=== PATIENT | female | born 1945 | race Caucasian/White ===

== ENCOUNTER 2017-12-11 16:04 | Inpatient (IN) | payer MEDICARE ==
[2017-12-11] VITALS (12 sets, daily range): BP systolic 131–210; BP diastolic 72–115; PULSE 78–97; RESP 18–24; TEMP 98.7–99.2; O2SAT 93–100
[~2017-12-11] VITALS: Ht 172.7 cm; Wt 70.3 kg
[~2017-12-11 16:04] MED LIST: ALPR0.5T99 PO; AMOX500T PO; ATOR10 PO; CALCTAB70 PO; CHEL50TA PO; ECOT325T PO; FLON0.053; FOSA70TA OR; FURO1TAB93 PO; GING550C PO; GLUCTAB PO; I-VITAB2 PO; LANSO15 PO; LEFL20 PO; NORT1CAP54 PO; NORV5TAB PO; PILO5TAB PO; PRED10 PO; RANI1TAB7 PO; REQU0.25 PO; SALI0.65; TYLE500T PO; VENTAER INH; VITA-13 PO; [UNRECOGNIZED DRUG - CODE] EACH EYE; [UNRECOGNIZED DRUG - CODE] EACH EYE
--- NOTE | 2017-12-11 16:38 | RADRPT ---
EXAM DATE: 12/11/2017 4:28 PM EDT AGE/SEX: 71 years / Female INDICATIONS: Chest pain, STEMI alert. CLINICAL DATA: This is the patient's initial encounter. Patient reports that signs and symptoms have been present for 1 day and indicates a pain score of Nonresponsive. MEDICAL/SURGICAL HISTORY: Non-responsive. Non-responsive. COMPARISON: No prior exams available for comparison. FINDINGS: The right hemidiaphragm is elevated. Lungs are hypoaerated but free of significant airspace disease Heart is mildly enlarged. Osseous structures appear intact. Postsurgical clips are seen in the left axilla. CONCLUSION: No evidence of acute airspace disease or significant congestion. Electronically signed by: Ford To MD 12/11/2017 4:36 PM EDT
--- NOTE | 2017-12-11 16:44 | PD ---
HPI Chief Complaint: Cardiac Complaint Time Seen by Provider: 16:13 Travel History International Travel<30 days: No Contact w/Intl Traveler<30days: No Traveled to known affect area: No History of Present Illness HPI 71-year-old female was found in by EMS after a fall. Patient states that she had a syncopal episode at home and fell. Patient states that she has a short moment of loss of consciousness. Patient complains of headache in the back of the head. Patient denies any visual change. Patient denies any neck pain. Patient denies any chest pain or shortness of breath. Patient denies abdominal pain. Patient denies any nausea vomiting diarrhea. Patient denies any fever chills. Patient denies any focal weakness or numbness of the extremity. Patient has history of diabetes type 2, hyperlipidemia. Patient has history of lung cancer breast cancer and melanoma. Patient status post right thoracotomy and lobectomy. Patient also has history of COPD, DVT, lupus, fibromyalgia, scleroderma involving esophagus, rheumatoid arthritis, thyroid nodules, GERD, peripheral neuropathy. EMS was called. EKG changes with questionable STEMI. STEMI was called by EMS on the way to the ED. PFSH Past Medical History Arthritis: Yes Asthma: No Autoimmune Disease: Yes Blood Disorders: No Cancer: Yes (RIGHT UPPER/MID LUNG, L BREAST CA, MELANOMA L LEG) Cardiovascular Problems: No COPD: Yes Diabetes: Yes (TYPE II, CONTROLLED) Patient Takes Glucophage: No Diminished Hearing: No Deep Vein Thrombosis: Yes Endocrine: Yes Gastrointestinal Disorders: Yes (HX OF GERD, SCLERODERMA OF ESOPHAGUS, ASPIRATION ISSUES) GERD: Yes Glaucoma: No Genitourinary: Yes Hepatitis: No Hiatal Hernia: No Hypertension: Yes Immune Disorder: Yes (LUPUS,FIBROMYALGIA, SCLERDERMA OF ESOPHAGUS, RHEUMATOID ARTHRITIS) Medical other: Yes (PERIPHERAL NEUROPATHY, ) Musculoskeletal: Yes (RHEUMATOID ARTHRITIS, BACK AND NECK PROBLEMS) Neurologic: Yes (RAYNAUD'S SYNDROME ZACKARY HANDS,HX OF THORACIC OUTLET SYNDROME, FIBROMYALGIA) Psychiatric: No Reproductive: No Respiratory: Yes (HX OF R LUNG CA 2006, COPD, SINUSITIS) Immunizations Current: Yes Thyroid Disease: Yes (MULTIPLE NODULES) ?: Not Menopausal: Yes Past Surgical History AICD: No Gynecologic Surgery: Yes (CERVICAL POLYPECTOMY) Joint Replacement: No Mastectomy: Yes Pacemaker: No Thoracic Surgery: Yes (THORACOTOMY WITH RIGHT UPPER AND MIDDLE LOBE REMOVED 2006) Other Surgery: Yes (MELANOMA REMOVED) Social History Alcohol Use: Yes (RARELY) Tobacco Use: No Substance Use: No Allergies-Medications (Allergen,Severity, Reaction): Coded Allergies: acetaminophen (Unverified Allergy, Severe, 02/11/17) azathioprine (Unverified Allergy, Severe, HEADACHES, FEVER, 02/11/17) cephalexin (Unverified Allergy, Severe, 02/11/17) ciprofloxacin (Unverified Allergy, Severe, DYSPNEA, 02/11/17) codeine (Unverified Allergy, Severe, 02/11/17) gabapentin (Unverified Allergy, Severe, VERTIGO, BLURRED VISION, 02/11/17) levofloxacin (Unverified Allergy, Severe, 02/11/17) oxycodone (Unverified Allergy, Severe, 02/11/17) pregabalin (Unverified Allergy, Severe, > HEPATIC ENZYMES, 02/11/17) cefazolin (Unverified Allergy, Intermediate, RASH, ITCHING, 02/11/17) duloxetine (Unverified Adverse Reaction, Unknown, NAUSEA, SEVERE HEADACHES , 02/11/17) Reported Meds & Prescriptions Reported Meds & Active Scripts Active Reported Atorvastatin (Atorvastatin Calcium) 10 Mg Tab 10 Mg PO HS Pamelor (Nortriptyline HCl) 25 Mg Cap 25 Mg PO HS Lasix (Furosemide) 40 Mg Tab 40 Mg PO BID Prednisone 10 Mg Tab 10 Mg PO DAILY Requip (Ropinirole HCl) 0.5 Mg Tab 0.5 Mg PO HS Xanax (Alprazolam) 0.5 Mg Tab 0.5 Mg PO Q4H PRN Glimepiride 1 Mg Tab 1 Mg PO DAILY Take with breakfast or first main meal Ventolin Hfa 18 GM Inh (Albuterol Sulfate) 90 Mcg/Act Aer 1 Puff INH Q4H PRN Aspirin 325 Mg Tab 325 Mg PO DAILY Review of Systems General / Constitutional: No: Fever Eyes: No: Visual changes HENT: Positive: Headaches Cardiovascular: No: Chest Pain or Discomfort Respiratory: No: Shortness of Breath Gastrointestinal: No: Abdominal Pain Genitourinary: No: Dysuria Musculoskeletal: No: Pain Skin: No Rash Neurologic: No: Weakness Psychiatric: No: Depression Endocrine: No: Polydipsia Hematologic/Lymphatic: No: Easy Bruising Physical Exam Narrative GENERAL: Well-nourished, well-developed patient. SKIN: Focused skin assessment warm/dry. HEAD: Normocephalic. Patient has 2 cm laceration on the occipital scalp area. No active bleeding. EYES: No scleral icterus. No injection or drainage. NECK: Supple, trachea midline. No JVD or lymphadenopathy. CARDIOVASCULAR: Regular rate and rhythm without murmurs, gallops, or rubs. RESPIRATORY: Breath sounds equal bilaterally. No accessory muscle use. GASTROINTESTINAL: Abdomen soft, non-tender, nondistended. MUSCULOSKELETAL: No cyanosis, or edema. BACK: Nontender without obvious deformity. No CVA tenderness. Neurologic exam: Patient is awake and alert oriented 3. Patient moves all extremity well. No obvious focal neurological deficit. Data Data Last Documented VS Vital Signs Date Time Temp Pulse Resp B/P (MAP) Pulse Ox O2 Delivery O2 Flow Rate FiO2 12/11/17 18:29 84 18 131/75 (93) 96 Nasal Cannula 2.00 12/11/17 16:24 99.1 Orders Orders Chest, Single Ap (12/11/17 16:17) Electrocardiogram (12/11/17 16:13) Complete Blood Count With Diff (12/11/17 16:13) Comprehensive Metabolic Panel (12/11/17 16:13) Creatine Kinase (Cpk) (12/11/17 16:13) Troponin I (12/11/17 16:13) Prothrombin Time / Inr (Pt) (12/11/17 16:13) Act Partial Throm Time (Ptt) (12/11/17 16:13) Ct Brain W/O Iv Contrast(Rout) (12/11/17 16:13) Iv Access Insert/Monitor (12/11/17 16:13) Ecg Monitoring (12/11/17 16:13) Oximetry (12/11/17 16:13) Ct Cerv Spine W/O Contrast (12/11/17 16:13) Nortriptyline (Pamelor) (12/11/17 16:45) Tramadol (Ultram) (12/11/17 17:15) Nicardipine Inj (Cardene Inj) (12/11/17 17:45) Ondansetron Odt (Zofran Odt) (12/11/17 18:45) Cta Brain W Iv Contrast W 3d (12/11/17 ) Cta Neck W Iv Contrast W 3d (12/11/17 ) Admit Order (Ed Use Only) (12/11/17 19:09) Labs Laboratory Tests Test 12/11/17 16:28 White Blood Count 16.7 TH/MM3 Red Blood Count 5.29 MIL/MM3 Hemoglobin 15.5 GM/DL Hematocrit 48.8 % Mean Corpuscular Volume 92.4 FL Mean Corpuscular Hemoglobin 29.4 PG Mean Corpuscular Hemoglobin Concent 31.8 % Red Cell Distribution Width 16.6 % Platelet Count 294 TH/MM3 Mean Platelet Volume 8.5 FL Neutrophils (%) (Auto) 85.3 % Lymphocytes (%) (Auto) 9.2 % Monocytes (%) (Auto) 5.1 % Eosinophils (%) (Auto) 0.0 % Basophils (%) (Auto) 0.4 % Neutrophils # (Auto) 14.2 TH/MM3 Lymphocytes # (Auto) 1.5 TH/MM3 Monocytes # (Auto) 0.9 TH/MM3 Eosinophils # (Auto) 0.0 TH/MM3 Basophils # (Auto) 0.1 TH/MM3 CBC Comment AUTO DIFF Differential Comment AUTO DIFF CONFIRMED Platelet Estimate NORMAL Platelet Morphology Comment ENLARGED Blood Urea Nitrogen 29 MG/DL Creatinine 1.33 MG/DL Random Glucose 184 MG/DL Total Protein 7.7 GM/DL Albumin 3.5 GM/DL Calcium Level 8.8 MG/DL Alkaline Phosphatase 309 U/L Aspartate Amino Transf (AST/SGOT) 41 U/L Alanine Aminotransferase (ALT/SGPT) 57 U/L Total Bilirubin 0.5 MG/DL Sodium Level 144 MEQ/L Potassium Level 3.7 MEQ/L Chloride Level 106 MEQ/L Carbon Dioxide Level 25.7 MEQ/L Anion Gap 12 MEQ/L Estimat Glomerular Filtration Rate 39 ML/MIN Total Creatine Kinase 111 U/L Troponin I 0.10 NG/ML MDM Medical Decision Making Medical Screen Exam Complete: Yes Emergency Medical Condition: Yes Interpretation(s) Last Impressions Chest X-Ray 12/11/171616 Signed Impressions: CONCLUSION: No evidence of acute airspace disease or significant congestion. Head CT 12/11/17 1613 Signed Impressions: CONCLUSION: 1. Left occipital skull fracture extending into the skull base with overlying cephalhematoma and near total opacification of the sphenoid sinus. 2. Significant subarachnoid hemorrhage in the left frontal and temporal region s 3. Very small subdural hematoma along the left frontal bone. 4. No evidence of true axial hematoma or infarct. 5. No evidence of significant mass effect or midline shift. Cervical Spine CT 12/11/17 1613 Signed Impressions: CONCLUSION: 1. Right occipital calvarial fracture. 2. Degenerative subluxations and advanced multilevel degenerative changes. Differential Diagnosis Differential diagnosis including syncope, scalp laceration, skull fracture, intracranial hemorrhage, electrolyte abnormality. Narrative Course 71-year-old female with syncope and head injury. EKG in the ED did not show any evidence of STEMI. Diagnosis Primary Impression: Subarachnoid hemorrhage Additional Impressions: Subdural hemorrhage Skull fracture Qualified Codes: S02.119B - Unspecified fracture of occiput, initial encounter for open fracture Syncope and collapse Admitting Information Admitting Physician Requests: Admit Bryan Manning MD Dec 11, 2017 16:44
[2017-12-11] MEDS ORDERED: NORTRIPTYLINE HCL 25 MG CAP PO ONE (16:45)
[2017-12-11 16:50] LABS: AUTOMATED NEUTROPHIL # 14.2 TH/MM3 (1.8-7.7); BASOPHIL # 0.1 TH/MM3 (0-0.2); BASOPHIL % 0.4 % (0.0-2.0); HEMATOCRIT 48.8 % (35.0-46.0); HEMOGLOBIN 15.5 GM/DL (11.6-15.3); LYMPH % 9.2 % (9.0-44.0); LYMPHOCYTE # 1.5 TH/MM3 (1.0-4.8); MEAN CELL VOLUME 92.4 FL (80.0-100.0); MEAN CORPUSCULAR HEMOGLOBIN 29.4 PG (27.0-34.0); MEAN CORPUSCULAR HGB CONC 31.8 % (32.0-36.0); MEAN PLATELET VOLUME 8.5 FL (7.0-11.0); MONO % 5.1 % (0.0-8.0); MONOCYTE # 0.9 TH/MM3 (0-0.9); NEUT % 85.3 % (16.0-70.0); PLATELET COUNT 294 TH/MM3 (150-450); RED BLOOD COUNT 5.29 MIL/MM3 (4.00-5.30); RED CELL DISTRIBUTION WIDTH 16.6 % (11.6-17.2); WHITE BLOOD COUNT 16.7 TH/MM3 (4.0-11.0)
[2017-12-11 17:11] LABS: ALKALINE PHOSPHATASE 309 U/L (45-117); BLOOD UREA NITROGEN 29 MG/DL (7-18); TOTAL BILIRUBIN ADULT 0.5 MG/DL (0.2-1.0); TOTAL PROTEIN 7.7 GM/DL (6.4-8.2)
[2017-12-11] MEDS ORDERED: traMADol HCL 50 MG TAB PO ONE (17:15)
[2017-12-11 17:17] LABS: ALBUMIN 3.5 GM/DL (3.4-5.0); ALT (GPT) 57 U/L (10-53); AST (GOT) 41 U/L (15-37); BICARBONATE 25.7 MEQ/L (21.0-32.0); CALCIUM 8.8 MG/DL (8.5-10.1); CHLORIDE 106 MEQ/L (98-107); CREATININE 1.33 MG/DL (0.50-1.00); GLOMERULAR FILTRATION RATE 39 ML/MIN (>89); GLUCOSE,RANDOM 184 MG/DL (74-106); SODIUM (NA) 144 MEQ/L (136-145)
--- NOTE | 2017-12-11 17:34 | RADRPT ---
EXAM DATE: 12/11/2017 5:22 PM EDT AGE/SEX: 71 years / Female INDICATIONS: Syncopal episode. Hematoma to the back of the head. CLINICAL DATA: This is the patient's initial encounter. Patient reports that signs and symptoms have been present for 1 day and indicates a pain score of 0/10. MEDICAL/SURGICAL HISTORY: Hypertension. Chronic obstructive pulmonary disease. Diabetes mellitus type II. Lung cancer. Umbilical hernia repair. RADIATION DOSE: 66.34 CTDI (mGy) COMPARISON: No prior exams available for comparison. TECHNIQUE: CT of the head without contrast. Using automated exposure control and adjustment of the mA and/or kV according to patient size, radiation dose was kept as low as reasonably achievable to ob tain optimal diagnostic quality images. FINDINGS: Subarachnoid blood is identified in the interhemispheric fissure, left sylvian fissure and along the left frontal convexity. There is no discrete parenchymal hematoma. Very small subdural hematoma is id entified along the left frontal bone. There is no more than 2 to 3 mm in thickness. There is no evidence of focal mass effect or significant hypodensity characteristic of an acute infar ct. The sphenoid sinus is almost completely opacified and contains an air-fluid level. A left occipital s kull fracture extending to the base of the skull is noted. Cephalhematoma is seen along the fracture. CONCLUSION: 1. Left occipital skull fracture extending into the skull base with overlying cephalhematoma and juliet r total opacification of the sphenoid sinus. 2. Significant subarachnoid hemorrhage in the left frontal and temporal regions 3. Very small subdural hematoma along the left frontal bone. 4. No evidence of true axial hematoma or infarct. 5. No evidence of significant mass effect or midline shift. Electronically signed by: Ford To MD 12/11/2017 5:33 PM EDT
[2017-12-11] MEDS: niCARdipine INJ 25 MG in SODIUM CHLOR 0.9% 250 ML INJ 250 ML IV PRN ×2 (17:51→23:26)
--- NOTE | 2017-12-11 18:17 | RADRPT ---
EXAM DATE: 12/11/2017 6:11 PM EDT AGE/SEX: 71 years / Female INDICATIONS: Trauma, syncopal episode. CLINICAL DATA: This is the patient's initial encounter. Patient reports that signs and symptoms have been present for 1 day and indicates a pain score of 8/10. MEDICAL/SURGICAL HISTORY: Hypertension. Chronic obstructive pulmonary disease. Diabetes. Zeina g cancer. None. RADIATION DOSE: 20.44 CTDI (mGy) COMPARISON: No prior exams available for comparison. TECHNIQUE: Contiguous axial images were obtained using helical multirow detector technique. The vol umetric data was post-processed with multiplanar reconstruction in oblique axial, sagittal, and coron al planes. Using automated exposure control and adjustment of the mA and/or kV according to patient s ize, radiation dose was kept as low as reasonably achievable to obtain optimal diagnostic quality gita ges. FINDINGS: Vertebrae: Normal vertebral body height. There is minimally displaced fracture right occipital bone. Alignment: Minimal anterolisthesis C3 on 4 and minimal retrolisthesis C5 on 6. Advanced multilevel d egenerative changes. No cervical vertebral body fractures. Sclerotic focus right aspect of T3. C2-3: The bony spinal canal is normal in size. No evidence of disc bulge or herniation. The neural foramina are bilaterally patent. C3-4: The bony spinal canal is normal in size. No evidence of disc bulge or herniation. The neural foramina are bilaterally patent. C4-5: Posterior disc osteophyte complex and bilateral neural foraminal narrowing. No canal stenosis C5-6: Posterior disc osteophyte complex and bilateral neural foraminal narrowing. No canal stenosis C6-7: Posterior disc osteophyte complex and bilateral neural foraminal narrowing. No canal stenosis C7-T1: The bony spinal canal is normal in size. No evidence of disc bulge or herniation. The neura l foramina are bilaterally patent. CONCLUSION: 1. Right occipital calvarial fracture. 2. Degenerative subluxations and advanced multilevel degenerative changes. Electronically signed by: Roberto Auguste MD 12/11/2017 6:15 PM EDT
[2017-12-11] MEDS ORDERED: ROPI.5 PO (18:40)
[2017-12-11] MEDS ORDERED: ASPI-183 PO (18:40)
[2017-12-11] MEDS ORDERED: PRED10 PO (18:40)
[2017-12-11] MEDS ORDERED: ATOR10TA15 PO (18:40)
[2017-12-11] MEDS ORDERED: VENTAER INH (18:40)
[2017-12-11] MEDS ORDERED: ALPR.5 PO (18:40)
[2017-12-11] MEDS ORDERED: PAME25CA PO (18:40)
[2017-12-11] MEDS ORDERED: FURO1TAB60 PO (18:40)
[2017-12-11] MEDS ORDERED: GLIM1TAB PO (18:40)
[2017-12-11] MEDS ORDERED: ONDANSETRON ODT 4 MG TAB PO ONE (18:45)
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
[2017-12-11] MEDS ORDERED: SENNOSIDES 8.6 MG TAB PO PRN (19:45)
[2017-12-11] MEDS ORDERED: NURSING INFORMATION XX SCH (19:45)
[2017-12-11] MEDS ORDERED: BISACODYL 10 MG SUPP RECTAL PRN (19:45)
[2017-12-11] MEDS ORDERED: LACTULOSE SYRUP 20 GM/30 ML CUP PO PRN (19:45)
[2017-12-11] MEDS ORDERED: SODIUM CHLORIDE 0.9% FLUSH 10 ML FLUSH IV FLUSH PRN (19:45)
[2017-12-11] MEDS ORDERED: ONDANSETRON ODT 4 MG TAB PO PRN (19:45)
[2017-12-11] MEDS ORDERED: CHLORHEXIDINE GLUCONATE 2 % 1 PACK (2 CLOTHS) TOP PRN (19:45)
[2017-12-11] MEDS ORDERED: MAGNESIUM HYDROXIDE SUSP 30 ML CUP PO PRN (19:45)
[2017-12-11] MEDS ORDERED: IOHEXOL 350 MG/ML 10 ML VIAL (for RAD DIAG) IVCONTRAST ONE (20:26)
--- NOTE | 2017-12-11 20:39 | RADRPT ---
EXAM DATE: 12/11/2017 8:22 PM EDT AGE/SEX: 71 years / Female INDICATIONS: Trauma, syncopal episode. CLINICAL DATA: This is the patient's initial encounter. Patient reports that signs and symptoms have been present for 1 day and indicates a pain score of 3/10. MEDICAL/SURGICAL HISTORY: Hypertension. Chronic obstructive pulmonary disease. Lupus. Lung cance r, renal disease, breast cancer, melanoma in leg. None. RADIATION DOSE: 27.53 CTDI (mGy) ; Combined studies COMPARISON: No prior exams available for comparison. TECHNIQUE: Volumetric scanning was performed using a multirow detector CT scanner during bolus infus ion of 75 ml Omnipaque 350 (iohexol) nonionic water-soluble contrast as a cumulative dose for multip le exams. The data was postprocessed with a variety of visualization algorithms including full-volu me maximum intensity projection, multiplanar sliding thin-slab reformation, curved-planar reformation , and surface-rendering techniques. Using automated exposure control and adjustment of the mA and/or kV according to patient size, radiation dose was kept as low as reasonably achievable to obtain opti mal diagnostic quality images. FINDINGS: Aortic Arch: There is a three-vessel origin of the great vessels from the aorta. No evidence of ost ial narrowing Right Carotid: The common carotid artery is intact. The mild plaque in the right carotid bulb. The internal carotid artery lumen is smooth without stenosis. The external carotid artery is intact. Left Carotid: The common carotid artery is intact. The carotid bulb has mild soft tissue and calcif ied plaque causing mild narrowing in the 30-40 % range. The internal carotid artery lumen is smooth without stenosis. The external carotid artery is intact. Vertebrals: The vertebral arteries have a symmetric diameter. No stenotic lesions are seen. Elevated flow velocities and ICA/CCA ratios have been found to correlate with increased degrees of ve ssel stenosis, calculated as percentage of diameter relative to a normal segment of distal ICA/CCA. CONCLUSION: 1. No hemodynamically significant stenosis in either carotid artery. 2. Mild narrowing in the left carotid bulb estimated to be 30-40 %. Electronically signed by: Roberto Auguste MD 12/11/2017 8:38 PM EDT
--- NOTE | 2017-12-11 20:42 | RADRPT ---
EXAM DATE: 12/11/2017 8:23 PM EDT AGE/SEX: 71 years / Female INDICATIONS: Trauma, syncopal episode. CLINICAL DATA: This is the patient's initial encounter. Patient reports that signs and symptoms have been present for 1 day and indicates a pain score of 3/10. MEDICAL/SURGICAL HISTORY: Hypertension. Lupus. Chronic obstructive pulmonary disease. Lung cance r, Renal disease, breast cancer, melanoma in leg. None. RADIATION DOSE: 27.53 CTDI (mGy) ; Combined studies COMPARISON: No prior exams available for comparison. TECHNIQUE: Volumetric scanning was performed using a multi-row detector CT scanner during bolus infu makayla of 75 ml Omnipaque 350 (iohexol) nonionic water-soluble contrast as a single exam dose. The d gracie was post processed with a variety of visualization algorithms including full volume maximum inten sity projection, multi-planar sliding thin slab reformation, curved planar reformation, and surface r endering techniques. Using automated exposure control and adjustment of the mA and/or kV according t o patient size, radiation dose was kept as low as reasonably achievable to obtain optimal diagnostic quality images. FINDINGS: There is excellent visualization of the major intracranial arteries out to the second-order branch ve ssels. There is no evidence for aneurysm, vessel truncation or stenosis, and no evidence for vascula r malformation. Dominant left vertebral artery. Distal right vertebral artery not seen. Small anterio r communicating artery. Hypoplastic posterior to indicating arteries. Basilar artery normal. Anterior , middle and posterior cerebral arteries are normal. Right occipital fracture. CONCLUSION: 1. Right occipital calvarial fracture. 2. No large vessel stenosis or aneurysm. 3. Dominant left vertebral artery. 4. Distal right vertebral artery not seen. Electronically signed by: Roberto Auguste MD 12/11/2017 8:40 PM EDT
--- NOTE | 2017-12-11 20:52 | EKG ---
Date Performed: 12/11/2017 Time Performed: 16:08:09 PTAGE: 71 years EKG: ACCELERATED JUNCTIONAL RHYTHM POSSIBLE RIGHT VENTRICULAR CONDUCTION DELAY VOLTAGE CRITERIA FOR LVH NONSPECIFIC T-WAVE ABNORMALITY POSSIBLE PROLONGED QT AND/OR TU FUSION ABNORMAL ECG PREVIOUS TRACING : 10/14/2013 10.43 Compared to previous tracing, possible accelerated junction al rhythm has replaced Sinus rhythm , T wave amplitude has increased diffusely. DOCTOR: Donavan Otto Interpretating Date/Time 12/11/2017 20:50:54
[2017-12-11] MEDS: DOCUSATE SODIUM 50 MG/SENNA 8.6 MG TAB PO SCH (21:00)
[2017-12-11] MEDS: SODIUM CHLORIDE 0.9% FLUSH 10 ML FLUSH IV FLUSH SCH (21:00)
[2017-12-11] MEDS: SODIUM CHLOR 0.9% 1000 ML INJ 1,000 ML IV SCH (21:23)
[2017-12-11] MEDS ORDERED: GLUCAGON 1 MG/ML VIAL OTHER PRN (21:30)
[2017-12-11] MEDS: FAMOTIDINE 20 MG/2 ML VIAL IV PUSH SCH (21:30)
[2017-12-11] MEDS ORDERED: DEXTROSE 50% IN WATER 50 ML VIAL(D50) IV PUSH PRN (21:30)
[2017-12-11] MEDS: ATORVASTATIN 10 MG TAB PO SCH (21:30)
[2017-12-11] MEDS: NORTRIPTYLINE HCL 25 MG CAP PO SCH (21:57)
[2017-12-11 22:51] LABS: PROTHROMBIN TIME - PATIENT 10.2 SEC (9.8-11.6)
[2017-12-11] MEDS: levETIRAcetam INJ 100 ML IV SCH (23:26)
[2017-12-11] MEDS: MORPHINE SULFATE 4 MG/ML INJ IV PUSH PRN (23:27)
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
[2017-12-12] VITALS (14 sets, daily range): BP systolic 123–167; BP diastolic 62–79; PULSE 76–84; RESP 19–38; TEMP 97.8–99; O2SAT 97–100
[2017-12-12] MEDS: niCARdipine INJ 25 MG in SODIUM CHLOR 0.9% 250 ML INJ 250 ML IV PRN ×3 (03:36→21:39)
[2017-12-12 03:44] LABS: AUTOMATED NEUTROPHIL # 19.2 TH/MM3 (1.8-7.7); BASOPHIL # 0.1 TH/MM3 (0-0.2); BASOPHIL % 0.7 % (0.0-2.0); HEMATOCRIT 43.4 % (35.0-46.0); HEMOGLOBIN 13.9 GM/DL (11.6-15.3); LYMPH % 2.9 % (9.0-44.0); LYMPHOCYTE # 0.6 TH/MM3 (1.0-4.8); MEAN CELL VOLUME 91.2 FL (80.0-100.0); MEAN CORPUSCULAR HEMOGLOBIN 29.2 PG (27.0-34.0); MEAN PLATELET VOLUME 8.4 FL (7.0-11.0); MONO % 4.8 % (0.0-8.0); NEUT % 91.6 % (16.0-70.0); PLATELET COUNT 242 TH/MM3 (150-450); RED BLOOD COUNT 4.76 MIL/MM3 (4.00-5.30); RED CELL DISTRIBUTION WIDTH 16.5 % (11.6-17.2)
[2017-12-12] MEDS: CHLORHEXIDINE GLUCONATE 2 % 1 PACK (2 CLOTHS) TOP SCH (04:00)
[2017-12-12 04:05] LABS: ALBUMIN 3.1 GM/DL (3.4-5.0); ALT (GPT) 47 U/L (10-53); AST (GOT) 29 U/L (15-37); BLOOD UREA NITROGEN 22 MG/DL (7-18); CALCIUM 8.5 MG/DL (8.5-10.1); CHLORIDE 108 MEQ/L (98-107); CREATININE 0.88 MG/DL (0.50-1.00); GLOMERULAR FILTRATION RATE 63 ML/MIN (>89); GLUCOSE,RANDOM 176 MG/DL (74-106); MAGNESIUM 2.2 MG/DL (1.5-2.5); PROTHROMBIN TIME - PATIENT 10.2 SEC (9.8-11.6); SODIUM (NA) 145 MEQ/L (136-145)
[2017-12-12 04:10] LABS: ALKALINE PHOSPHATASE 271 U/L (45-117); PHOSPHORUS 2.7 MG/DL (2.5-4.9); TOTAL BILIRUBIN ADULT 0.8 MG/DL (0.2-1.0); TOTAL PROTEIN 6.8 GM/DL (6.4-8.2); TROPONIN I 0.14 NG/ML (0.02-0.05)
--- NOTE | 2017-12-12 05:16 | RADRPT ---
EXAM DATE: 12/12/2017 4:41 AM EDT AGE/SEX: 71 years / Female INDICATIONS: Cephalgia. Follow up subarachnoid hemorrhage. CLINICAL DATA: This is the patient's subsequent encounter. Patient reports that signs and symptoms h ave been present for 2 days and indicates a pain score of 9/10. MEDICAL/SURGICAL HISTORY: Hypertension. Carcinoma, lung. Carcinoma, breast. Lupus. DVT. None. RADIATION DOSE: 66.34 CTDI (mGy) COMPARISON: [facility] [place], CT BRAIN W/O CONTRAST, 12/11/2017. . TECHNIQUE: CT of the head without contrast. Using automated exposure control and adjustment of the mA and/or kV according to patient size, radiation dose was kept as low as reasonably achievable to ob tain optimal diagnostic quality images. FINDINGS: Cerebrum: Again noted is bilateral subarachnoid hemorrhage being worse on the left. There appears to be a possible small component of a left frontal subdural hemorrhage measuring up to 3 mm. There is 3 mm of [id number] midline shift. There is intraventricular hemorrhage seen dependently in the late ral ventricles. Ventricular system is patent. The basal cisterns are open. There is low density in th e cerebral white matter likely representing areas of pre-existing demyelination. Posterior Fossa: The cerebellum and brainstem are intact. The 4th ventricle is midline. The cerebe llopontine angle is unremarkable. Extracranial: The visualized portion of the orbits is intact. There is bilateral sphenoid sinus dise ase. Skull: The calvaria is intact. No evidence of skull fracture. CONCLUSION: 1. Persistent subarachnoid hemorrhage. 2. Small amount of interventricular hemorrhage. 3. Possible minimal left frontal subdural hemorrhage measuring 3 mm. 4. Compared to the prior exam a significant change is not clearly seen. Electronically signed by: Oziel Strauss MD 12/12/2017 5:14 AM EDT
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
[2017-12-12] MEDS: SODIUM CHLORIDE 0.9% FLUSH 10 ML FLUSH IV FLUSH SCH ×2 (09:58→20:50)
[2017-12-12] MEDS: levETIRAcetam INJ 100 ML IV SCH ×2 (09:58→20:51)
[2017-12-12] MEDS: FAMOTIDINE 20 MG/2 ML VIAL IV PUSH SCH ×2 (09:58→20:50)
[2017-12-12] MEDS: GLIMEPIRIDE 1 MG TAB PO SCH (09:58)
[2017-12-12] MEDS: predniSONE 10 MG TAB PO SCH (09:58)
[2017-12-12] MEDS: DOCUSATE SODIUM 50 MG/SENNA 8.6 MG TAB PO SCH ×2 (09:58→20:50)
[2017-12-12] MEDS: SODIUM CHLOR 0.9% 1000 ML INJ 1,000 ML IV SCH ×2 (09:59→18:00)
[2017-12-12] MEDS ORDERED: LISINOPRIL 5 MG TAB PO SCH (10:30)
[2017-12-12] MEDS: ENALAPRILAT 2.5 MG/2 ML VIAL IV PUSH PRN (11:18)
--- NOTE | 2017-12-12 11:35 | HHI.NSPN ---
(Reed Macdonaldbella LAM) History Chief Complaint: Slight headache (Barry MacdonaldRidge LAM) Interval History 12/11: 71 yo fall secondary to probable syncopal episode 12/12: The patient is drowsy when seen this morning. She awakens to voice and briefly participates before drifting back off to sleep. She does have some confusion and it appears that she may have either some receptive aphasia. Sensation intact upon evaluation. Mild left upper extremity weakness due to pain secondary to rotator cuff injury, and normal to the other extremities. She went for a repeat CT brain this morning which was without change. (Reed Macdonaldbella LAM) Exam Results 12/10/17 12/10/17 12/11/17 12/11/17 12/12/17 12/12/17 06:00 18:00 06:00 18:00 06:00 18:00 Intake Total 240 ml Output Total 1400 ml Balance -1160 ml Intake Oral 240 ml Output Urine Total 1400 ml # Bowel Movements 0 Vital Signs Date Time Temp Pulse Resp B/P (MAP) Pulse Ox O2 Delivery O2 Flow Rate FiO2 12/12/17 08:33 100 Nasal Cannula 3.50 12/12/17 06:00 76 12/12/17 04:00 80 12/12/17 04:00 99.0 80 25 143/64 (90) 99 12/12/17 03:36 82 111/60 12/12/17 02:00 80 12/12/17 00:01 100 12/12/17 00:00 98.1 81 24 167/79 (108) 100 12/12/17 00:00 81 12/11/17 23:26 78 149/71 12/11/17 22:00 98 Nasal Cannula 3.00 12/11/17 21:04 81 12/11/17 21:04 12/11/17 21:00 98.7 82 24 195/85 (121) 98 12/11/17 20:10 83 20 164/87 (112) 95 Room Air 12/11/17 19:21 80 20 156/72 (100) 93 Room Air 12/11/17 18:29 84 18 131/75 (93) 96 Nasal Cannula 2.00 12/11/17 18:08 97 18 173/82 (112) 98 Room Air 12/11/17 17:51 80 18 176/89 (118) 98 Room Air 12/11/17 17:51 82 212/116 12/11/17 17:33 82 18 210/115 (146) 97 Nasal Cannula 2.00 12/11/17 16:42 80 18 179/101 (127) 96 Room Air 12/11/17 16:25 78 18 99 Nasal Cannula 2.00 12/11/17 16:24 99.1 81 18 193/114 (140) 95 Nasal Cannula 2.00 12/11/17 16:22 18 100 Nasal Cannula 2.00 12/11/17 16:12 99.2 82 18 97 Nasal Cannula 3.00 (Barry Macdonald) Physical Examination GENERAL: Drowsy and briefly awakens to voice. Affect seems normal. Interacts but does require coaxing. No apparent distress. HEENT: Normocephalic, small occipital scalp laceration. PERRLA 2 mm, EOMI intact. No otorrhea or rhinorrhea. MMM & pink, tongue midline to protrusion. MUSCULOSKELETAL: CAGLE to command w/o difficulty. No evident clubbing or deformity. TTP at the left shoulder joint due to a rotator cuff injury. NEUROLOGICAL: Drowsy, drifts back off to sleep w/o repeated stimulation. Requires coaxing to interact and follow commands. Opens eyes to voice. Oriented to name, being in a hospital in [place], and time. When asked date of and what city she was in she would repeat it was 2017. CN II through XII appear grossly intact. Sensation is intact to light touch to the extremities. Motor strength is 4 to 4+/5 to the LUE secondary to pain r/t rotator cuff injury , o/w it is 5/5 to all major flexion & extension muscle groups of the RUE & BLE. (Barry Macdonald) Lab, Micro, Other Results Recent Impressions Head CT 12/12/17 0600 Signed Impressions: CONCLUSION: 1. Persistent subarachnoid hemorrhage. 2. Small amount of interventricular hemorrhage. 3. Possible minimal left frontal subdural hemorrhage measuring 3 mm. 4. Compared to the prior exam a significant change is not clearly seen. Chest X-Ray 12/11/177 Signed Impressions: CONCLUSION: No evidence of acute airspace disease or significant congestion. Head CT 12/11/17 1613 Signed Impressions: CONCLUSION: 1. Left occipital skull fracture extending into the skull base with overlying cephalhematoma and near total opacification of the sphenoid sinus. 2. Significant subarachnoid hemorrhage in the left frontal and temporal region s 3. Very small subdural hematoma along the left frontal bone. 4. No evidence of true axial hematoma or infarct. 5. No evidence of significant mass effect or midline shift. Cervical Spine CT 12/11/171612 Signed Impressions: CONCLUSION: 1. Right occipital calvarial fracture. 2. Degenerative subluxations and advanced multilevel degenerative changes. Neck CTA 12/11/17 0000 Addendum Impressions: CONCLUSION: 1. No hemodynamically significant stenosis in either carotid artery. 2. Mild narrowing in the left carotid bulb estimated to be 30-40 %. Head CTA 12/11/17 0000 Signed Impressions: CONCLUSION: 1. Right occipital calvarial fracture. 2. No large vessel stenosis or aneurysm. 3. Dominant left vertebral artery. 4. Distal right vertebral artery not seen. Laboratory Tests Test 12/11/17 16:28 12/11/17 20:45 12/11/17 22:05 12/12/17 03:10 White Blood Count 16.7 TH/MM3 21.0 TH/MM3 Red Blood Count 5.29 MIL/MM3 4.76 MIL/MM3 Hemoglobin 15.5 GM/DL 13.9 GM/DL Hematocrit 48.8 % 43.4 % Mean Corpuscular Volume 92.4 FL 91.2 FL Mean Corpuscular Hemoglobin 29.4 PG 29.2 PG Mean Corpuscular Hemoglobin Concent 31.8 % 32.0 % Red Cell Distribution Width 16.6 % 16.5 % Platelet Count 294 TH/MM3 242 TH/MM3 Mean Platelet Volume 8.5 FL 8.4 FL Neutrophils (%) (Auto) 85.3 % 91.6 % Lymphocytes (%) (Auto) 9.2 % 2.9 % Monocytes (%) (Auto) 5.1 % 4.8 % Eosinophils (%) (Auto) 0.0 % 0.0 % Basophils (%) (Auto) 0.4 % 0.7 % Neutrophils # (Auto) 14.2 TH/MM3 19.2 TH/MM3 Lymphocytes # (Auto) 1.5 TH/MM3 0.6 TH/MM3 Monocytes # (Auto) 0.9 TH/MM3 1.0 TH/MM3 Eosinophils # (Auto) 0.0 TH/MM3 0.0 TH/MM3 Basophils # (Auto) 0.1 TH/MM3 0.1 TH/MM3 CBC Comment AUTO DIFF DIFF FINAL Differential Comment AUTO DIFF CONFIRMED Platelet Estimate NORMAL Platelet Morphology Comment ENLARGED Blood Urea Nitrogen 29 MG/DL 22 MG/DL Creatinine 1.33 MG/DL 0.88 MG/DL Random Glucose 184 MG/DL 176 MG/DL Total Protein 7.7 GM/DL 6.8 GM/DL Albumin 3.5 GM/DL 3.1 GM/DL Calcium Level 8.8 MG/DL 8.5 MG/DL Alkaline Phosphatase 309 U/L 271 U/L Aspartate Amino Transf (AST/SGOT) 41 U/L 29 U/L Alanine Aminotransferase (ALT/SGPT) 57 U/L 47 U/L Total Bilirubin 0.5 MG/DL 0.8 MG/DL Sodium Level 144 MEQ/L 145 MEQ/L Potassium Level 3.7 MEQ/L 3.7 MEQ/L Chloride Level 106 MEQ/L 108 MEQ/L Carbon Dioxide Level 25.7 MEQ/L 27.0 MEQ/L Anion Gap 12 MEQ/L 10 MEQ/L Estimat Glomerular Filtration Rate 39 ML/MIN 63 ML/MIN Total Creatine Kinase 111 U/L Troponin I 0.10 NG/ML 0.08 NG/ML 0.14 NG/ML Nasal Screen MRSA (PCR) MRSA DETECTED Prothrombin Time 10.2 SEC 10.2 SEC Prothromb Time International Ratio 1.0 RATIO 1.0 RATIO Activated Partial Thromboplast Time 22.3 SEC 23.0 SEC Phosphorus Level 2.7 MG/DL Magnesium Level 2.2 MG/DL Lactic Acid Level 3.1 mmol/L (Barry Macdonald) Medical Decision Making Impression and Plan Impression: TBI - probable fall secondary to syncopal episode Occipital skull fracture Patient is doing fairly well. Slight headache. Still with some confusion and apparent receptive aphasia. Cranial Nerves appear intact. No sensory deficits to extremities. Mild weakness to LUE secondary to pain due to rotator cuff injury, normal in other extremities. Past 24 hrs: 99.2 T max. Mostly hypertensive. Reviewed labs for today. Increase in leukocytosis. Haemoglobin WNL. INR 1.0 & aPTT 23.0. Sodium 145. Improved renal function. Transaminases now WNL & improvement in alk phos. Increase in troponin I. Elevated lactic acid. CT brain demonstrated a persistent SAH w/a small amount of IVH & a minimal left frontal SDH, no significant change. Plan: Primary & critical care management per Physical Therapist Assistant. Stat CT for any decline in neuro status. Monitor serum sodium. Maintain SBP between 120 and 150 mm Hg. Hold pharmacologic DVT prophylaxis. Mechanical DVT prophylaxis. Stress ulcer prophylaxis. (Barry Macdonald) Attending Statement The exam, history, and the medical decision-making described in the above note were completed with the assistance of the mid-level provider. I reviewed and agree with the findings presented. I attest that I had a [id number] encounter with the patient on the same day, and personally performed and documented my assessment and findings in the medical record. Patient's examination today reveals mild lethargy, opens eyes readily to voice. Follows commands No focal cranial nerve deficit Complains of left upper extremity shoulder pain with motor testing, otherwise reasonably good strength throughout the upper and lower extremities 12/12/2017 follow-up CT scan head images reviewed by the undersigned and reveal stable primarily left hemisphere subarachnoid hemorrhage. Minimal subdural fluid collection. No significant midline shift or ventriculomegaly. Continue to control blood pressure preferably within 120-160 range with monitoring of sodium to keep within normal limits. May mobilize out of bed with therapy Prefer to continue nonchemical DVT prophylaxis at this time Phillip for seizure prophylaxis (Nelson Le MD) Barry Macdonald Dec 12, 2017 11:35 Nelson Le MD Dec 12, 2017 22:29
--- NOTE | 2017-12-12 16:20 | EKG ---
Date Performed: 12/12/2017 Time Performed: 03:53:10 PTAGE: 71 years EKG: Possible ectopic atrial rhythm rSr'(V1) - probable normal variant Possible left ventricular hypertrophy Lateral T wave changes are probably due to ventricular hypertrophy, cannot rule out isch emia Abnormal ECG PREVIOUS TRACING : 12/11/2017 22.16 Compared to previous tracing, ectopic atrial rhythm has rep laced predominantly accelerated junctional rhythm. DOCTOR: Donavan Otto Interpretating Date/Time 12/12/2017 16:18:45
--- NOTE | 2017-12-12 16:23 | EKG ---
Date Performed: 12/11/2017 Time Performed: 22:16:26 PTAGE: 71 years EKG: Possible accelerated junctional rhythm with 4th through 8th beats possibly edson of johnnie ng atrial pacemaker Diffuse nonspecific T wave abnormality, cannot rule out prolonged QT interval Abn ormal ECG NO PREVIOUS TRACING DOCTOR: Donavan Otto Interpretating Date/Time 12/12/2017 16:21:02
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
[2017-12-12] MEDS: NORTRIPTYLINE HCL 25 MG CAP PO SCH (20:50)
[2017-12-12] MEDS: ATORVASTATIN 10 MG TAB PO SCH (20:50)
[2017-12-12] MEDS ORDERED: IOHEXOL 350 MG/ML 10 ML VIAL (for RAD DIAG) IVCONTRAST ONE (23:23)
--- NOTE | 2017-12-12 23:33 | RADRPT ---
EXAM DATE: 12/12/2017 11:23 PM EDT AGE/SEX: 71 years / Female INDICATIONS: Blunt pelvic trauma. CLINICAL DATA: This is the patient's initial encounter. Patient reports that signs and symptoms have been present for 1 day and indicates a pain score of 6/10. MEDICAL/SURGICAL HISTORY: Lupus. Carcinoma, lung. Hypertension. Diabetes. . ORAL CONTRAST: No oral contrast ingested. RADIATION DOSE: 10.15 CTDI (mGy) COMPARISON: No prior exams available for comparison. TECHNIQUE: Multiple contiguous axial images were obtained through the abdomen and pelvis following b olus infusion of 100 ml Omnipaque 350 (iohexol) nonionic water-soluble contrast as a single exam do se. No oral contrast ingested. Using automated exposure control and adjustment of the mA and/or kV a ccording to patient size, the radiation dose was kept as low as reasonably achievable to obtain optim al diagnostic quality images. FINDINGS: Lower Lungs: Minimal bibasilar atelectasis/scarring. Liver: The liver has a homogeneous density without space-occupying lesion. There is no dilation of th e biliary tree. Spleen: Homogeneous density without enlargement. Pancreas: Unremarkable without mass or calcification. Kidneys: Normal in size and shape. No evidence of mass or hydronephrosis. Small left renal low-densi ty. Adrenal Glands: Unremarkable. Aorta: Atherosclerotic disease of the abdominal aorta without aneurysmal dilation. Bowel/Mesentery: Scattered diverticulosis. Abdominal Wall: Intact. Retroperitoneum: No evidence of adenopathy in the retrocrural, para-aortic, or deep pelvic regions. Bladder: Contours are smooth. Bladder contains De La Cruz catheter Reproductive Organs: No abnormal masses or calcifications seen. Inguinal: The inguinal region is unremarkable without evidence of adenopathy. Bony Structures: Scattered degenerative changes including lumbosacral junction.. CONCLUSION: 1. No abdominal visceral injury. Electronically signed by: Roberto Auguste MD 12/12/2017 11:31 PM EDT
[2017-12-13] VITALS (15 sets, daily range): BP systolic 108–148; BP diastolic 56–71; PULSE 77–88; RESP 18–28; TEMP 97.6–99.8; O2SAT 94–100
[2017-12-13] MEDS: niCARdipine INJ 25 MG in SODIUM CHLOR 0.9% 250 ML INJ 250 ML IV PRN ×3 (02:01→07:00)
[2017-12-13] MEDS: CHLORHEXIDINE GLUCONATE 2 % 1 PACK (2 CLOTHS) TOP SCH (04:00)
[2017-12-13 04:06] LABS: AUTOMATED NEUTROPHIL # 15.2 TH/MM3 (1.8-7.7); BASOPHIL # 0.1 TH/MM3 (0-0.2); BASOPHIL % 0.4 % (0.0-2.0); EOSINOPHIL % 0.1 % (0.0-4.0); HEMATOCRIT 42.6 % (35.0-46.0); HEMOGLOBIN 13.6 GM/DL (11.6-15.3); LYMPHOCYTE # 0.7 TH/MM3 (1.0-4.8); MEAN CELL VOLUME 93.7 FL (80.0-100.0); MONO % 4.8 % (0.0-8.0); MONOCYTE # 0.8 TH/MM3 (0-0.9); NEUT % 90.7 % (16.0-70.0); PLATELET COUNT 211 TH/MM3 (150-450); RED BLOOD COUNT 4.54 MIL/MM3 (4.00-5.30); RED CELL DISTRIBUTION WIDTH 16.4 % (11.6-17.2); WHITE BLOOD COUNT 16.7 TH/MM3 (4.0-11.0)
[2017-12-13 04:14] LABS: ALBUMIN 2.6 GM/DL (3.4-5.0); ALT (GPT) 37 U/L (10-53); AST (GOT) 24 U/L (15-37); BICARBONATE 24.9 MEQ/L (21.0-32.0); BLOOD UREA NITROGEN 13 MG/DL (7-18); CALCIUM 8.1 MG/DL (8.5-10.1); CHLORIDE 113 MEQ/L (98-107); CREATININE 0.55 MG/DL (0.50-1.00); GLOMERULAR FILTRATION RATE 109 ML/MIN (>89); GLUCOSE,RANDOM 104 MG/DL (74-106); SODIUM (NA) 147 MEQ/L (136-145)
[2017-12-13 04:17] LABS: ALKALINE PHOSPHATASE 221 U/L (45-117); TOTAL PROTEIN 6.4 GM/DL (6.4-8.2)
[2017-12-13] MEDS: SODIUM CHLOR 0.9% 1000 ML INJ 1,000 ML IV SCH ×2 (04:56→09:06)
--- NOTE | 2017-12-13 08:48 | HHI.PR ---
Subjective Remarks more oriented this AM Objective Vitals oriented currently heart irreg lung cta abd s/nt ext no edema Vital Signs Date Time Temp Pulse Resp B/P (MAP) Pulse Ox O2 Delivery O2 Flow Rate FiO2 12/13/17 07:55 95 Nasal Cannula 2.00 12/13/17 06:08 86 147/91 12/13/17 06:00 88 12/13/17 05:38 95 Nasal Cannula 2.00 12/13/17 04:00 99.8 84 18 108/56 (73) 100 12/13/17 04:00 84 12/13/17 02:01 86 140/64 12/13/17 02:00 84 12/13/17 00:40 100 Nasal Cannula 2.00 12/13/17 00:00 85 12/13/17 00:00 99.5 85 18 140/65 (90) 100 12/12/17 22:00 84 12/12/17 21:39 83 118/59 12/12/17 20:00 100 Nasal Cannula 2.00 12/12/17 20:00 78 12/12/17 20:00 98.9 82 20 131/62 (85) 100 12/12/17 18:43 83 136/58 12/12/17 18:00 78 12/12/17 16:00 78 12/12/17 16:00 98.6 78 19 123/72 (89) 97 12/12/17 12:00 97.8 81 22 130/66 (87) 100 12/12/17 12:00 81 12/12/17 11:50 100 Nasal Cannula 2.00 12/12/17 10:00 83 Result Diagram: 12/13/17 0329 12/13/17 0329 A/P Problem List: (1) Subarachnoid hemorrhage ICD Codes: I60.9 - Nontraumatic subarachnoid hemorrhage, unspecified Status: Acute Plan: 1. syncope/collapse 2. SAH/basilar skull fx 3. junctional rhythm 4. htn 5. diabetes 6. RA continue telemetry. cardiology following titrate up po lisinipril. titrate off cardene for sbp less [address] brain stable. increase PT/oob lower ivf. increase po intake. cont sz prophylaxis with keppra. (2) Junctional cardiac arrhythmia ICD Codes: I49.8 - Other specified cardiac arrhythmias Status: Acute (3) Skull fracture ICD Codes: S02.91XA - Unspecified fracture of skull, initial encounter for closed fracture Status: Acute (4) Syncope and collapse ICD Codes: R55 - Syncope and collapse Status: Acute (5) HTN (hypertension) ICD Codes: I10 - Essential (primary) hypertension Status: Chronic (6) Rheumatoid arthritis ICD Codes: M06.9 - Rheumatoid arthritis, unspecified Status: Chronic (7) Diabetes ICD Codes: E11.9 - Type 2 diabetes mellitus without complications Status: Chronic Problem Qualifiers (1) Skull fracture: Qualified Codes: S02.119B - Unspecified fracture of occiput, initial encounter for open fracture Yong Lackey MD Dec 13, 2017 08:48
[2017-12-13] MEDS: LISINOPRIL 10 MG TAB PO SCH ×2 (09:05→21:39)
[2017-12-13] MEDS: GLIMEPIRIDE 1 MG TAB PO SCH (09:05)
[2017-12-13] MEDS: DOCUSATE SODIUM 50 MG/SENNA 8.6 MG TAB PO SCH ×2 (09:05→21:39)
[2017-12-13] MEDS: predniSONE 10 MG TAB PO SCH (09:05)
[2017-12-13] MEDS: FAMOTIDINE 20 MG/2 ML VIAL IV PUSH SCH ×2 (09:06→21:40)
[2017-12-13] MEDS: SODIUM CHLORIDE 0.9% FLUSH 10 ML FLUSH IV FLUSH SCH ×2 (09:06→21:40)
[2017-12-13] MEDS: levETIRAcetam INJ 100 ML IV SCH ×2 (09:06→21:39)
--- NOTE | 2017-12-13 09:54 | PD.CARD.PN ---
Subjective Subjective Remarks no overnight events. Tele with PVC, PACs, some atrial runs, NSR with intermittent accelerated junctional rhythm. No pauses or ventricular arrhythmias. Objective Medications Current Medications Medications (Trade) Dose Ordered Sig/Lizeth Route Start Time Stop Time Status Last Admin Nicardipine HCl 25 mg/Sodium Chloride 260 ml @ 52 mls/hr TITRATE PRN IV 12/11/17 17:45 12/13/17 06:08 (Xanax) 0.5 mg Q4H PRN PO 12/11/17 19:45 (Lipitor) 10 mg HS PO 12/11/17 21:00 12/12/17 20:50 (Amaryl) 1 mg DAILY PO 12/12/17 09:00 12/13/17 09:05 (Pamelor) 25 mg HS PO 12/11/17 21:00 12/12/17 20:50 (Deltasone) 10 mg DAILY PO 12/12/17 09:00 12/13/17 09:05 (Requip) 0.5 mg HS PO 12/11/17 21:00 12/12/17 20:50 (NS Flush) 2 ml UNSCH PRN IV FLUSH 12/11/17 19:45 (NS Flush) 2 ml BID IV FLUSH 12/11/17 21:00 12/13/17 09:06 (Tylenol) 650 mg Q6H PRN PO 12/11/17 19:45 (Morphine Inj) 2 mg Q2H PRN IV PUSH 12/11/17 19:45 12/11/17 23:27 (Pepcid Inj) 20 mg Q12HR IV PUSH 12/11/17 21:00 12/13/17 09:06 (Zofran Odt) 4 mg Q6H PRN PO 12/11/17 19:45 12/11/17 21:50 (Restoril) 15 mg HS PRN PO 12/11/17 21:00 (Duoneb Neb) 1 ampule Q2HR NEB PRN INH 12/11/17 19:45 ([facility] [place] Nursing Information) 1 Q361D XX 12/11/17 19:45 12/11/17 19:45 (Chlorhexidine 2% Cloth) 3 pack Taper DAILY@04 TOP 12/12/17 04:00 12/08/18 03:59 12/13/17 04:00 (Chlorhexidine 2% Cloth) 3 pack UNSCH PRN TOP 12/11/17 19:45 (Monique-Colace) 1 tab BID PO 12/11/17 21:00 12/13/17 09:05 (Milk Of Magnesia Liq) 30 ml Q12H PRN PO 12/11/17 19:45 (Senokot) 17.2 mg Q12H PRN PO 12/11/17 19:45 (Dulcolax Supp) 10 mg DAILY PRN RECTAL 12/11/17 19:45 (Lactulose Liq) 30 ml DAILY PRN PO 12/11/17 19:45 Levetriacetam 100 ml @ 400 mls/hr Q12HR IV 12/11/17 22:00 12/13/17 09:06 (D50w (Vial) Inj) 50 ml UNSCH PRN IV PUSH 12/11/17 21:30 (Glucagon Inj) 1 mg UNSCH PRN OTHER 12/11/17 21:30 (Vasotec Inj) 2.5 mg Q6H PRN IV PUSH 12/12/17 10:15 12/12/17 11:18 Sodium Chloride 1,000 ml @ 50 mls/hr Q20H IV 12/13/17 08:45 12/13/17 09:06 (Prinivil) 10 mg Q12HR PO 12/13/17 09:00 12/13/17 09:05 Vital Signs / I&O Vital Signs Date Time Temp Pulse Resp B/P (MAP) Pulse Ox O2 Delivery O2 Flow Rate FiO2 12/13/17 07:55 95 Nasal Cannula 2.00 12/13/17 06:08 86 147/91 12/13/17 06:00 88 12/13/17 05:38 95 Nasal Cannula 2.00 12/13/17 04:00 99.8 84 18 108/56 (73) 100 12/13/17 04:00 84 12/13/17 02:01 86 140/64 12/13/17 02:00 84 12/13/17 00:40 100 Nasal Cannula 2.00 12/13/17 00:00 85 12/13/17 00:00 99.5 85 18 140/65 (90) 100 12/12/17 22:00 84 12/12/17 21:39 83 118/59 12/12/17 20:00 100 Nasal Cannula 2.00 12/12/17 20:00 78 12/12/17 20:00 98.9 82 20 131/62 (85) 100 12/12/17 18:43 83 136/58 12/12/17 18:00 78 12/12/17 16:00 78 12/12/17 16:00 98.6 78 19 123/72 (89) 97 12/12/17 12:00 97.8 81 22 130/66 (87) 100 12/12/17 12:00 81 12/12/17 11:50 100 Nasal Cannula 2.00 12/12/17 10:00 83 I/O 12/12/17 12/12/17 12/12/17 12/13/17 12/13/17 12/13/17 07:00 15:00 23:00 07:00 15:00 23:00 Intake Total 240 ml 1340 ml 1940 ml Output Total 1400 ml 1000 ml 750 ml Balance -1160 ml 340 ml 1190 ml Intake Oral 240 ml 240 ml 240 ml IV Total 1100 ml 1700 ml Output Urine Total 1400 ml 1000 ml 750 ml # Bowel Movements 0 0 Physical Exam GENERAL: Well-developed well-nourished. In no acute distress. NECK: No carotid bruits. No JVD. CARDIOVASCULAR: Regular rate. Irregular rhythm. 2/6 systolic murmur appreciated. RESPIRATORY: No accessory muscle use. Clear to auscultation. Breath sounds equal bilaterally. MUSCULOSKELETAL: No clubbing or cyanosis. No edema. NEUROLOGICAL: Sleepy, but awakens easily and answers questions appropriately. Laboratory Laboratory Tests Test 12/13/17 03:29 White Blood Count 16.7 TH/MM3 Red Blood Count 4.54 MIL/MM3 Hemoglobin 13.6 GM/DL Hematocrit 42.6 % Mean Corpuscular Volume 93.7 FL Mean Corpuscular Hemoglobin 30.0 PG Mean Corpuscular Hemoglobin Concent 32.0 % Red Cell Distribution Width 16.4 % Platelet Count 211 TH/MM3 Mean Platelet Volume 8.0 FL Neutrophils (%) (Auto) 90.7 % Lymphocytes (%) (Auto) 4.0 % Monocytes (%) (Auto) 4.8 % Eosinophils (%) (Auto) 0.1 % Basophils (%) (Auto) 0.4 % Neutrophils # (Auto) 15.2 TH/MM3 Lymphocytes # (Auto) 0.7 TH/MM3 Monocytes # (Auto) 0.8 TH/MM3 Eosinophils # (Auto) 0.0 TH/MM3 Basophils # (Auto) 0.1 TH/MM3 CBC Comment DIFF FINAL Differential Comment Blood Urea Nitrogen 13 MG/DL Creatinine 0.55 MG/DL Random Glucose 104 MG/DL Total Protein 6.4 GM/DL Albumin 2.6 GM/DL Calcium Level 8.1 MG/DL Alkaline Phosphatase 221 U/L Aspartate Amino Transf (AST/SGOT) 24 U/L Alanine Aminotransferase (ALT/SGPT) 37 U/L Total Bilirubin 1.0 MG/DL Sodium Level 147 MEQ/L Potassium Level 3.9 MEQ/L Chloride Level 113 MEQ/L Carbon Dioxide Level 24.9 MEQ/L Anion Gap 9 MEQ/L Estimat Glomerular Filtration Rate 109 ML/MIN Imaging Last Impressions Head CT 12/12/17 0600 Signed Impressions: CONCLUSION: 1. Persistent subarachnoid hemorrhage. 2. Small amount of interventricular hemorrhage. 3. Possible minimal left frontal subdural hemorrhage measuring 3 mm. 4. Compared to the prior exam a significant change is not clearly seen. Abdomen/Pelvis CT 12/12/17 0000 Signed Impressions: CONCLUSION: 1. No abdominal visceral injury. Chest X-Ray 12/11/17 1617 Signed Impressions: CONCLUSION: No evidence of acute airspace disease or significant congestion. Cervical Spine CT 12/11/17 1613 Signed Impressions: CONCLUSION: 1. Right occipital calvarial fracture. 2. Degenerative subluxations and advanced multilevel degenerative changes. Neck CTA 12/11/17 0000 Addendum Impressions: CONCLUSION: 1. No hemodynamically significant stenosis in either carotid artery. 2. Mild narrowing in the left carotid bulb estimated to be 30-40 %. Head CTA 12/11/17 0000 Signed Impressions: CONCLUSION: 1. Right occipital calvarial fracture. 2. No large vessel stenosis or aneurysm. 3. Dominant left vertebral artery. 4. Distal right vertebral artery not seen. Assessment and Plan Assessment and Plan Syncope, possibly due to orthostatic hypotension vs rhythm disturbance with noted accelerated junctional rhythm ? if she had a prolonged pause. Intermittent narrow complex accelerated junctional rhythm on ECG/telemetry, may be intrinsic vs vagally induced s/p ICH. The junctional rhythm would alone would be unlikely to cause her syncope unless she had prolonged pause. Due to the narrow QRS complex and junctional rate, she may benefit from an EP study to determine if permanent pacemaker is required. Continue to monitor on telemetry for any prolonged pauses and if noted, will proceed with pacemaker placement. Will hold off on all studies for now until she is better compensated. 2/6 ANDRESSA on exam, Will follow up on echo ordered but not yet completed. Notify us prior to d/c planning to schedule EPS vs PPM or if she develops any prolonged pauses> 3sec. Martin Blanton DO Dec 13, 2017 09:54
[2017-12-13] MEDS: ACETAMINOPHEN 325 MG TAB PO PRN (11:17)
--- NOTE | 2017-12-13 12:58 | HHI.NSPN ---
History Chief Complaint: Slight headache Interval History Or new problems reported. No complaint of headache today. Out of bed in chair earlier this morning without difficulty Poor oral intake. No nausea or emesis Exam Results Vital Signs Date Time Temp Pulse Resp B/P (MAP) Pulse Ox O2 Delivery O2 Flow Rate FiO2 12/13/17 10:00 85 12/13/17 08:00 98.0 19 131/65 (87) 99 12/13/17 07:55 Nasal Cannula 2.00 Intake and Output 12/13/17 12/13/17 12/14/17 08:00 16:00 00:00 Intake Total 3040 ml 100 ml Output Total 750 ml Balance 2290 ml 100 ml Physical Examination GENERAL: Drowsy and briefly awakens to voice. Affect seems normal. Interacts but does require coaxing. No apparent distress. HEENT: Normocephalic, small occipital scalp laceration. MUSCULOSKELETAL: CAGLE to command w/o difficulty. No evident clubbing or deformity. TTP at the left shoulder joint due to a rotator cuff injury. NEUROLOGICAL: Drowsy, drifts back off to sleep w/o repeated stimulation. Requires coaxing to interact and follow commands. Opens eyes to voice. Pupils 3 mm minimally reactive. Conjugate extraocular movements Oriented to name, being in a hospital. She does not recall the names of friends who are visiting her. CN II through XII tested and intact Reports intact sensation light touch all extremities Motor strength is mostly 4/5 throughout the upper and lower extremities, somewhat difficult to accurately assess due to decreased mental status. Worrell's response bilateral No ankle clonus Plantar responses are neutral Lab, Micro, Other Results Laboratory Tests Test 12/13/17 03:29 White Blood Count 16.7 TH/MM3 Red Blood Count 4.54 MIL/MM3 Hemoglobin 13.6 GM/DL Hematocrit 42.6 % Mean Corpuscular Volume 93.7 FL Mean Corpuscular Hemoglobin 30.0 PG Mean Corpuscular Hemoglobin Concent 32.0 % Red Cell Distribution Width 16.4 % Platelet Count 211 TH/MM3 Mean Platelet Volume 8.0 FL Neutrophils (%) (Auto) 90.7 % Lymphocytes (%) (Auto) 4.0 % Monocytes (%) (Auto) 4.8 % Eosinophils (%) (Auto) 0.1 % Basophils (%) (Auto) 0.4 % Neutrophils # (Auto) 15.2 TH/MM3 Lymphocytes # (Auto) 0.7 TH/MM3 Monocytes # (Auto) 0.8 TH/MM3 Eosinophils # (Auto) 0.0 TH/MM3 Basophils # (Auto) 0.1 TH/MM3 CBC Comment DIFF FINAL Differential Comment Blood Urea Nitrogen 13 MG/DL Creatinine 0.55 MG/DL Random Glucose 104 MG/DL Total Protein 6.4 GM/DL Albumin 2.6 GM/DL Calcium Level 8.1 MG/DL Alkaline Phosphatase 221 U/L Aspartate Amino Transf (AST/SGOT) 24 U/L Alanine Aminotransferase (ALT/SGPT) 37 U/L Total Bilirubin 1.0 MG/DL Sodium Level 147 MEQ/L Potassium Level 3.9 MEQ/L Chloride Level 113 MEQ/L Carbon Dioxide Level 24.9 MEQ/L Anion Gap 9 MEQ/L Estimat Glomerular Filtration Rate 109 ML/MIN Medical Decision Making Impression and Plan Impression: 1. 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 Nondisplaced left occipital skull fracture. Small left frontal subdural hematoma. Primarily left hemisphere subarachnoid hemorrhage and contusion. Stable on most recent CT scan. Neurologic exam stable. Plan: Discussed with the patient in the room. Continue close neurologic checks, supportive care. Seizure prophylaxis Nonchemical DVT prophylaxis Plan follow-up CT scan head 12/15/2017 if otherwise remains neurologically stable. Discussed with nursing staff Nelson Le MD Dec 13, 2017 12:58
[2017-12-13] MEDS: ENALAPRILAT 2.5 MG/2 ML VIAL IV PUSH PRN ×2 (17:29→23:25)
--- NOTE | 2017-12-13 17:39 | ECHRPT ---
Indication: cva/tia CONCLUSIONS The left ventricular systolic function is normal with an estimated ejection fraction in the range of 60-65%. Mild concentric left ventricular hypertrophy. Normal left ventricular size. Normal wall motion. Mild to moderate mitral annular calcification is present. Bpfyr-ev-yylv mitral valve regurgitation. BP: / HR: Rhythm: MEASUREMENTS (Male / Female) Normal Values Technical Quality:Technically difficult study 2D ECHO LV Diastolic Diameter PLAX 4.3 cm 4.2 - 5.9 / 3.9 - 5.3 cm LV Systolic Diameter PLAX 2.9 cm IVS Diastolic Thickness 1.2 cm 0.6 - 1.0 / 0.6 - 0.9 cm LVPW Diastolic Thickness 0.9 cm 0.6 - 1.0 / 0.6 - 0.9 cm LV Relative Wall Thickness 0.5 RV Internal Dim ED PLAX 1.9 cm LVOT Diameter 1.9 cm LA Systolic Diameter LX 3.0 cm 3.0 - 4.0 / 2.7 - 3.8 cm M-MODE Aortic Root Diameter MM 2.4 cm LA Systolic Diameter MM 2.9 cm LA Ao Ratio MM 1.2 AV Cusp Separation MM 1.5 cm DOPPLER AV Peak Velocity 210.5 cm/s AV Peak Gradient 17.7 mmHg AV Mean Gradient 11.0 mmHg AV Velocity Time Integral 37.1 cm LVOT Peak Velocity 166.5 cm/s LVOT Peak Gradient 11.1 mmHg LVOT Velocity Time Integral 37.1 cm AV Area Cont Eq vti 2.8 cm AV Area Cont Eq pk 2.2 cm MV Area PHT 2.2 cm Mitral E Point Velocity 109.0 cm/s Mitral A Point Velocity 127.0 cm/s Mitral E to A Ratio 0.9 LV E' Lateral Velocity 6.3 cm/s Mitral E to LV E' Lateral Ratio 17.2 LV E' Septal Velocity 4.6 cm/s Mitral E to LV E' Septal Ratio 23.8 FINDINGS LEFT VENTRICLE The left ventricular systolic function is normal with an estimated ejection fraction in the range of 60-65%. Mild concentric left ventricular hypertrophy. Normal left ventricular size. Normal wall motion. RIGHT VENTRICLE Normal right ventricular size and systolic function. LEFT ATRIUM The left atrial size is normal. RIGHT ATRIUM The right atrial size is normal. ATRIAL SEPTUM Normal atrial septal thickness without atrial level shunting by limited color doppler interrogation. AORTA The aortic root and proximal ascending aorta are normal in size on limited imaging. MITRAL VALVE Mild to moderate mitral annular calcification is present. Sfyou-di-pyxw mitral valve regurgitation. AORTIC VALVE Trileaflet aortic valve. No aortic valve stenosis or regurgitation. TRICUSPID VALVE Structurally normal tricuspid valve. No tricuspid valve stenosis or regurgitation. PULMONARY VALVE The pulmonary valve is not well visualized. VESSELS The inferior vena cava is normal in size. PERICARDIUM A prominent epicardial fat pad is present. Donavan Otto MD (Electronically Signed) Final Date:13 December 2017 17:38
--- NOTE | 2017-12-13 18:44 | RADRPT ---
EXAM DATE: 12/13/2017 6:19 PM EDT AGE/SEX: 71 years / Female INDICATIONS: Follow up bleed. CLINICAL DATA: This is the patient's subsequent encounter. Patient reports that signs and symptoms h ave been present for 3 days and indicates a pain score of Nonresponsive. MEDICAL/SURGICAL HISTORY: Deep venous thrombosis. Carcinoma, breast. Diabetes. GERD, Lupus, Lung cancer, Left kidney mass, hypertension. Mastectomy, bilateral. RADIATION DOSE: 44.98 CTDI (mGy) [place] [facility] [place]12/2017. . TECHNIQUE: CT of the head without contrast. Using automated exposure control and adjustment of the mA and/or kV according to patient size, radiation dose was kept as low as reasonably achievable to ob tain optimal diagnostic quality images. FINDINGS: Comparison is December 12. Previous bilateral subarachnoid hemorrhage is resolving. There is developing e ncephalomalacia in the left frontal lobe with localized mass effect from edema. Midline shift at the septum pellucidum is stable to slightly decreased. Trace intraventricular hemorrhage still noted. No new intracranial hemorrhage. No acute findings in the posterior fossa. Stable right occipital skull f racture. CONCLUSION: 1. Resolving bilateral subarachnoid hemorrhage. Developing encephalomalacia in the left frontal lobe with mild localized mass effect. No significant change in midline shift of the septum pellucidum. No new hemorrhage. Stable calvarial fracture in the right occipital bone. Electronically signed by: Chuck Flowers MD 12/13/2017 6:42 PM EDT
[2017-12-13] MEDS: ATORVASTATIN 10 MG TAB PO SCH (21:39)
[2017-12-13] MEDS: TEMAZEPAM 15 MG CAP PO PRN (21:40)
[2017-12-13] MEDS: NORTRIPTYLINE HCL 25 MG CAP PO SCH (21:40)
[2017-12-14] VITALS (14 sets, daily range): BP systolic 139–153; BP diastolic 73–90; PULSE 71–121; RESP 16–33; TEMP 97.5–98.6; O2SAT 97–100
[2017-12-14] MEDS: ALPRAZolam 0.5 MG TAB PO PRN (00:38)
[2017-12-14] MEDS: niCARdipine INJ 25 MG in SODIUM CHLOR 0.9% 250 ML INJ 250 ML IV PRN ×2 (01:20→06:47)
[2017-12-14] MEDS: CHLORHEXIDINE GLUCONATE 2 % 1 PACK (2 CLOTHS) TOP SCH (03:48)
[2017-12-14] MEDS: SODIUM CHLOR 0.9% 1000 ML INJ 1,000 ML IV SCH (04:45)
[2017-12-14 05:36] LABS: BICARBONATE 28.1 MEQ/L (21.0-32.0); CALCIUM 9.4 MG/DL (8.5-10.1); CREATININE 0.54 MG/DL (0.50-1.00)
--- NOTE | 2017-12-14 08:39 | PD.CARD.PN ---
Subjective Subjective Remarks patient somnolent. RN reports patient has periods of lucidity throughout yesterday; anxious overnight, given xanax dose, now resting comfortably. SBP and HR elevated 110-120bpm overnight. (Adriana Lou) Objective Medications Current Medications Medications (Trade) Dose Ordered Sig/Lizeth Route Start Time Stop Time Status Last Admin Nicardipine HCl 25 mg/Sodium Chloride 260 ml @ 52 mls/hr TITRATE PRN IV 12/11/17 17:45 12/14/17 06:47 (Xanax) 0.5 mg Q4H PRN PO 12/11/17 19:45 12/14/17 00:38 (Lipitor) 10 mg HS PO 12/11/17 21:00 12/13/17 21:39 (Amaryl) 1 mg DAILY PO 12/12/17 09:00 12/13/17 09:05 (Pamelor) 25 mg HS PO 12/11/17 21:00 12/13/17 21:40 (Deltasone) 10 mg DAILY PO 12/12/17 09:00 12/13/17 09:05 (Requip) 0.5 mg HS PO 12/11/17 21:00 12/13/17 21:40 (NS Flush) 2 ml UNSCH PRN IV FLUSH 12/11/17 19:45 (NS Flush) 2 ml BID IV FLUSH 12/11/17 21:00 12/13/17 21:40 (Tylenol) 650 mg Q6H PRN PO 12/11/17 19:45 12/13/17 11:17 (Morphine Inj) 2 mg Q2H PRN IV PUSH 12/11/17 19:45 12/11/17 23:27 (Pepcid Inj) 20 mg Q12HR IV PUSH 12/11/17 21:00 12/13/17 21:40 (Zofran Odt) 4 mg Q6H PRN PO 12/11/17 19:45 12/11/17 21:50 (Restoril) 15 mg HS PRN PO 12/11/17 21:00 12/13/17 21:40 (Duoneb Neb) 1 ampule Q2HR NEB PRN INH 12/11/17 19:45 ([facility] [place] Nursing Information) 1 Q361D XX 6/14/18 19:45 12/11/17 19:45 (Chlorhexidine 2% Cloth) 3 pack Taper DAILY@04 TOP 12/12/17 04:00 12/08/18 03:59 12/14/17 03:48 (Chlorhexidine 2% Cloth) 3 pack UNSCH PRN TOP 12/11/17 19:45 (Monique-Colace) 1 tab BID PO 12/11/17 21:00 12/13/17 21:39 (Milk Of Magnesia Liq) 30 ml Q12H PRN PO 12/11/17 19:45 (Senokot) 17.2 mg Q12H PRN PO 12/11/17 19:45 (Dulcolax Supp) 10 mg DAILY PRN RECTAL 12/11/17 19:45 (Lactulose Liq) 30 ml DAILY PRN PO 12/11/17 19:45 Levetriacetam 100 ml @ 400 mls/hr Q12HR IV 12/11/17 22:00 12/13/17 21:39 (D50w (Vial) Inj) 50 ml UNSCH PRN IV PUSH 12/11/17 21:30 (Glucagon Inj) 1 mg UNSCH PRN OTHER 12/11/17 21:30 (Vasotec Inj) 2.5 mg Q6H PRN IV PUSH 12/12/17 10:15 12/13/17 23:25 Sodium Chloride 1,000 ml @ 50 mls/hr Q20H IV 12/13/17 08:45 12/13/17 09:06 (Prinivil) 10 mg Q12HR PO 12/13/17 09:00 12/13/17 21:39 Vital Signs / I&O Vital Signs Date Time Temp Pulse Resp B/P (MAP) Pulse Ox O2 Delivery O2 Flow Rate FiO2 12/14/17 08:13 97 Nasal Cannula 2.00 12/14/17 06:47 122 146/69 12/14/17 06:00 111 12/14/17 04:00 97.5 77 20 149/83 (105) 99 12/14/17 01:20 82 191/83 12/14/17 00:00 98.6 78 22 146/90 (108) 97 12/13/17 20:00 98.6 77 21 146/70 (95) 97 12/13/17 19:35 Nasal Cannula 2.00 12/13/17 18:00 85 12/13/17 17:28 97.6 82 28 148/71 (96) 96 12/13/17 16:00 83 12/13/17 14:00 83 12/13/17 12:00 78 12/13/17 12:00 98.0 78 19 142/62 (88) 94 12/13/17 10:00 85 I/O 12/13/17 12/13/17 12/13/17 12/14/17 12/14/17 12/14/17 07:00 15:00 23:00 07:00 15:00 23:00 Intake Total 1940 ml 1200 ml 380 ml 400 ml Output Total 750 ml 1650 ml 1500 ml Balance 1190 ml 1200 ml -1270 ml -1100 ml Intake Oral 240 ml 280 ml 400 ml IV Total 1700 ml 1200 ml 100 ml Output Urine Total 750 ml 1650 ml 1500 ml # Bowel Movements 0 0 0 Physical Exam GENERAL: somnolent SKIN: Warm and dry. HEAD: Atraumatic. Normocephalic. ENT: No nasal bleeding or discharge. NECK: Trachea midline. No JVD. CARDIOVASCULAR: tachycardic, regular rhythm, no murmur RESPIRATORY: No accessory muscle use. Clear to auscultation. Breath sounds equal bilaterally. GASTROINTESTINAL: Abdomen soft, non-tender, nondistended. MUSCULOSKELETAL: Extremities without clubbing, cyanosis, or edema. No obvious deformities. NEUROLOGICAL: Awake and alert. No obvious cranial nerve deficits. Normal speech. PSYCHIATRIC: Appropriate mood and affect; insight and judgment normal. Laboratory Laboratory Tests Test 12/14/17 04:42 Blood Urea Nitrogen 14 MG/DL Creatinine 0.54 MG/DL Random Glucose 99 MG/DL Calcium Level 9.4 MG/DL Sodium Level 146 MEQ/L Potassium Level 3.7 MEQ/L Chloride Level 109 MEQ/L Carbon Dioxide Level 28.1 MEQ/L Anion Gap 9 MEQ/L Estimat Glomerular Filtration Rate 111 ML/MIN Imaging Last [address] 12/13/17 0000 Signed Impressions: CONCLUSION: 1. Resolving bilateral subarachnoid hemorrhage. Developing encephalomalacia in the left frontal lobe with mild localized mass effect. No significant change i n midline shift of the septum pellucidum. No new hemorrhage. Stable calvarial f racture in the right occipital bone. (Adriana Lou) Assessment and Plan Problem List: (1) Subarachnoid hemorrhage ICD Codes: I60.9 - Nontraumatic subarachnoid hemorrhage, unspecified Status: Acute (2) Syncope and collapse ICD Codes: R55 - Syncope and collapse Status: Acute (3) Junctional cardiac arrhythmia ICD Codes: I49.8 - Other specified cardiac arrhythmias Status: Acute (4) HTN (hypertension) ICD Codes: I10 - Essential (primary) hypertension Status: Chronic Assessment and Plan Syncope, possibly due to orthostatic hypotension vs rhythm disturbance with noted accelerated junctional rhythm ? if she had a prolonged pause. Intermittent narrow complex accelerated junctional rhythm on ECG/telemetry, may be intrinsic vs vagally induced s/p ICH. The junctional rhythm would alone would be unlikely to cause her syncope unless she had prolonged pause. Due to the narrow QRS complex and junctional rate, she may benefit from an EP study to determine if permanent pacemaker is required. Continue to monitor on telemetry for any prolonged pauses and if noted, will proceed with pacemaker placement. Will hold off on all studies for now until she is better compensated. telemetry overnight did not show prolonged pauses. elevated HR 100-120bpm, accelerated junctional rhythm with frequent atrial ectopy and PVCs possible reflex tachycardia from cardipene gtt consider r/o P.E. with CT angiogram as d-dimer likely positive with skull fracture and ICH. Notify us prior to d/c planning to schedule EPS vs PPM or if she develops any prolonged pauses> 3sec. (Adriana Lou) Assessment and Plan Tele with Sinus tachycardia with restating of Cardene gtt. ? if needed. Discussed case with Dr Lackey and recommended possible CTA PE protocol to further evaluate possible cause of syncope. Likely will need EPS, will consult Dr Jones. (Martin Blanton DO) Adriana Lou Dec 14, 2017 08:39 Martin Blanton DO Dec 14, 2017 09:29
[2017-12-14] MEDS: predniSONE 10 MG TAB PO SCH (09:00)
[2017-12-14] MEDS: DOCUSATE SODIUM 50 MG/SENNA 8.6 MG TAB PO SCH ×2 (09:00→20:04)
[2017-12-14] MEDS: levETIRAcetam 500 MG TAB PO SCH ×2 (09:00→20:05)
[2017-12-14] MEDS: GLIMEPIRIDE 1 MG TAB PO SCH (09:00)
[2017-12-14] MEDS: LISINOPRIL 10 MG TAB PO SCH ×2 (09:00→20:04)
[2017-12-14] MEDS: SODIUM CHLORIDE 0.9% FLUSH 10 ML FLUSH IV FLUSH SCH ×2 (09:00→20:05)
[2017-12-14] MEDS: FAMOTIDINE 20 MG/2 ML VIAL IV PUSH SCH ×2 (09:00→20:05)
--- NOTE | 2017-12-14 09:01 | HHI.PR ---
Subjective Remarks more lethargic. minimal verbal responses but followed commands. restless overnight and bp spiked requiring cardene. Objective Vitals lethargic follows basic commands heart irreg lung cta abds /nt ext no edema Vital Signs Date Time Temp Pulse Resp B/P (MAP) Pulse Ox O2 Delivery O2 Flow Rate FiO2 12/14/17 08:13 97 Nasal Cannula 2.00 12/14/17 06:47 122 146/69 12/14/17 06:00 111 12/14/17 04:00 97.5 77 20 149/83 (105) 99 12/14/17 01:20 82 191/83 12/14/17 00:00 98.6 78 22 146/90 (108) 97 12/13/17 20:00 98.6 77 21 146/70 (95) 97 12/13/17 19:35 Nasal Cannula 2.00 12/13/17 18:00 85 12/13/17 17:28 97.6 82 28 148/71 (96) 96 12/13/17 16:00 83 12/13/17 14:00 83 12/13/17 12:00 78 12/13/17 12:00 98.0 78 19 142/62 (88) 94 12/13/17 10:00 85 Result Diagram: 12/13/17 0329 12/14/17 0442 A/P Problem List: (1) Subarachnoid hemorrhage ICD Codes: I60.9 - Nontraumatic subarachnoid hemorrhage, unspecified Status: Acute Plan: 1. syncope/collapse 2. SAH/basilar skull fx 3. junctional rhythm 4. htn 5. diabetes 6. RA/chronic steroids continue telemetry. cardiology following. planned EPS or possible PM titrate up po lisinipril. titrate off cardene for sbp less 140. prn clonidine/ vasotec nsg following. repeat ct brain noted for small shift. increase PT/oob gentle ivf and stop if taking adequate po intake. cont sz prophylaxis with keppra. follow bg and use prn ssi. (2) Junctional cardiac arrhythmia ICD Codes: I49.8 - Other specified cardiac arrhythmias Status: Acute (3) Skull fracture ICD Codes: S02.91XA - Unspecified fracture of skull, initial encounter for closed fracture Status: Acute (4) Syncope and collapse ICD Codes: R55 - Syncope and collapse Status: Acute (5) HTN (hypertension) ICD Codes: I10 - Essential (primary) hypertension Status: Chronic (6) Rheumatoid arthritis ICD Codes: M06.9 - Rheumatoid arthritis, unspecified Status: Chronic (7) Diabetes ICD Codes: E11.9 - Type 2 diabetes mellitus without complications Status: Chronic Problem Qualifiers (1) Skull fracture: Qualified Codes: S02.119B - Unspecified fracture of occiput, initial encounter for open fracture Yong Lackey MD Dec 14, 2017 09:01
[2017-12-14 10:40] LABS: BACTERIA, URINE MANY /hpf; BILIRUBIN, URINE NEG (NEG); BLOOD, URINE NEG (NEG); GLUCOSE,URINE NEG (NEG); KETONE, URINE NEG (NEG); MUCUS URINE FEW /lpf (OCC); NITRITE,URINE POS (NEG); URINE COLOR YELLOW (YELLW/STRAW); URINE LEUKOCYTE ESTERASE NEG (NEG)
--- NOTE | 2017-12-14 11:41 | HHI.NSPN ---
(Roberto Laguna) History Chief Complaint: Slight headache (Roberto Laguna) Interval History 12/11: 71 yo fall secondary to probable syncopal episode 12/12: The patient is drowsy when seen this morning. She awakens to voice and briefly participates before drifting back off to sleep. She does have some confusion and it appears that she may have either some receptive aphasia. Sensation intact upon evaluation. Mild left upper extremity weakness due to pain secondary to rotator cuff injury, and normal to the other extremities. She went for a repeat CT brain this morning which was without change. 12/14: Pt awakens but is lethargic. Pupils 3mm bilaterally. She is on Cardene drip. She follows commands. Moves all 4 extremities. NC 2L. (Roberto Laguna) System Review Comments Unable to obtain given clinical condition. (Roberto Laguna) Exam Results Vital Signs Date Time Temp Pulse Resp B/P (MAP) Pulse Ox O2 Delivery O2 Flow Rate FiO2 12/14/17 10:00 121 12/14/17 08:13 97 Nasal Cannula 2.00 12/14/17 08:00 97.9 33 139/75 (96) Intake and Output 12/14/17 12/14/17 12/15/17 08:00 16:00 00:00 Intake Total 400 ml Output Total 1500 ml Balance -1100 ml (Roberto Laguna) Physical Examination GENERAL: Drowsy and briefly awakens to voice. Interacts but does require coaxing. No apparent distress. EYES: Pupils equal. Sclera anicteric. RESP: CTA bilaterally. 2L O2 via NC HEART: Sinus tachycardia. no murmurs. She is on Cardene drip. ABD: Soft positive bs. SKIN: No cyanosis or erythema. MUSCULOSKELETAL: CAGLE to command w/o difficulty. No evident clubbing or deformity. TTP at the left shoulder joint due to a rotator cuff injury. NEUROLOGICAL: Drowsy, drifts back off to sleep w/o repeated stimulation. Requires coaxing to interact and follow commands. Opens eyes to voice. Pupils 3 mm minimally reactive. Not verbalizing much when stimulated, states no to one of my questions but not to person or place. (Roberto Laguna) Lab, Micro, Other Results Last Impressions Head CT 12/13/17 0000 Signed Impressions: CONCLUSION: 1. Resolving bilateral subarachnoid hemorrhage. Developing encephalomalacia in the left frontal lobe with mild localized mass effect. No significant change i n midline shift of the septum pellucidum. No new hemorrhage. Stable calvarial f racture in the right occipital bone. Abdomen/Pelvis CT 12/12/17 0000 Signed Impressions: CONCLUSION: 1. No abdominal visceral injury. Chest X-Ray 12/11/17 161 Signed Impressions: CONCLUSION: No evidence of acute airspace disease or significant congestion. Cervical Spine CT 12/11/17 1613 Signed Impressions: CONCLUSION: 1. Right occipital calvarial fracture. 2. Degenerative subluxations and advanced multilevel degenerative changes. Neck CTA 12/11/17 0000 Addendum Impressions: CONCLUSION: 1. No hemodynamically significant stenosis in either carotid artery. 2. Mild narrowing in the left carotid bulb estimated to be 30-40 %. Head CTA 12/11/17 0000 Signed Impressions: CONCLUSION: 1. Right occipital calvarial fracture. 2. No large vessel stenosis or aneurysm. 3. Dominant left vertebral artery. 4. Distal right vertebral artery not seen. Laboratory Tests Test 12/14/17 04:42 12/14/17 09:30 Blood Urea Nitrogen 14 MG/DL Creatinine 0.54 MG/DL Random Glucose 99 MG/DL Calcium Level 9.4 MG/DL Sodium Level 146 MEQ/L Potassium Level 3.7 MEQ/L Chloride Level 109 MEQ/L Carbon Dioxide Level 28.1 MEQ/L Anion Gap 9 MEQ/L Estimat Glomerular Filtration Rate 111 ML/MIN Urine Color YELLOW Urine Turbidity CLEAR Urine pH 7.0 Urine Specific [place] 1.009 Urine Protein NEG mg/dL Urine Glucose (UA) NEG mg/dL Urine Ketones NEG mg/dL Urine Occult Blood NEG Urine Nitrite POS Urine Bilirubin NEG Urine Urobilinogen 2.0 mg/dL Urine Leukocyte Esterase NEG Urine WBC LESS THAN 1 /hpf Urine Bacteria MANY /hpf Urine Mucus FEW /lpf Microscopic Urinalysis Comment CATH-CULTURE IND (Roberto Laguna) Medical Decision Making Impression and Plan Impression: 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 Plan: Continue to monitor neuro exam Continue with medical care. Urine culture being done by Medicine. Maintain SBP between 120 and 150 mm Hg. Hold pharmacologic DVT prophylaxis. Mechanical DVT prophylaxis. Stress ulcer prophylaxis. (Roberto Laguna) Attending Statement The exam, history, and the medical decision-making described in the above note were completed with the assistance of the mid-level provider. I reviewed and agree with the findings presented. I attest that I had a [id number] encounter with the patient on the same day, and personally performed and documented my assessment and findings in the medical record. (Sagar Cuevas MD) Roberto Laguna Dec 14, 2017 11:41 Sagar Cuevas MD Dec 14, 2017 11:58
[2017-12-14] MEDS: ENALAPRILAT 2.5 MG/2 ML VIAL IV PUSH PRN ×2 (11:42→18:00)
[2017-12-14] MEDS: INSULIN ASPART SUPPLEMENTAL SCALE SQ SCH ×3 (12:00→20:59)
[2017-12-14] MEDS: cloNIDine HCL 0.1 MG TAB PO PRN ×2 (14:59→23:06)
[2017-12-14] MEDS: ATORVASTATIN 10 MG TAB PO SCH (20:05)
[2017-12-14] MEDS: NORTRIPTYLINE HCL 25 MG CAP PO SCH (20:05)
[2017-12-15] VITALS (12 sets, daily range): BP systolic 136–164; BP diastolic 69–88; PULSE 66–121; RESP 17–26; TEMP 97.7–98.7; O2SAT 99–100
[2017-12-15] MEDS: ENALAPRILAT 2.5 MG/2 ML VIAL IV PUSH PRN ×2 (00:39→05:13)
[2017-12-15] MEDS: SODIUM CHLOR 0.9% 1000 ML INJ 1,000 ML IV SCH ×2 (00:45→08:26)
[2017-12-15] MEDS: cloNIDine HCL 0.1 MG TAB PO PRN ×3 (03:07→14:12)
[2017-12-15] MEDS: CHLORHEXIDINE GLUCONATE 2 % 1 PACK (2 CLOTHS) TOP SCH (03:07)
[2017-12-15 07:25] LABS: AUTOMATED NEUTROPHIL # 9.9 TH/MM3 (1.8-7.7); BASOPHIL % 0.2 % (0.0-2.0); EOSINOPHIL % 0.4 % (0.0-4.0); HEMATOCRIT 37.8 % (35.0-46.0); LYMPH % 8.6 % (9.0-44.0); MEAN CELL VOLUME 92.8 FL (80.0-100.0); MEAN CORPUSCULAR HEMOGLOBIN 29.5 PG (27.0-34.0); MEAN CORPUSCULAR HGB CONC 31.7 % (32.0-36.0); MEAN PLATELET VOLUME 8.5 FL (7.0-11.0); MONO % 6.6 % (0.0-8.0); MONOCYTE # 0.8 TH/MM3 (0-0.9); NEUT % 84.2 % (16.0-70.0); PLATELET COUNT 200 TH/MM3 (150-450); RED BLOOD COUNT 4.07 MIL/MM3 (4.00-5.30); RED CELL DISTRIBUTION WIDTH 15.8 % (11.6-17.2); WHITE BLOOD COUNT 11.8 TH/MM3 (4.0-11.0)
[2017-12-15] MEDS: INSULIN ASPART SUPPLEMENTAL SCALE SQ SCH ×4 (08:00→21:00)
--- NOTE | 2017-12-15 08:05 | PD.CARD.PN ---
Subjective Subjective Remarks patient awake and alert and oriented x 3. denies chest pain or sob. HR controlled overnight (Adriana Lou) Objective Medications Current Medications Medications (Trade) Dose Ordered Sig/Lizeth Route Start Time Stop Time Status Last Admin Nicardipine HCl 25 mg/Sodium Chloride 260 ml @ 52 mls/hr TITRATE PRN IV 12/11/17 17:45 12/14/17 06:47 (Xanax) 0.5 mg Q4H PRN PO 12/11/17 19:45 12/14/17 00:38 (Lipitor) 10 mg HS PO 12/11/17 21:00 12/14/17 20:05 (Amaryl) 1 mg DAILY PO 12/12/17 09:00 12/14/17 09:00 (Pamelor) 25 mg HS PO 12/11/17 21:00 12/14/17 20:05 (Deltasone) 10 mg DAILY PO 12/12/17 09:00 12/14/17 09:00 (Requip) 0.5 mg HS PO 12/11/17 21:00 12/14/17 20:05 (NS Flush) 2 ml UNSCH PRN IV FLUSH 12/11/17 19:45 (NS Flush) 2 ml BID IV FLUSH 12/11/17 21:00 12/14/17 20:05 (Tylenol) 650 mg Q6H PRN PO 12/11/17 19:45 12/13/17 11:17 (Morphine Inj) 2 mg Q2H PRN IV PUSH 12/11/17 19:45 12/11/17 23:27 (Pepcid Inj) 20 mg Q12HR IV PUSH 12/11/17 21:00 12/14/17 20:05 (Zofran Odt) 4 mg Q6H PRN PO 12/11/17 19:45 12/11/17 21:50 (Restoril) 15 mg HS PRN PO 12/11/17 21:00 12/13/17 21:40 (Duoneb Neb) 1 ampule Q2HR NEB PRN INH 12/11/17 19:45 ([facility] Information) 1 Q361D XX 12/11/17 19:45 12/11/17 19:45 (Chlorhexidine 2% Cloth) 3 pack Taper DAILY@04 TOP 12/12/17 04:00 12/08/18 03:59 12/15/17 03:07 (Chlorhexidine 2% Cloth) 3 pack UNSCH PRN TOP 12/11/17 19:45 (Monique-Colace) 1 tab BID PO 12/11/17 21:00 12/14/17 20:04 (Milk Of Magnesia Liq) 30 ml Q12H PRN PO 12/11/17 19:45 (Senokot) 17.2 mg Q12H PRN PO 12/11/17 19:45 (Dulcolax Supp) 10 mg DAILY PRN RECTAL 12/11/17 19:45 (Lactulose Liq) 30 ml DAILY PRN PO 12/11/17 19:45 (D50w (Vial) Inj) 50 ml UNSCH PRN IV PUSH 12/11/17 21:30 (Glucagon Inj) 1 mg UNSCH PRN OTHER 12/11/17 21:30 (Vasotec Inj) 2.5 mg Q6H PRN IV PUSH 12/12/17 10:15 12/15/17 05:13 Sodium Chloride 1,000 ml @ 50 mls/hr Q20H IV 12/13/17 08:45 12/15/17 00:45 (Prinivil) 10 mg Q12HR PO 12/13/17 09:00 12/14/17 20:04 (Catapres) 0.1 mg Q4H PRN PO 12/14/17 09:00 12/15/17 03:07 (Keppra) 500 mg Q12HR PO 12/14/17 09:00 12/14/17 20:05 (NovoLOG SUPPLEMENTAL SCALE) 1 ACHS SLIDING SCALE SQ 12/14/17 12:00 12/14/17 20:59 Vital Signs / I&O Vital Signs Date Time Temp Pulse Resp B/P (MAP) Pulse Ox O2 Delivery O2 Flow Rate FiO2 12/15/17 04:00 98.6 76 20 162/76 (104) 100 12/15/17 00:00 98.0 76 19 164/88 (113) 100 12/14/17 20:00 98.4 73 17 153/77 (102) 100 12/14/17 19:12 Nasal Cannula 2.00 12/14/17 19:10 100 Nasal Cannula 2.00 12/14/17 18:01 86 6/17/18 16:20 97.9 93 19 148/78 (101) 100 12/14/17 16:00 75 12/14/17 14:00 71 12/14/17 12:08 97.7 75 16 145/73 (97) 97 12/14/17 12:00 75 12/14/17 10:00 121 12/14/17 08:13 97 Nasal Cannula 2.00 I/O 12/14/17 12/14/17 12/14/17 12/15/17 12/15/17 12/15/17 07:00 15:00 23:00 07:00 15:00 23:00 Intake Total 400 ml 360 ml 1000 ml Output Total 1500 ml 1300 ml 1000 ml Balance -1100 ml -940 ml 0 ml Intake Oral 400 ml 360 ml IV Total 1000 ml Output Urine Total 1500 ml 1300 ml 1000 ml # Bowel Movements 0 0 0 Physical Exam GENERAL: somnolent SKIN: Warm and dry. HEAD: Atraumatic. Normocephalic. ENT: No nasal bleeding or discharge. NECK: Trachea midline. No JVD. CARDIOVASCULAR: regular rate and rhythm, frequent atopic beats, no murmur RESPIRATORY: No accessory muscle use. Clear to auscultation. Breath sounds equal bilaterally. GASTROINTESTINAL: Abdomen soft, non-tender, nondistended. MUSCULOSKELETAL: Extremities without clubbing, cyanosis, or edema. No obvious deformities. NEUROLOGICAL: Awake and alert. No obvious cranial nerve deficits. Normal speech. PSYCHIATRIC: Appropriate mood and affect; insight and judgment normal. Laboratory Laboratory Tests Test 12/14/17 09:30 12/15/17 05:35 Urine Color YELLOW Urine Turbidity CLEAR Urine pH 7.0 Urine Specific [place] 1.009 Urine Protein NEG mg/dL Urine Glucose (UA) NEG mg/dL Urine Ketones NEG mg/dL Urine Occult Blood NEG Urine Nitrite POS Urine Bilirubin NEG Urine Urobilinogen 2.0 mg/dL Urine Leukocyte Esterase NEG Urine WBC LESS THAN 1 /hpf Urine Bacteria MANY /hpf Urine Mucus FEW /lpf Microscopic Urinalysis Comment CATH-CULTURE IND White Blood Count 11.8 TH/MM3 Red Blood Count 4.07 MIL/MM3 Hemoglobin 12.0 GM/DL Hematocrit 37.8 % Mean Corpuscular Volume 92.8 FL Mean Corpuscular Hemoglobin 29.5 PG Mean Corpuscular Hemoglobin Concent 31.7 % Red Cell Distribution Width 15.8 % Platelet Count 200 TH/MM3 Mean Platelet Volume 8.5 FL Neutrophils (%) (Auto) 84.2 % Lymphocytes (%) (Auto) 8.6 % Monocytes (%) (Auto) 6.6 % Eosinophils (%) (Auto) 0.4 % Basophils (%) (Auto) 0.2 % Neutrophils # (Auto) 9.9 TH/MM3 Lymphocytes # (Auto) 1.0 TH/MM3 Monocytes # (Auto) 0.8 TH/MM3 Eosinophils # (Auto) 0.0 TH/MM3 Basophils # (Auto) 0.0 TH/MM3 CBC Comment DIFF FINAL Differential Comment (Adriana Lou) Assessment and Plan Problem List: (1) Subarachnoid hemorrhage ICD Codes: I60.9 - Nontraumatic subarachnoid hemorrhage, unspecified Status: Acute (2) Syncope and collapse ICD Codes: R55 - Syncope and collapse Status: Acute (3) Junctional cardiac arrhythmia ICD Codes: I49.8 - Other specified cardiac arrhythmias Status: Acute (4) HTN (hypertension) ICD Codes: I10 - Essential (primary) hypertension Status: Chronic Assessment and Plan Syncope, possibly due to orthostatic hypotension vs rhythm disturbance with noted accelerated junctional rhythm ? if she had a prolonged pause. Intermittent narrow complex accelerated junctional rhythm on ECG/telemetry, may be intrinsic vs vagally induced s/p ICH. The junctional rhythm would alone would be unlikely to cause her syncope unless she had prolonged pause. Due to the narrow QRS complex and junctional rate, she may benefit from an EP study to determine if permanent pacemaker is indicated. Will hold off on all studies for now until she is better compensated. consider r/o P.E. with CT angiogram as d-dimer likely positive with skull fracture and ICH. HR stable overnight. RN reports BP is managed when utilizing all lisinopril and all PRNs (vasotec, clonidine, cardipene) telemetry shows bigeminy overnight; no prolonged pauses. refer to EP, Dr. Jones for consideration of EPS vs. PPM. (Adriana Lou) Assessment and Plan Patient seen and examined. Agree with above. HTN uncontrolled. Start lisinopril 20mg daily. Continue amlodipine and prns Dr Jones to see for evaluation of EPS vs PPM. (Martin Blanton DO) Adriana Lou Dec 15, 2017 08:05 Martin Blanton DO Dec 16, 2017 08:30
[2017-12-15] MEDS: SODIUM CHLORIDE 0.9% FLUSH 10 ML FLUSH IV FLUSH SCH ×2 (08:24→21:00)
[2017-12-15] MEDS: DOCUSATE SODIUM 50 MG/SENNA 8.6 MG TAB PO SCH ×2 (08:25→22:03)
[2017-12-15] MEDS: predniSONE 10 MG TAB PO SCH (08:25)
[2017-12-15] MEDS: FAMOTIDINE 20 MG/2 ML VIAL IV PUSH SCH (08:25)
[2017-12-15] MEDS: levETIRAcetam 500 MG TAB PO SCH ×2 (08:25→22:04)
[2017-12-15] MEDS: LISINOPRIL 10 MG TAB PO SCH ×2 (08:25→22:04)
[2017-12-15] MEDS: GLIMEPIRIDE 1 MG TAB PO SCH (09:00)
--- NOTE | 2017-12-15 10:16 | HHI.NSPN ---
(Barry Macdonald) History Chief Complaint: Headache and dizziness when she got up earlier. (Barry Macdonald) Interval History 12/11: 71 yo fall secondary to probable syncopal episode 12/12: The patient is drowsy when seen this morning. She awakens to voice and briefly participates before drifting back off to sleep. She does have some confusion and it appears that she may have either some receptive aphasia. Sensation intact upon evaluation. Mild left upper extremity weakness due to pain secondary to rotator cuff injury, and normal to the other extremities. She went for a repeat CT brain this morning which was without change. 12/13: Or new problems reported. No complaint of headache today. Out of bed in chair earlier this morning without difficulty Poor oral intake. No nausea or emesis 12/14: Pt awakens but is lethargic. Pupils 3mm bilaterally. She is on Cardene drip. She follows commands. Moves all 4 extremities. NC 2L. 12/15: The patient is awake and visiting with her family when seen. She reports that she developed a headache and dizziness when she got up earlier. Nursing reports that the patient is weak. She denied any pain, numbness or tingling to the extremities. Her confusion is improved upon evaluation. She continues to have weakness to the left upper extremity due to her rotator cuff injury. She also is weaker to both quadriceps upon testing. She is not on the nicardipine drip when seen although her systolic blood pressure was elevated. Also her heart rate was elevated. Nursing does report that Cardiology plans to do further testing mid week. (Barry Macdonald) Exam Results 12/13/17 12/13/17 12/14/17 12/14/17 12/15/17 12/15/17 06:00 18:00 06:00 18:00 06:00 18:00 Intake Total 240 ml 3180 ml 500 ml 1360 ml Output Total 750 ml 1650 ml 1500 ml 2300 ml Balance -510 ml 1530 ml -1000 ml -940 ml Intake Oral 240 ml 280 ml 400 ml 360 ml IV Total 2900 ml 100 ml 1000 ml Output Urine Total 750 ml 1650 ml 1500 ml 2300 ml # Bowel Movements 0 0 0 0 Vital Signs Date Time Temp Pulse Resp B/P (MAP) Pulse Ox O2 Delivery O2 Flow Rate FiO2 12/15/17 07:00 99 Nasal Cannula 2.00 12/15/17 04:00 98.6 76 20 162/76 (104) 100 12/15/17 00:00 98.0 76 19 164/88 (113) 100 12/14/17 20:00 98.4 73 17 153/77 (102) 100 12/14/17 19:12 Nasal Cannula 2.00 12/14/17 19:10 100 Nasal Cannula 2.00 12/14/17 18:01 86 12/14/17 16:20 97.9 93 19 148/78 (101) 100 12/14/17 16:00 75 12/14/17 14:00 71 12/14/17 12:08 97.7 75 16 145/73 (97) 97 12/14/17 12:00 75 12/14/17 10:00 121 12/14/17 08:13 97 Nasal Cannula 2.00 12/14/17 08:00 97.9 121 33 139/75 (96) 97 12/14/17 08:00 121 12/14/17 07:00 100 Nasal Cannula 2.00 12/14/17 06:47 122 146/69 12/14/17 06:00 111 12/14/17 04:00 97.5 77 20 149/83 (105) 99 12/14/17 01:20 82 191/83 12/14/17 00:00 98.6 78 22 146/90 (108) 97 12/13/17 20:00 98.6 77 21 146/70 (95) 97 12/13/17 19:35 Nasal Cannula 2.00 12/13/17 18:00 85 12/13/17 17:28 97.6 82 28 148/71 (96) 96 12/13/17 16:00 83 12/13/17 14:00 83 12/13/17 12:00 78 12/13/17 12:00 98.0 78 19 142/62 (88) 94 12/13/17 10:00 85 12/13/17 08:00 98.0 85 19 131/65 (87) 99 12/13/17 08:00 85 12/13/17 07:55 95 Nasal Cannula 2.00 12/13/17 07:00 100 Nasal Cannula 2.00 12/13/17 07:00 85 133/80 12/13/17 06:08 86 147/91 12/13/17 06:00 88 12/13/17 05:38 95 Nasal Cannula 2.00 12/13/17 04:00 99.8 84 18 108/56 (73) 100 12/13/17 04:00 84 12/13/17 02:01 86 140/64 12/13/17 02:00 84 12/13/17 00:40 100 Nasal Cannula 2.00 12/13/17 00:00 85 12/13/17 00:00 99.5 85 18 140/65 (90) 100 12/12/17 22:00 84 12/12/17 21:39 83 118/59 12/12/17 20:00 100 Nasal Cannula 2.00 12/12/17 20:00 78 12/12/17 20:00 98.9 82 20 131/62 (85) 100 12/12/17 18:43 83 136/58 12/12/17 18:00 78 12/12/17 16:00 78 12/12/17 16:00 98.6 78 19 123/72 (89) 97 12/12/17 12:00 97.8 81 22 130/66 (87) 100 12/12/17 12:00 81 12/12/17 11:50 100 Nasal Cannula 2.00 (Barry Macdonald) Physical Examination GENERAL: Awake & alert in bed visiting w/her family. Affect normal & readily interacts. No apparent distress. SBP & HR elevated. HEENT: Normocephalic, atraumatic. PERRLA 2 mm, EOMI. MMM & pink, tongue midline to protrusion. MUSCULOSKELETAL: CAGLE to command w/o difficulty. No evident clubbing or deformity. TTP at the left shoulder joint due to a rotator cuff injury. NEUROLOGICAL: AAOx3. Speech clear & appropriate. Follows simple commands w/o difficulty. CN II through XII appear grossly intact. Sensation intact to light touch. Motor strength: LUE is 4+ to 5/5 to biceps & triceps, 4/5 to hand grasp, and deltoid not tested due to rotator cuff injury. RUE is 5/5 to all major flexion & extension muscle groups. LLE is 4/5 to quadriceps otherwise it is 5/5 to all major flexion & extension muscle groups. RLE is 4/5 to quadriceps otherwise it is 5/5 to all major flexion & extension muscle groups. (Barry Macdonald) Lab, Micro, Other Results Recent Impressions Head CT 12/13/17 0000 Signed Impressions: CONCLUSION: 1. Resolving bilateral subarachnoid hemorrhage. Developing encephalomalacia in the left frontal lobe with mild localized mass effect. No significant change i n midline shift of the septum pellucidum. No new hemorrhage. Stable calvarial f racture in the right occipital bone. Laboratory Tests Test 12/13/17 03:29 12/14/17 04:42 12/14/17 09:30 12/15/17 05:35 White Blood Count 16.7 TH/MM3 11.8 TH/MM3 Red Blood Count 4.54 MIL/MM3 4.07 MIL/MM3 Hemoglobin 13.6 GM/DL 12.0 GM/DL Hematocrit 42.6 % 37.8 % Mean Corpuscular Volume 93.7 FL 92.8 FL Mean Corpuscular Hemoglobin 30.0 PG 29.5 PG Mean Corpuscular Hemoglobin Concent 32.0 % 31.7 % Red Cell Distribution Width 16.4 % 15.8 % Platelet Count 211 TH/MM3 200 TH/MM3 Mean Platelet Volume 8.0 FL 8.5 FL Neutrophils (%) (Auto) 90.7 % 84.2 % Lymphocytes (%) (Auto) 4.0 % 8.6 % Monocytes (%) (Auto) 4.8 % 6.6 % Eosinophils (%) (Auto) 0.1 % 0.4 % Basophils (%) (Auto) 0.4 % 0.2 % Neutrophils # (Auto) 15.2 TH/MM3 9.9 TH/MM3 Lymphocytes # (Auto) 0.7 TH/MM3 1.0 TH/MM3 Monocytes # (Auto) 0.8 TH/MM3 0.8 TH/MM3 Eosinophils # (Auto) 0.0 TH/MM3 0.0 TH/MM3 Basophils # (Auto) 0.1 TH/MM3 0.0 TH/MM3 CBC Comment DIFF FINAL DIFF FINAL Differential Comment Blood Urea Nitrogen 13 MG/DL 14 MG/DL Creatinine 0.55 MG/DL 0.54 MG/DL Random Glucose 104 MG/DL 99 MG/DL Total Protein 6.4 GM/DL Albumin 2.6 GM/DL Calcium Level 8.1 MG/DL 9.4 MG/DL Alkaline Phosphatase 221 U/L Aspartate Amino Transf (AST/SGOT) 24 U/L Alanine Aminotransferase (ALT/SGPT) 37 U/L Total Bilirubin 1.0 MG/DL Sodium Level 147 MEQ/L 146 MEQ/L Potassium Level 3.9 MEQ/L 3.7 MEQ/L Chloride Level 113 MEQ/L 109 MEQ/L Carbon Dioxide Level 24.9 MEQ/L 28.1 MEQ/L Anion Gap 9 MEQ/L 9 MEQ/L Estimat Glomerular Filtration Rate 109 ML/MIN 111 ML/MIN Urine Color YELLOW Urine Turbidity CLEAR Urine pH 7.0 Urine Specific [place] 1.009 Urine Protein NEG mg/dL Urine Glucose (UA) NEG mg/dL Urine Ketones NEG mg/dL Urine Occult Blood NEG Urine Nitrite POS Urine Bilirubin NEG Urine Urobilinogen 2.0 mg/dL Urine Leukocyte Esterase NEG Urine WBC LESS THAN 1 /hpf Urine Bacteria MANY /hpf Urine Mucus FEW /lpf Microscopic Urinalysis Comment CATH-CULTURE IND (Barry Macdonald) Medical Decision Making Impression and Plan Impression: TBI - probable fall secondary to syncopal episode Occipital skull fracture Patient is doing well. Headache & dizziness when she gets up. Oriented to person , place & time. Cranial Nerves appear intact. No sensory deficits to extremities. Mild weakness to LUE secondary to pain due to rotator cuff injury, also w/bilateral quadricep weakness. Elevated HR & SBP when seen. Past 24 hrs: Afebrile. Tachycardia yesterday morning. SBP intermittently above desired range. Reviewed labs for today. Improvement in leukocytosis. CT brain demonstrated resolving bilateral SAH w/developing encephalomalacia to the left frontal lobe w/mild mass effect; there is no significant change in the septum pellucidum midline shift; no new haemorrhage; stable calvarial fracture to the right occipital bone. Plan: Primary & critical care management per [employer] [place] [employer]. Stat CT for any decline in neuro status. Seizure prophylaxis. Monitor serum sodium. Maintain SBP between 120 and 150 mm Hg. Hold pharmacologic DVT prophylaxis. Mechanical DVT prophylaxis. Stress ulcer prophylaxis. (Barry Macdonald) Attending Statement The exam, history, and the medical decision-making described in the above note were completed with the assistance of the mid-level provider. I reviewed and agree with the findings presented. I attest that I had a [id number] encounter with the patient on the same day, and personally performed and documented my assessment and findings in the medical record. On exam 12/15/2017, patient is moderately lethargic, arouses readily to voice. Episodes of increased lethargy reported. No seizure activity reported. Discussed with family Check follow-up CT scan head (Nelson Le MD) Barry Macdonald Dec 15, 2017 10:16 Nelson Le MD Dec 17, 2017 21:09
--- NOTE | 2017-12-15 18:03 | HHI.PR ---
Subjective Remarks No new complaints. Objective Vitals Vital Signs Date Time Temp Pulse Resp B/P (MAP) Pulse Ox O2 Delivery O2 Flow Rate FiO2 12/15/17 14:00 71 12/15/17 12:00 68 12/15/17 12:00 98.1 68 17 151/82 (105) 100 12/15/17 10:00 117 12/15/17 08:00 121 12/15/17 08:00 97.7 121 25 150/82 (104) 100 12/15/17 07:00 99 Nasal Cannula 2.00 12/15/17 04:00 98.6 76 20 162/76 (104) 100 12/15/17 00:00 98.0 76 19 164/88 (113) 100 12/14/17 20:00 98.4 73 17 153/77 (102) 100 12/14/17 19:12 Nasal Cannula 2.00 12/14/17 19:10 100 Nasal Cannula 2.00 Result Diagram: 12/15/17 0535 12/14/17 0442 Objective Remarks GENERAL: This is a well-nourished, well-developed patient, in no apparent distress. CARDIOVASCULAR: Regular rate and rhythm without murmurs, gallops, or rubs. RESPIRATORY: Clear to auscultation. Breath sounds equal bilaterally. No wheezes , rales, or rhonchi. GASTROINTESTINAL: Abdomen soft, non-tender, nondistended. Normal active bowel sounds MUSCULOSKELETAL: Extremities without clubbing, cyanosis, or edema. NEURO: Alert & Oriented x4 to person, place, time, situation. Moves all ext x4 A/P Problem List: (1) Subarachnoid hemorrhage ICD Codes: I60.9 - Nontraumatic subarachnoid hemorrhage, unspecified Status: Acute Plan: 1. syncope/collapse 2. SAH/basilar skull fx 3. junctional rhythm 4. htn 5. diabetes 6. RA/chronic steroids - Consult placed for Dr. Jones, possible EP study - lisinopril. Start norvasc - neurosurgery following for small shift on CT brain - PT - keppra - SSI (2) Junctional cardiac arrhythmia ICD Codes: I49.8 - Other specified cardiac arrhythmias Status: Acute (3) Skull fracture ICD Codes: S02.91XA - Unspecified fracture of skull, initial encounter for closed fracture Status: Acute (4) Syncope and collapse ICD Codes: R55 - Syncope and collapse Status: Acute (5) HTN (hypertension) ICD Codes: I10 - Essential (primary) hypertension Status: Chronic (6) Rheumatoid arthritis ICD Codes: M06.9 - Rheumatoid arthritis, unspecified Status: Chronic (7) Diabetes ICD Codes: E11.9 - Type 2 diabetes mellitus without complications Status: Chronic Problem Qualifiers (1) Skull fracture: Qualified Codes: S02.119B - Unspecified fracture of occiput, initial encounter for open fracture Dany Licea DO Dec 15, 2017 18:03
[2017-12-15] MEDS: amLODIPine BESYLATE 5 MG TAB PO SCH (20:47)
[2017-12-15] MEDS: ATORVASTATIN 10 MG TAB PO SCH (22:03)
[2017-12-15] MEDS: FAMOTIDINE 20 MG TAB PO SCH (22:04)
[2017-12-15] MEDS: ALPRAZolam 0.5 MG TAB PO PRN (22:04)
[2017-12-15] MEDS: NORTRIPTYLINE HCL 25 MG CAP PO SCH (22:12)
[2017-12-16] VITALS (14 sets, daily range): BP systolic 171–198; BP diastolic 83–100; PULSE 68–114; RESP 16–23; TEMP 97.8–98.9; O2SAT 94–100
[2017-12-16] MEDS: cloNIDine HCL 0.1 MG TAB PO PRN ×2 (00:19→20:13)
[2017-12-16] MEDS: TEMAZEPAM 15 MG CAP PO PRN (00:19)
[2017-12-16] MEDS: ENALAPRILAT 2.5 MG/2 ML VIAL IV PUSH PRN ×2 (04:17→20:13)
[2017-12-16] MEDS: CHLORHEXIDINE GLUCONATE 2 % 1 PACK (2 CLOTHS) TOP SCH (04:21)
[2017-12-16] MEDS: INSULIN ASPART SUPPLEMENTAL SCALE SQ SCH ×4 (08:00→20:48)
[2017-12-16] MEDS: FAMOTIDINE 20 MG TAB PO SCH ×2 (08:11→20:13)
[2017-12-16] MEDS: levETIRAcetam 500 MG TAB PO SCH ×2 (08:11→20:12)
[2017-12-16] MEDS: GLIMEPIRIDE 1 MG TAB PO SCH (08:11)
[2017-12-16] MEDS: predniSONE 10 MG TAB PO SCH (08:11)
[2017-12-16] MEDS: LISINOPRIL 10 MG TAB PO SCH ×2 (08:11→20:13)
[2017-12-16] MEDS: amLODIPine BESYLATE 5 MG TAB PO SCH (08:11)
--- NOTE | 2017-12-16 08:22 | PD.CARD.PN ---
Subjective Subjective Remarks patient somnolent, SBP elevated overnight, telemetry shows occasional bigeminy and NSVT (Adriana Lou) Objective Medications Current Medications Medications (Trade) Dose Ordered Sig/Lizeth Route Start Time Stop Time Status Last Admin Nicardipine HCl 25 mg/Sodium Chloride 260 ml @ 52 mls/hr TITRATE PRN IV 12/11/17 17:45 12/14/17 06:47 (Xanax) 0.5 mg Q4H PRN PO 12/11/17 19:45 12/15/17 22:04 (Lipitor) 10 mg HS PO 12/11/17 21:00 12/15/17 22:03 (Amaryl) 1 mg DAILY PO 12/12/17 09:00 12/16/17 08:11 (Pamelor) 25 mg HS PO 12/11/17 21:00 12/15/17 22:12 (Deltasone) 10 mg DAILY PO 12/12/17 09:00 12/16/17 08:11 (Requip) 0.5 mg HS PO 12/11/17 21:00 12/15/17 22:12 (NS Flush) 2 ml UNSCH PRN IV FLUSH 12/11/17 19:45 (NS Flush) 2 ml BID IV FLUSH 12/11/17 21:00 12/15/17 21:00 (Tylenol) 650 mg Q6H PRN PO 12/11/17 19:45 12/13/17 11:17 (Morphine Inj) 2 mg Q2H PRN IV PUSH 12/11/17 19:45 12/11/17 23:27 (Zofran Odt) 4 mg Q6H PRN PO 12/11/17 19:45 12/11/17 21:50 (Restoril) 15 mg HS PRN PO 12/11/17 21:00 12/16/17 00:19 (Duoneb Neb) 1 ampule Q2HR NEB PRN INH 12/11/17 19:45 ([facility] [place] [facility] Information) 1 Q361D XX 12/11/17 19:45 12/11/17 19:45 (Chlorhexidine 2% Cloth) 3 pack Taper DAILY@04 TOP 12/12/17 04:00 12/08/18 03:59 12/16/17 04:21 (Chlorhexidine 2% Cloth) 3 pack UNSCH PRN TOP 12/11/17 19:45 (Monique-Colace) 1 tab BID PO 12/11/17 21:00 12/15/17 22:03 (Milk Of Magnesia Liq) 30 ml Q12H PRN PO 12/11/17 19:45 (Senokot) 17.2 mg Q12H PRN PO 12/11/17 19:45 (Dulcolax Supp) 10 mg DAILY PRN RECTAL 12/11/17 19:45 (Lactulose Liq) 30 ml DAILY PRN PO 12/11/17 19:45 (D50w (Vial) Inj) 50 ml UNSCH PRN IV PUSH 12/11/17 21:30 (Glucagon Inj) 1 mg UNSCH PRN OTHER 12/11/17 21:30 (Vasotec Inj) 2.5 mg Q6H PRN IV PUSH 12/12/17 10:15 12/16/17 04:17 Sodium Chloride 1,000 ml @ 50 mls/hr Q20H IV 12/13/17 08:45 12/15/17 08:26 (Prinivil) 10 mg Q12HR PO 12/13/17 09:00 12/16/17 08:11 (Catapres) 0.1 mg Q4H PRN PO 12/14/17 09:00 12/16/17 00:19 (Keppra) 500 mg Q12HR PO 12/14/17 09:00 12/16/17 08:11 (NovoLOG SUPPLEMENTAL SCALE) 1 ACHS SLIDING SCALE SQ 12/14/17 12:00 12/14/17 20:59 (Pepcid) 20 mg BID PO 12/15/17 21:00 12/16/17 08:11 (Norvasc) 5 mg DAILY PO 12/15/17 19:00 12/16/17 08:11 Vital Signs / I&O Vital Signs Date Time Temp Pulse Resp B/P (MAP) Pulse Ox O2 Delivery O2 Flow Rate FiO2 12/16/17 08:16 97 21 12/16/17 06:00 73 12/16/17 04:02 98 Nasal Cannula 2.00 12/16/17 04:00 72 12/16/17 04:00 98.7 72 20 174/83 (113) 94 12/16/17 02:00 70 12/16/17 00:00 98.9 73 23 172/87 (115) 100 12/16/17 00:00 73 12/15/17 23:05 99 Nasal Cannula 2.00 12/15/17 22:00 73 12/15/17 20:00 98.7 72 26 153/73 (99) 100 12/15/17 20:00 68 12/15/17 18:00 68 12/15/17 16:00 66 12/15/17 16:00 98.1 66 18 136/69 (91) 100 12/15/17 14:00 71 12/15/17 12:00 68 12/15/17 12:00 98.1 68 17 151/82 (105) 100 12/15/17 10:00 117 I/O 12/15/17 12/15/17 12/15/17 12/16/17 12/16/17 12/16/17 07:00 15:00 23:00 07:00 15:00 23:00 Intake Total 1000 ml 720 ml 600 ml Output Total 1000 ml 1000 ml 650 ml Balance 0 ml -280 ml -50 ml Intake Oral 720 ml IV Total 1000 ml 600 ml Output Urine Total 1000 ml 1000 ml 650 ml # Bowel Movements 0 0 Physical Exam GENERAL: somnolent SKIN: Warm and dry. HEAD: Atraumatic. Normocephalic. ENT: No nasal bleeding or discharge. NECK: Trachea midline. No JVD. CARDIOVASCULAR: regular rate and rhythm, frequent atopic beats, no murmur RESPIRATORY: No accessory muscle use. Clear to auscultation. Breath sounds equal bilaterally. GASTROINTESTINAL: Abdomen soft, non-tender, nondistended. MUSCULOSKELETAL: Extremities without clubbing, cyanosis, or edema. No obvious deformities. NEUROLOGICAL: somnolent No obvious cranial nerve deficits. Normal speech. PSYCHIATRIC: Appropriate mood and affect; insight and judgment normal. (Adriana Lou) Assessment and Plan Problem List: (1) Subarachnoid hemorrhage ICD Codes: I60.9 - Nontraumatic subarachnoid hemorrhage, unspecified Status: Acute (2) Syncope and collapse ICD Codes: R55 - Syncope and collapse Status: Acute (3) Junctional cardiac arrhythmia ICD Codes: I49.8 - Other specified cardiac arrhythmias Status: Acute (4) HTN (hypertension) ICD Codes: I10 - Essential (primary) hypertension Status: Chronic Assessment and Plan Syncope, possibly due to orthostatic hypotension vs rhythm disturbance with noted accelerated junctional rhythm ? if she had a prolonged pause. Intermittent narrow complex accelerated junctional rhythm on ECG/telemetry, may be intrinsic vs vagally induced s/p ICH. The junctional rhythm would alone would be unlikely to cause her syncope unless she had prolonged pause. Due to the narrow QRS complex and junctional rate, she may benefit from an EP study to determine if permanent pacemaker is indicated. Will hold off on all studies for now until she is better compensated. consider r/o P.E. with CT angiogram as d-dimer likely positive with skull fracture and ICH. HR stable overnight. amlodipine 5mg added for elevated SBP; one dose given so far. telemetry shows bigeminy and occ PVC refer to EP, Dr. Jones for consideration of EPS vs. PPM. (Adriana Lou) Assessment and Plan Clarification: telemetry did not show NSVT, it showed nonsustained atrial tachycardia. BP support with lisinopril and amlodipine and prns Dr Jones to see for possible EPS to evaluate for need for PPM. (Martin Blanton DO) Adriana Lou Dec 16, 2017 08:22 Martin Blanton DO Dec 16, 2017 12:14
[2017-12-16] MEDS: DOCUSATE SODIUM 50 MG/SENNA 8.6 MG TAB PO SCH ×2 (08:25→20:13)
--- NOTE | 2017-12-16 08:31 | MB ---
cc: Romana Jones MD DATE: 12/15/2017 REASON FOR CONSULTATION: Episode of tachybrady syndrome, complete AV dissociation and junctional rhythm. HISTORY OF PRESENT ILLNESS: Mrs. John is a 71-year-old female with history of high blood pressure, hyperlipidemia, lung and breast cancer, diabetes mellitus, lupus, rheumatoid arthritis, admitted to the emergency room due to fall. The patient had fall. She does not remember what happened. She was brought to the emergency room lethargic. During hospitalization, CT scan was performed that indicated left occipital skull fracture and subarachnoid hemorrhage in the left frontal and temporal regions. A very small subdural hematoma. The patient's condition since then significantly improved, alert and fully oriented. She also developed an episode of AV dissociation and junctional rhythm. I was consulted for evaluation and management. The chart was reviewed. The patient was evaluated. Patient previously seen by Dr. Woo, Cardiology. ALLERGIES: ZITHROMAX, CEPHALEXIN, CIPRO, CODEINE, DULOXETINE, , LEVAQUIN, OXYCODONE, PREGABALIN. SOCIAL HISTORY: Negative for smoking and drinking. FAMILY HISTORY: Noncontributory to her current medical condition. MEDICATIONS: Currently, she is on IV, she is on Tylenol, she is on DuoNeb's , Xanax, Norvasc 5 mg p.o. was reinitiated, she is on Lipitor 10 mg p.o., she is on clonidine p.r.n. she is on Pepcid, Amaryl 1 mg a day, lisinopril 10 mg twice a day, Pamelor, Requip, prednisone 10 mg a day, Restoril p.r.n. REVIEW OF SYSTEMS: She refers feeling better today. No chest pain, no headache, no chest discomfort. No fever. PHYSICAL EXAMINATION: GENERAL: Alert, fully oriented, pleasant. VITAL SIGNS: Blood pressure 151/82, pulse 68, respiratory rate 18. LUNGS: Good air entry bilaterally. CARDIOVASCULAR: S1, S2. No gallop. No murmur. ABDOMEN: Soft. No mass. Obese. No bruit. EXTREMITIES: No edema. ELECTROCARDIOGRAM: Indicates sinus rhythm. Also, there is episode of ectopic low atrial rhythm. Poor R-wave progression, diffuse ST changes. LABORATORY DATA: Hemoglobin is 12, white blood cell 11.8. Potassium 2.7, creatinine 0.54. INR 1.0. ASSESSMENT AND RECOMMENDATIONS: Ms. John currently is stable. She is in sinus rhythm. Heart rate controlled. There was an episode of junctional rhythm. No clear P wave seen. There is a suspicion of syncopal episode that led to the head fracture. There was no previous history of syncope. At this point, my recommendation is to resume her home medications. Resume the Norvasc to 10 mg a day. There is an episode of tachyarrhythmia, beta rico can be used, but first, she will need electrophysiology study. If there is no conduction disease found, a loop recorder should be inserted. If there is any conduction disease, then pacing support will be considered. Case extensively discussed with her. Before initiating a negative chronotropic medication, we have to wait for the EP study. At this point, she just began to regain consciousness progressively. She is doing well. I will observe her tomorrow. If stable, then electrophysiology study will be considered for Friday. MD BETSY Jiménez/OBEY , 07:01 PM , 10:08 PM
[2017-12-16] MEDS ORDERED: LISINOPRIL 20 MG TAB PO SCH (09:00)
--- NOTE | 2017-12-16 09:48 | HHI.NSPN ---
([facility]) History Chief Complaint: Headache and dizziness. (Barry Macdonald) Interval History 12/11: 71 yo fall secondary to probable syncopal episode 12/12: The patient is drowsy when seen this morning. She awakens to voice and briefly participates before drifting back off to sleep. She does have some confusion and it appears that she may have either some receptive aphasia. Sensation intact upon evaluation. Mild left upper extremity weakness due to pain secondary to rotator cuff injury, and normal to the other extremities. She went for a repeat CT brain this morning which was without change. 12/13: Or new problems reported. No complaint of headache today. Out of bed in chair earlier this morning without difficulty Poor oral intake. No nausea or emesis 12/14: Pt awakens but is lethargic. Pupils 3mm bilaterally. She is on Cardene drip. She follows commands. Moves all 4 extremities. NC 2L. 12/15: The patient is awake and visiting with her family when seen. She reports that she developed a headache and dizziness when she got up earlier. Nursing reports that the patient is weak. She denied any pain, numbness or tingling to the extremities. Her confusion is improved upon evaluation. She continues to have weakness to the left upper extremity due to her rotator cuff injury. She also is weaker to both quadriceps upon testing. She is not on the nicardipine drip when seen although her systolic blood pressure was elevated. Also her heart rate was elevated. Nursing does report that Cardiology plans to do further testing mid week. 12/16: This morning the patient is drowsy laying in bed. She has family at the bedside. She awakens to voice and her affect is flat this morning. She does say she has a slight headache at present and has had dizziness when she gets up. She endorsed numbness to the lower extremities today. When asked again about the numbness to the lower extremities she states that it comes from the base of the skull up to the top of the head and disappears. Also it isn't there all the time. She states that this started after she came into the hospital. She is oriented to person, place and time upon evaluation. Her upper extremity exam is without change from yesterday. She has decreased sensation and weakness to the lower extremities. She is not able to hold the lower legs straight upon testing. (Barry Macdonald) Exam Results 12/14/17 12/14/17 12/15/17 12/15/17 12/16/17 12/16/17 06:00 18:00 06:00 18:00 06:00 18:00 Intake Total 500 ml 1360 ml 720 ml 600 ml Output Total 1500 ml 2300 ml 1000 ml 650 ml Balance -1000 ml -940 ml -280 ml -50 ml Intake Oral 400 ml 360 ml 720 ml IV Total 100 ml 1000 ml 600 ml Output Urine Total 1500 ml 2300 ml 1000 ml 650 ml # Bowel Movements 0 0 0 Vital Signs Date Time Temp Pulse Resp B/P (MAP) Pulse Ox O2 Delivery O2 Flow Rate FiO2 12/16/17 08:16 97 21 12/16/17 08:00 109 12/16/17 08:00 98.0 114 16 172/91 (118) 94 12/16/17 07:00 94 Room Air 12/16/17 06:00 73 12/16/17 04:02 98 Nasal Cannula 2.00 12/16/17 04:00 72 12/16/17 04:00 98.7 72 20 174/83 (113) 94 12/16/17 02:00 70 12/16/17 00:00 98.9 73 23 172/87 (115) 100 12/16/17 00:00 73 12/15/17 23:05 99 Nasal Cannula 2.00 12/15/17 23:05 99 Nasal Cannula 2.00 12/15/17 22:00 73 12/15/17 20:00 98.7 72 26 153/73 (99) 100 12/15/17 20:00 68 12/15/17 18:00 68 12/15/17 16:00 66 12/15/17 16:00 98.1 66 18 136/69 (91) 100 12/15/17 14:00 71 12/15/17 12:00 68 12/15/17 12:00 98.1 68 17 151/82 (105) 100 12/15/17 10:00 117 12/15/17 08:00 121 12/15/17 08:00 97.7 121 25 150/82 (104) 100 12/15/17 07:00 99 Nasal Cannula 2.00 12/15/17 07:00 99 Nasal Cannula 2.00 12/15/17 04:00 98.6 76 20 162/76 (104) 100 12/15/17 00:00 98.0 76 19 164/88 (113) 100 12/14/17 20:00 98.4 73 17 153/77 (102) 100 12/14/17 19:12 Nasal Cannula 2.00 12/14/17 19:10 100 Nasal Cannula 2.00 12/14/17 18:01 86 12/14/17 16:20 97.9 93 19 148/78 (101) 100 12/14/17 16:00 75 12/14/17 14:00 71 12/14/17 12:08 97.7 75 16 145/73 (97) 97 12/14/17 12:00 75 12/14/17 10:00 121 12/14/17 08:13 97 Nasal Cannula 2.00 12/14/17 08:00 97.9 121 33 139/75 (96) 97 12/14/17 08:00 121 12/14/17 07:00 100 Nasal Cannula 2.00 12/14/17 06:47 122 146/69 12/14/17 06:00 111 12/14/17 04:00 97.5 77 20 149/83 (105) 99 12/14/17 01:20 82 191/83 12/14/17 00:00 98.6 78 22 146/90 (108) 97 12/13/17 20:00 98.6 77 21 146/70 (95) 97 12/13/17 19:35 Nasal Cannula 2.00 12/13/17 18:00 85 12/13/17 17:28 97.6 82 28 148/71 (96) 96 12/13/17 16:00 83 12/13/17 14:00 83 12/13/17 12:00 78 12/13/17 12:00 98.0 78 19 142/62 (88) 94 12/13/17 10:00 85 (Barry Macdonald) Physical Examination GENERAL: Drowsy in bed w/family visiting her. Awakens to voice. Affect flat & interacts. No apparent distress. SBP & HR elevated. HEENT: Normocephalic, atraumatic. PERRLA 2 mm, EOMI. MMM & pink, tongue midline to protrusion. MUSCULOSKELETAL: CAGLE to command w/o difficulty. No evident clubbing or deformity. TTP at the left shoulder joint due to a rotator cuff injury. NEUROLOGICAL: Drowsy but awakens to voice. Speech clear & appropriate. Follows simple commands w/o difficulty. CN II through XII appear grossly intact. Sensation decreased to BLE but intact to light touch BUE. Motor strength: LUE is 4+ to 5/5 to biceps & triceps, 4/5 to hand grasp, deltoid not tested due to rotator cuff injury. RUE is 5/5 to all major flexion & extension muscle groups. LLE is 4+/5 iliopsoas, 1+ to 2/5 quadriceps, 4 to 4+/5 hamstring, 5/5 tibialis anterior, 5/5 gastrocnemius and 5/5 extensor hallucis longus. RLE is 4+/5 iliopsoas, 1+ to 2/5 quadriceps, 4+/5 hamstring, 5/5 tibialis anterior, 5/5 gastrocnemius and 5/5 extensor hallucis longus. (Barry Macdonald) Lab, Micro, Other Results Laboratory Tests Test 12/14/17 04:42 12/14/17 09:30 12/15/17 05:35 Blood Urea Nitrogen 14 MG/DL Creatinine 0.54 MG/DL Random Glucose 99 MG/DL Calcium Level 9.4 MG/DL Sodium Level 146 MEQ/L Potassium Level 3.7 MEQ/L Chloride Level 109 MEQ/L Carbon Dioxide Level 28.1 MEQ/L Anion Gap 9 MEQ/L Estimat Glomerular Filtration Rate 111 ML/MIN Urine Color YELLOW Urine Turbidity CLEAR Urine pH 7.0 Urine Specific [place] 1.009 Urine Protein NEG mg/dL Urine Glucose (UA) NEG mg/dL Urine Ketones NEG mg/dL Urine Occult Blood NEG Urine Nitrite POS Urine Bilirubin NEG Urine Urobilinogen 2.0 mg/dL Urine Leukocyte Esterase NEG Urine WBC LESS THAN 1 /hpf Urine Bacteria MANY /hpf Urine Mucus FEW /lpf Microscopic Urinalysis Comment CATH-CULTURE IND White Blood Count 11.8 TH/MM3 Red Blood Count 4.07 MIL/MM3 Hemoglobin 12.0 GM/DL Hematocrit 37.8 % Mean Corpuscular Volume 92.8 FL Mean Corpuscular Hemoglobin 29.5 PG Mean Corpuscular Hemoglobin Concent 31.7 % Red Cell Distribution Width 15.8 % Platelet Count 200 TH/MM3 Mean Platelet Volume 8.5 FL Neutrophils (%) (Auto) 84.2 % Lymphocytes (%) (Auto) 8.6 % Monocytes (%) (Auto) 6.6 % Eosinophils (%) (Auto) 0.4 % Basophils (%) (Auto) 0.2 % Neutrophils # (Auto) 9.9 TH/MM3 Lymphocytes # (Auto) 1.0 TH/MM3 Monocytes # (Auto) 0.8 TH/MM3 Eosinophils # (Auto) 0.0 TH/MM3 Basophils # (Auto) 0.0 TH/MM3 CBC Comment DIFF FINAL Differential Comment (Barry Macdonald) Medical Decision Making Impression and Plan Impression: 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 She does have a headache when seen & dizziness when she gets up. Oriented to person, place & time. Cranial Nerves appear intact. Now w/ decreased sensation to LEs. Mild weakness to LUE secondary to pain due to rotator cuff injury. Now w/increased weakness to BLE. Tachycardiac. Past 24 hrs: Afebrile. Tachycardia yesterday morning. SBP intermittently above desired range. No labs for today. CT brain demonstrated resolving bilateral SAH w/developing encephalomalacia to the left frontal lobe w/mild mass effect; there is no significant change in the septum pellucidum midline shift; no new haemorrhage; stable calvarial fracture to the right occipital bone. Plan: Primary & critical care management per [facility]. Stat CT for any decline in neuro status. Seizure prophylaxis. Monitor serum sodium. Maintain SBP between 120 and 150 mm Hg. Hold pharmacologic DVT prophylaxis. Mechanical DVT prophylaxis. Stress ulcer prophylaxis. CT brain w/o contrast now. (Barry Macdonald) Attending Statement The exam, history, and the medical decision-making described in the above note were completed with the assistance of the mid-level provider. I reviewed and agree with the findings presented. I attest that I had a [id number] encounter with the patient on the same day, and personally performed and documented my assessment and findings in the medical record. On exam 12/16/2017, patient remains with somewhat fluctuating neurologic status. 12/16/2017 CT scan head images reveal evolution of bilateral subarachnoid hemorrhage with possible mild increase edema primarily frontoparietal regions. There is now approximately 3 mm left to right midline shift. No hydrocephalus. Discussed with family Continue close observation and neurologic checks. Monitor sodium Continue therapy (Nelson Le MD) Barry Macdonald Dec 16, 2017 09:48 Nelson Le MD Dec 17, 2017 21:10
--- NOTE | 2017-12-16 18:15 | HHI.PR ---
Subjective Remarks No new complaints. Objective Vitals Vital Signs Date Time Temp Pulse Resp B/P (MAP) Pulse Ox O2 Delivery O2 Flow Rate FiO2 12/16/17 16:00 98.0 68 18 186/98 (127) 99 12/16/17 16:00 68 12/16/17 14:00 75 12/16/17 12:00 98.6 79 23 171/90 (117) 94 12/16/17 12:00 80 12/16/17 10:00 83 12/16/17 08:16 97 21 12/16/17 08:00 109 12/16/17 08:00 98.0 114 16 172/91 (118) 94 12/16/17 07:00 94 Room Air 12/16/17 06:00 73 12/16/17 04:02 98 Nasal Cannula 2.00 12/16/17 04:00 72 12/16/17 04:00 98.7 72 20 174/83 (113) 94 12/16/17 02:00 70 12/16/17 00:00 98.9 73 23 172/87 (115) 100 12/16/17 00:00 73 12/15/17 23:05 99 Nasal Cannula 2.00 12/15/17 23:05 99 Nasal Cannula 2.00 12/15/17 22:00 73 12/15/17 20:00 98.7 72 26 153/73 (99) 100 12/15/17 20:00 68 Result Diagram: 12/15/17 0535 12/14/17 0442 Imaging Last Impressions Head CT 12/13/17 0000 Signed Impressions: CONCLUSION: 1. Resolving bilateral subarachnoid hemorrhage. Developing encephalomalacia in the left frontal lobe with mild localized mass effect. No significant change i n midline shift of the septum pellucidum. No new hemorrhage. Stable calvarial f racture in the right occipital bone. Abdomen/Pelvis CT 12/12/17 0000 Signed Impressions: CONCLUSION: 1. No abdominal visceral injury. Chest X-Ray 12/11/17 1617 Signed Impressions: CONCLUSION: No evidence of acute airspace disease or significant congestion. Cervical Spine CT 12/11/17 1613 Signed Impressions: CONCLUSION: 1. Right occipital calvarial fracture. 2. Degenerative subluxations and advanced multilevel degenerative changes. Neck CTA 12/11/17 0000 Addendum Impressions: CONCLUSION: 1. No hemodynamically significant stenosis in either carotid artery. 2. Mild narrowing in the left carotid bulb estimated to be 30-40 %. Head CTA 12/11/17 0000 Signed Impressions: CONCLUSION: 1. Right occipital calvarial fracture. 2. No large vessel stenosis or aneurysm. 3. Dominant left vertebral artery. 4. Distal right vertebral artery not seen. Objective Remarks GENERAL: This is a well-nourished, well-developed patient, in no apparent distress. CARDIOVASCULAR: Regular rate and rhythm without murmurs, gallops, or rubs. RESPIRATORY: Clear to auscultation. Breath sounds equal bilaterally. No wheezes , rales, or rhonchi. GASTROINTESTINAL: Abdomen soft, non-tender, nondistended. Normal active bowel sounds MUSCULOSKELETAL: Extremities without clubbing, cyanosis, or edema. NEURO: Alert & Oriented x4 to person, place, time, situation. Moves all ext x4 A/P Problem List: (1) Subarachnoid hemorrhage ICD Codes: I60.9 - Nontraumatic subarachnoid hemorrhage, unspecified Status: Acute Plan: 1. syncope/collapse 2. SAH/basilar skull fx 3. junctional rhythm 4. htn 5. diabetes 6. RA/chronic steroids - continue telemetry. - Dr. Jones to consult. Possible EP study - lisinopril - change norvasc to procardia XL 30mg BID - Repeat CT brain per NSX - PT - keppra - SSI (2) Junctional cardiac arrhythmia ICD Codes: I49.8 - Other specified cardiac arrhythmias Status: Acute (3) Skull fracture ICD Codes: S02.91XA - Unspecified fracture of skull, initial encounter for closed fracture Status: Acute (4) Syncope and collapse ICD Codes: R55 - Syncope and collapse Status: Acute (5) HTN (hypertension) ICD Codes: I10 - Essential (primary) hypertension Status: Chronic (6) Rheumatoid arthritis ICD Codes: M06.9 - Rheumatoid arthritis, unspecified Status: Chronic (7) Diabetes ICD Codes: E11.9 - Type 2 diabetes mellitus without complications Status: Chronic Problem Qualifiers (1) Skull fracture: Qualified Codes: S02.119B - Unspecified fracture of occiput, initial encounter for open fracture Dany Licea DO Dec 16, 2017 18:15
[2017-12-16] MEDS ORDERED: ACETAMINOPHEN/HYDROcodone 325 MG/5 MG TAB PO PRN (19:00)
[2017-12-16] MEDS ORDERED: NIFEdipine 30 MG SUSTAINED RELEASE TAB PO ONE (19:00)
[2017-12-16] MEDS ORDERED: NIFEdipine 30 MG SUSTAINED RELEASE TAB PO SCH ×2 (19:00→21:00)
--- NOTE | 2017-12-16 19:03 | RADRPT ---
EXAM DATE: 12/16/2017 6:51 PM EDT AGE/SEX: 71 years / Female INDICATIONS: Cephalgia. CLINICAL DATA: This is the patient's subsequent encounter. Patient reports that signs and symptoms h ave been present for 3 days and indicates a pain score of 6/10. MEDICAL/SURGICAL HISTORY: Deep venous thrombosis. Carcinoma, lung. Carcinoma, breast. None. RADIATION DOSE: 45.62 CTDI (mGy) COMPARISON: [facility] [place], CT BRAIN W/O CONTRAST, 12/13/2017. . TECHNIQUE: CT of the head without contrast. Using automated exposure control and adjustment of the mA and/or kV according to patient size, radiation dose was kept as low as reasonably achievable to ob tain optimal diagnostic quality images. DICOM format image data is available electronically for revi ew and comparison. FINDINGS: Continued evolution of bilateral subarachnoid hemorrhage, most prominently in the left frontal lobe c onvexities. There is also evolving intraventricular hemorrhage. Progressive cerebral edema involving the left frontal mid to lower convexities with loss of vargas-white matter differentiation. Increasing mass effect on the frontal horn of the left lateral ventricle. Slight increased left to right subfalc ine shift measuring up to 3 mm. Ventricles are stable in size. Basilar cisterns are maintained. No in tercurrent hemorrhage. Cerebellum is intact. Brainstem is intact. Stable right occipital skull fractu re. CONCLUSION: 1. Evolving bilateral subarachnoid hemorrhage with progressive encephalomalacia and edema in the lef t frontal mid to lower convexities. There is slight increased associated mass effect with increased l [id number] subfalcine shift measuring up to 3 mm. 2. Evolving trace intraventricular hemorrhage. 3. No new intercurrent hemorrhage. Electronically signed by: Henry Chapman MD 12/16/2017 7:02 PM EDT
[2017-12-16] MEDS ORDERED: PILL SPLITTER OTHER PRN (19:30)
[2017-12-16] MEDS ORDERED: HYDROmorphone HCL 2 MG TAB PO PRN (19:30)
[2017-12-16] MEDS: ATORVASTATIN 10 MG TAB PO SCH (20:12)
[2017-12-16] MEDS: SODIUM CHLORIDE 0.9% FLUSH 10 ML FLUSH IV FLUSH SCH ×2 (20:12→20:48)
[2017-12-16] MEDS: NORTRIPTYLINE HCL 25 MG CAP PO SCH (20:13)
[2017-12-16] MEDS: niCARdipine INJ 25 MG in SODIUM CHLOR 0.9% 250 ML INJ 250 ML IV PRN (20:23)
[2017-12-17] VITALS (14 sets, daily range): BP systolic 117–147; BP diastolic 58–84; PULSE 72–98; RESP 20–41; TEMP 97.9–100.5; O2SAT 91–98
[2017-12-17] MEDS: niCARdipine INJ 25 MG in SODIUM CHLOR 0.9% 250 ML INJ 250 ML IV PRN ×2 (01:49→06:39)
[2017-12-17] MEDS: CHLORHEXIDINE GLUCONATE 2 % 1 PACK (2 CLOTHS) TOP SCH (04:00)
[2017-12-17] MEDS: MORPHINE SULFATE 4 MG/ML INJ IV PUSH PRN (06:39)
[2017-12-17 06:47] LABS: AUTOMATED NEUTROPHIL # 16.1 TH/MM3 (1.8-7.7); BASOPHIL % 0.2 % (0.0-2.0); EOSINOPHIL % 0.2 % (0.0-4.0); HEMATOCRIT 41.8 % (35.0-46.0); HEMOGLOBIN 13.3 GM/DL (11.6-15.3); LYMPH % 5.7 % (9.0-44.0); MEAN CELL VOLUME 91.3 FL (80.0-100.0); MEAN CORPUSCULAR HEMOGLOBIN 29.1 PG (27.0-34.0); MEAN CORPUSCULAR HGB CONC 31.9 % (32.0-36.0); MEAN PLATELET VOLUME 7.6 FL (7.0-11.0); MONO % 5.7 % (0.0-8.0); NEUT % 88.2 % (16.0-70.0); PLATELET COUNT 245 TH/MM3 (150-450); RED BLOOD COUNT 4.58 MIL/MM3 (4.00-5.30); RED CELL DISTRIBUTION WIDTH 15.7 % (11.6-17.2); WHITE BLOOD COUNT 18.2 TH/MM3 (4.0-11.0)
[2017-12-17 06:57] LABS: BICARBONATE 25.1 MEQ/L (21.0-32.0); CALCIUM 8.6 MG/DL (8.5-10.1); CREATININE 0.5 MG/DL (0.50-1.00); MAGNESIUM 1.9 MG/DL (1.5-2.5)
[2017-12-17] MEDS: INSULIN ASPART SUPPLEMENTAL SCALE SQ SCH ×4 (08:00→21:00)
[2017-12-17] MEDS: GLIMEPIRIDE 1 MG TAB PO SCH (08:26)
[2017-12-17] MEDS: levETIRAcetam 500 MG TAB PO SCH ×2 (08:26→22:02)
[2017-12-17] MEDS: DOCUSATE SODIUM 50 MG/SENNA 8.6 MG TAB PO SCH ×2 (08:26→22:01)
[2017-12-17] MEDS: predniSONE 10 MG TAB PO SCH (08:26)
[2017-12-17] MEDS: SODIUM CHLORIDE 0.9% FLUSH 10 ML FLUSH IV FLUSH SCH ×2 (08:27→21:00)
[2017-12-17] MEDS: FAMOTIDINE 20 MG TAB PO SCH ×2 (08:27→22:02)
[2017-12-17] MEDS: NIFEdipine 30 MG SUSTAINED RELEASE TAB PO SCH ×2 (08:27→22:02)
[2017-12-17] MEDS: SODIUM CHLOR 0.9% 1000 ML INJ 1,000 ML IV SCH ×2 (08:27→13:55)
--- NOTE | 2017-12-17 08:30 | HHI.PR ---
Subjective Remarks Doing ok Objective Vital Signs Date Time Temp Pulse Resp B/P (MAP) Pulse Ox O2 Delivery O2 Flow Rate FiO2 12/17/17 06:39 80 110/56 12/17/17 06:00 85 12/17/17 04:00 83 12/17/17 04:00 98.7 86 20 132/65 (87) 97 12/17/17 02:00 89 12/17/17 01:49 81 135/64 12/17/17 00:00 97.9 78 21 140/84 (102) 98 12/17/17 00:00 98 Nasal Cannula 2.00 12/17/17 00:00 98 12/16/17 22:00 98 12/16/17 20:23 89 198/100 12/16/17 20:00 97.8 90 18 198/100 (132) 12/16/17 20:00 98 12/16/17 20:00 92 Room Air 12/16/17 18:00 75 12/16/17 16:00 98.0 68 18 186/98 (127) 99 12/16/17 16:00 68 12/16/17 14:00 75 12/16/17 12:00 98.6 79 23 171/90 (117) 94 12/16/17 12:00 80 12/16/17 10:00 83 I/O 12/16/17 12/16/17 12/16/17 12/17/17 12/17/17 12/17/17 07:00 15:00 23:00 07:00 15:00 23:00 Intake Total 600 ml 300 ml 426 ml Output Total 650 ml 2400 ml 2200 ml Balance -50 ml -2100 ml -1774 ml Intake Oral 300 ml IV Total 600 ml 426 ml Output Urine Total 650 ml 2400 ml 2200 ml Result Diagram: 12/17/17 0612 12/17/17 0612 Imaging Alert, fully oriented, in bed lungs: ventilated Heart: S1, S2 regular, no gallop Abdomen: obese, no mass Ext: no edema Last Impressions Head CT 12/16/17 1020 Signed Impressions: CONCLUSION: 1. Evolving bilateral subarachnoid hemorrhage with progressive encephalomalaci a and edema in the left frontal mid to lower convexities. There is slight incre ased associated mass effect with increased [id number] subfalcine shift measu ring up to 3 mm. 2. Evolving trace intraventricular hemorrhage. 3. No new intercurrent hemorrhage. Abdomen/Pelvis CT 12/12/17 0000 Signed Impressions: CONCLUSION: 1. No abdominal visceral injury. Chest X-Ray 12/11/17 1617 Signed Impressions: CONCLUSION: No evidence of acute airspace disease or significant congestion. Cervical Spine CT 12/11/17 1613 Signed Impressions: CONCLUSION: 1. Right occipital calvarial fracture. 2. Degenerative subluxations and advanced multilevel degenerative changes. Neck CTA 12/11/17 0000 Addendum Impressions: CONCLUSION: 1. No hemodynamically significant stenosis in either carotid artery. 2. Mild narrowing in the left carotid bulb estimated to be 30-40 %. Head CTA 12/11/17 0000 Signed Impressions: CONCLUSION: 1. Right occipital calvarial fracture. 2. No large vessel stenosis or aneurysm. 3. Dominant left vertebral artery. 4. Distal right vertebral artery not seen. Current Medications Medications (Trade) Dose Ordered Sig/Lizeth Route Start Time Stop Time Status Last Admin Nicardipine HCl 25 mg/Sodium Chloride 260 ml @ 52 mls/hr TITRATE PRN IV 12/11/17 17:45 12/17/17 06:39 (Xanax) 0.5 mg Q4H PRN PO 12/11/17 19:45 12/15/17 22:04 (Lipitor) 10 mg HS PO 12/11/17 21:00 12/16/17 20:12 (Amaryl) 1 mg DAILY PO 12/12/17 09:00 12/16/17 08:11 (Pamelor) 25 mg HS PO 12/11/17 21:00 12/16/17 20:13 (Deltasone) 10 mg DAILY PO 12/12/17 09:00 12/16/17 08:11 (Requip) 0.5 mg HS PO 12/11/17 21:00 12/16/17 20:13 (NS Flush) 2 ml UNSCH PRN IV FLUSH 12/11/17 19:45 (NS Flush) 2 ml BID IV FLUSH 12/11/17 21:00 12/16/17 20:48 (Tylenol) 650 mg Q6H PRN PO 12/11/17 19:45 12/13/17 11:17 (Morphine Inj) 2 mg Q2H PRN IV PUSH 12/11/17 19:45 12/17/17 06:39 (Zofran Odt) 4 mg Q6H PRN PO 12/11/17 19:45 12/11/17 21:50 (Restoril) 15 mg HS PRN PO 12/11/17 21:00 12/16/17 00:19 (Duoneb Neb) 1 ampule Q2HR NEB PRN INH 12/11/17 19:45 ([facility] [place] [facility] Information) 1 Q361D XX 12/11/17 19:45 12/11/17 19:45 (Chlorhexidine 2% Cloth) Taper DAILY@04 TOP 12/12/17 04:00 12/08/18 03:59 12/17/17 04:00 (Chlorhexidine 2% Cloth) 3 pack UNSCH PRN TOP 12/11/17 19:45 (Monique-Colace) 1 tab BID PO 12/11/17 21:00 12/16/17 20:13 (Milk Of Magnesia Liq) 30 ml Q12H PRN PO 12/11/17 19:45 (Senokot) 17.2 mg Q12H PRN PO 12/11/17 19:45 (Dulcolax Supp) 10 mg DAILY PRN RECTAL 12/11/17 19:45 (Lactulose Liq) 30 ml DAILY PRN PO 12/11/17 19:45 (D50w (Vial) Inj) 50 ml UNSCH PRN IV PUSH 12/11/17 21:30 (Glucagon Inj) 1 mg UNSCH PRN OTHER 12/11/17 21:30 (Vasotec Inj) 2.5 mg Q6H PRN IV PUSH 12/12/17 10:15 12/16/17 20:13 Sodium Chloride 1,000 ml @ 50 mls/hr Q20H IV 12/13/17 08:45 12/15/17 08:26 (Prinivil) 10 mg Q12HR PO 12/13/17 09:00 12/16/17 20:13 (Catapres) 0.1 mg Q4H PRN PO 12/14/17 09:00 12/16/17 20:13 (Keppra) 500 mg Q12HR PO 12/14/17 09:00 12/16/17 20:12 (NovoLOG SUPPLEMENTAL SCALE) 1 ACHS SLIDING SCALE SQ 12/14/17 12:00 12/14/17 20:59 (Pepcid) 20 mg BID PO 12/15/17 21:00 12/16/17 20:13 (Procardia Xl) 30 mg BID PO 12/17/17 09:00 (Dilaudid) 0.5 mg Q6H PRN PO 12/16/17 19:30 (Pill Splitter) 1 ea UNSCH PRN OTHER 12/16/17 19:30 Assessment and Plan Problem List: (1) Junctional cardiac arrhythmia ICD Codes: I49.8 - Other specified cardiac arrhythmias Status: Acute Plan: In sinus rhythm Doing better apparently significant other just went to [facility] Nurse told me palliative care will be consulted If this is the case, there is no need fopr further investigation of the cause of syncope and AV block I will see the patient on a PRN basis (2) Syncope and collapse ICD Codes: R55 - Syncope and collapse Status: Acute Plan: No new episode since hospitalization Physician Attestation Note is for December 16. Could not access the documentation part of the system yesterday Romana Jones MD Dec 17, 2017 08:30
[2017-12-17] MEDS: LISINOPRIL 10 MG TAB PO SCH ×2 (09:00→22:01)
[2017-12-17] MEDS: ACETAMINOPHEN 325 MG TAB PO PRN (09:11)
--- NOTE | 2017-12-17 11:08 | HHI.NSPN ---
([facility]) History Chief Complaint: Headache and dizziness. (Barry Macdonald) Interval History 12/11: 71 yo fall secondary to probable syncopal episode 12/12: The patient is drowsy when seen this morning. She awakens to voice and briefly participates before drifting back off to sleep. She does have some confusion and it appears that she may have either some receptive aphasia. Sensation intact upon evaluation. Mild left upper extremity weakness due to pain secondary to rotator cuff injury, and normal to the other extremities. She went for a repeat CT brain this morning which was without change. 12/13: Or new problems reported. No complaint of headache today. Out of bed in chair earlier this morning without difficulty Poor oral intake. No nausea or emesis 12/14: Pt awakens but is lethargic. Pupils 3mm bilaterally. She is on Cardene drip. She follows commands. Moves all 4 extremities. NC 2L. 12/15: The patient is awake and visiting with her family when seen. She reports that she developed a headache and dizziness when she got up earlier. Nursing reports that the patient is weak. She denied any pain, numbness or tingling to the extremities. Her confusion is improved upon evaluation. She continues to have weakness to the left upper extremity due to her rotator cuff injury. She also is weaker to both quadriceps upon testing. She is not on the nicardipine drip when seen although her systolic blood pressure was elevated. Also her heart rate was elevated. Nursing does report that Cardiology plans to do further testing mid week. 12/16: This morning the patient is drowsy laying in bed. She has family at the bedside. She awakens to voice and her affect is flat this morning. She does say she has a slight headache at present and has had dizziness when she gets up. She endorsed numbness to the lower extremities today. When asked again about the numbness to the lower extremities she states that it comes from the base of the skull up to the top of the head and disappears. Also it isn't there all the time. She states that this started after she came into the hospital. She is oriented to person, place and time upon evaluation. Her upper extremity exam is without change from yesterday. She has decreased sensation and weakness to the lower extremities. She is not able to hold the lower legs straight upon testing. 12/17: When seen this morning the patient is asleep but awakens to voice. She does interact but does requires coaxing at times. She drifts back off to sleep quickly. She denied any headache or dizziness. She continues to have pain to the left shoulder joint and now to the right elbow. She follows some commands. She participates to a limited degree in motor testing. Palliative Care is at the bedside to evaluate the patient. She went for a CT brain yesterday which demonstrated evolving SAH bilaterally and progressing encephalomalacia and edema. Also with slight increase in mass effect and subfalcine shift. Evolving intraventricular haemorrhage. No new haemorrhage noted. (Barry Macdonald) Exam Results 12/15/17 12/15/17 12/16/17 12/16/17 12/17/17 12/17/17 06: 18:00 06:00 18:00 06:00 18:00 Intake Total 1360 ml 720 ml 900 ml 426 ml Output Total 2300 ml 1000 ml 3050 ml 2200 ml Balance -940 ml -280 ml -2150 ml -1774 ml Intake Oral 360 ml 720 ml 300 ml IV Total 1000 ml 600 ml 426 ml Output Urine Total 2300 ml 1000 ml 3050 ml 2200 ml # Bowel Movements 0 0 Vital Signs Date Time Temp Pulse Resp B/P (MAP) Pulse Ox O2 Delivery O2 Flow Rate FiO2 12/17/17 09:37 96 Nasal Cannula 2.00 12/17/17 06:39 80 110/56 12/17/17 06:00 85 12/17/17 04:00 83 12/17/17 04:00 98.7 86 20 132/65 (87) 97 12/17/17 02:00 89 12/17/17 01:49 81 135/64 12/17/17 00:00 97.9 78 21 140/84 (102) 98 12/17/17 00:00 98 Nasal Cannula 2.00 12/17/17 00:00 98 12/16/17 22:00 98 12/16/17 20:23 89 198/100 12/16/17 20:00 97.8 90 18 198/100 (132) 12/16/17 20:00 98 12/16/17 20:00 92 Room Air 12/16/17 18:00 75 12/16/17 16:00 98.0 68 18 186/98 (127) 99 12/16/17 16:00 68 12/16/17 14:00 75 12/16/17 12:00 98.6 79 23 171/90 (117) 94 12/16/17 12:00 80 12/16/17 10:00 83 12/16/17 08:16 97 21 12/16/17 08:00 109 12/16/17 08:00 98.0 114 16 172/91 (118) 94 12/16/17 07:00 94 Room Air 12/16/17 06:00 73 12/16/17 04:02 98 Nasal Cannula 2.00 12/16/17 04:00 72 12/16/17 04:00 98.7 72 20 174/83 (113) 94 12/16/17 02:00 70 12/16/17 00:00 98.9 73 23 172/87 (115) 100 12/16/17 00:00 73 12/15/17 23:05 99 Nasal Cannula 2.00 12/15/17 23:05 99 Nasal Cannula 2.00 12/15/17 22:00 73 12/15/17 20:00 98.7 72 26 153/73 (99) 100 12/15/17 20:00 68 12/15/17 18:00 68 12/15/17 16:00 66 12/15/17 16:00 98.1 66 18 136/69 (91) 100 12/15/17 14:00 71 12/15/17 12:00 68 12/15/17 12:00 98.1 68 17 151/82 (105) 100 12/15/17 10:00 117 12/15/17 08:00 121 12/15/17 08:00 97.7 121 25 150/82 (104) 100 12/15/17 07:00 99 Nasal Cannula 2.00 12/15/17 07:00 99 Nasal Cannula 2.00 12/15/17 04:00 98.6 76 20 162/76 (104) 100 12/15/17 00:00 98.0 76 19 164/88 (113) 100 12/14/17 20:00 98.4 73 17 153/77 (102) 100 12/14/17 19:12 Nasal Cannula 2.00 12/14/17 19:10 100 Nasal Cannula 2.00 12/14/17 18:01 86 12/14/17 16:20 97.9 93 19 148/78 (101) 100 12/14/17 16:00 75 12/14/17 14:00 71 12/14/17 12:08 97.7 75 16 145/73 (97) 97 12/14/17 12:00 75 (Barry Macdonald) Physical Examination GENERAL: Asleep in bed but awakens to voice. Drifts back off to sleep & requires coaxing to interact. Affect flat. No apparent distress. HEENT: Normocephalic, atraumatic. PERRLA 2 mm, EOMI. MMM & pink, tongue midline to protrusion. MUSCULOSKELETAL: CAGLE to command. No evident clubbing or deformity. TTP at the left shoulder joint due to a rotator cuff injury. TTP to right elbow. NEUROLOGICAL: Asleep but awakens to voice. Drifts back off to sleep quickly. Oriented to person & place. Speech clear. Follows some simple commands. CN II through XII appear grossly intact. Sensation intact to light touch to all extremities. Motor strength: LUE is 4+ to 5/5 to biceps & triceps, 4+/5 to hand grasp, deltoid not tested due to rotator cuff injury. RUE is 4+ to 5/5 to deltoid, biceps & triceps, 4+/5 hand grasp. LLE is 3/5 quadriceps, patient didn't participate for any further testing. RLE is 4/5 iliopsoas, 1+/5 quadriceps, 4/5 tibialis anterior, patient didn't participate for any further testing. (Barry Macdonald) Lab, Micro, Other Results Recent Impressions Head CT 12/16/17 1020 Signed Impressions: CONCLUSION: 1. Evolving bilateral subarachnoid hemorrhage with progressive encephalomalaci a and edema in the left frontal mid to lower convexities. There is slight incre ased associated mass effect with increased [id number] subfalcine shift measu ring up to 3 mm. 2. Evolving trace intraventricular hemorrhage. 3. No new intercurrent hemorrhage. Laboratory Tests Test 12/15/17 05:35 12/17/17 06:12 White Blood Count 11.8 TH/MM3 18.2 TH/MM3 Red Blood Count 4.07 MIL/MM3 4.58 MIL/MM3 Hemoglobin 12.0 GM/DL 13.3 GM/DL Hematocrit 37.8 % 41.8 % Mean Corpuscular Volume 92.8 FL 91.3 FL Mean Corpuscular Hemoglobin 29.5 PG 29.1 PG Mean Corpuscular Hemoglobin Concent 31.7 % 31.9 % Red Cell Distribution Width 15.8 % 15.7 % Platelet Count 200 TH/MM3 245 TH/MM3 Mean Platelet Volume 8.5 FL 7.6 FL Neutrophils (%) (Auto) 84.2 % 88.2 % Lymphocytes (%) (Auto) 8.6 % 5.7 % Monocytes (%) (Auto) 6.6 % 5.7 % Eosinophils (%) (Auto) 0.4 % 0.2 % Basophils (%) (Auto) 0.2 % 0.2 % Neutrophils # (Auto) 9.9 TH/MM3 16.1 TH/MM3 Lymphocytes # (Auto) 1.0 TH/MM3 1.0 TH/MM3 Monocytes # (Auto) 0.8 TH/MM3 1.0 TH/MM3 Eosinophils # (Auto) 0.0 TH/MM3 0.0 TH/MM3 Basophils # (Auto) 0.0 TH/MM3 0.0 TH/MM3 CBC Comment DIFF FINAL DIFF FINAL Differential Comment Blood Urea Nitrogen 11 MG/DL Creatinine 0.50 MG/DL Random Glucose 107 MG/DL Calcium Level 8.6 MG/DL Magnesium Level 1.9 MG/DL Sodium Level 137 MEQ/L Potassium Level 3.8 MEQ/L Chloride Level 103 MEQ/L Carbon Dioxide Level 25.1 MEQ/L Anion Gap 9 MEQ/L Estimat Glomerular Filtration Rate 122 ML/MIN (Barry Macdonald) Medical Decision Making Impression and Plan Impression: 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 She had no headache. Oriented to person & place. Cranial Nerves appear intact. No sensory deficits. BUE strength essentially normal although deltoid not tested due to injury. Limited participation w/ evaluation of BLE. Past 24 hrs: Afebrile. Tachycardia yesterday morning. SBP elevated until yesterday evening. Reviewed labs for today. Increase in leukocytosis from . Sodium 137. CT brain demonstrated evolving bilateral SAH w/progressing encephalomalacia & edema to left frontal lobe, slight increase in mass effect w/ 3 mm [id number] subfalcine shift; evolving trace IVH; no new haemorrhage noted. Plan: Primary & critical care management per [employer]. Stat CT for any decline in neuro status. Seizure prophylaxis. Monitor serum sodium. Maintain SBP between 120 and 150 mm Hg. Hold pharmacologic DVT prophylaxis. Mechanical DVT prophylaxis. Stress ulcer prophylaxis. CT brain w/o contrast now. (Barry Madconald) Attending Statement The exam, history, and the medical decision-making described in the above note were completed with the assistance of the mid-level provider. I reviewed and agree with the findings presented. I attest that I had a [id number] encounter with the patient on the same day, and personally performed and documented my assessment and findings in the medical record. On examination 12/17/2017, patient seems a little more alert today. Speech improved a little. Answers most questions with simple but appropriate responses. Moving all extremities with moderate strength. White count elevated Sodium 137 Monitor sodium Discussed with medicine service. Appears stable for transfer to regular floor Continue Keppra seizure prophylaxis 7 days. (Nelson Le MD) Barry Macdonald Dec 17, 2017 11:08 Nelson Le MD Dec 17, 2017 21:11
--- NOTE | 2017-12-17 11:09 | PD.CONS ---
Consult Service Palliative Care Consult Requested By CASSI Hill . Primary Care Physician Omari Sawyer Jr, MD Reason for Consultation a. To assist with evaluation and management of symptoms including: Encephalopathy, pain b. To assist medical decision maker(s) with: better understanding of current medical conditions; weighing benefits/burdens of medical treatment options; making medical treatment decisions. HPI History of Present Illness This is a 71-year-old female with a history of diabetes, lupus, fibromyalgia, COPD, DVT, PE, RA, breast cancer, lung cancer and melanoma who was found in her yard 12/11/17 after a syncopal episode and subsequent fall to have sustained a subarachnoid hemorrhage. Patient states she was driving the car and suddenly could not control her right foot when trying to step on the brake. She managed to pullboat engineer and stop the car and when she got out of the car she fainted and had a brief loss of consciousness, which she did not remember. She was traveling with her friend, Kathi, for whom she had been caregiver for some years and Kathi confirmed the loss of consciousness. It should be noted that Kathi has dementia and is not a reliable source. On presentation her neurologic exam showed that she was awake, alert and oriented 3, moving all extremities well with no obvious focal neurologic deficit. CT of the cervical spine showed a right occipital calvarial fracture and degenerative subluxations with advanced multilevel degenerative changes. Head CT showed a left occipital skull fracture extending into the skull base with overlying cephalohematoma and near total opacification of the sphenoid sinus. She had a significant subarachnoid hemorrhage in the left frontal and temporal regions with a very small subdural hematoma along the left frontal bone. No true evidence of axial hematoma or infarct and no evidence of significant mass-effect or midline shift. Chest x-ray showed no evidence of acute airspace disease or significant congestion. Follow-up head CTA showed right occipital calvarial fracture with no large vessel stenosis or aneurysm. Dominant left vertebral artery with nonvisualized distal right vertebral artery. Her presenting labs showed WBC 16.7, hemoglobin 15.5, hematocrit 48.8, platelets 294, sodium 144, potassium 3.7, BUN 29, creatinine 1.33, glucose 184, AST 41, ALT 57, alkaline phosphatase 309, total creatinine kinase 111, total protein 7.7, albumin 3.5. Neurosurgery was consulted and noted no definite headache, nausea, vomiting or seizure activity. There physical exam at that time noted moderate lethargy with orientation [address], slow, clear speech able to follow simple commands with mild difficulty, diminished judgment and insight, repaired recent and remote memory. Serial CT of the head have been performed and as of 2017, CT showed evolving bilateral subarachnoid hemorrhage with progressive encephalomalacia and edema in the left frontal mid to lower convexities. Slight increase associated mass-effect with increased left to right subfalcine shift measuring up to 3 mm. Evolving trace intraventricular hemorrhage, no new intercurrent hemorrhage. She was evaluated by cardiology due to the syncopal episode and abnormal electrocardiogram. Troponins were noted to be minimally elevated at 0.10, 0.08 and 0.14. As her creatinine was elevated at 1.33, the minimal increase in troponin was felt to be secondary to renal insufficiency rather than cardiac origin. Resenting electrocardiogram showed accelerated junctional rhythm with possible right ventricular conduction delay with voltage criteria for LVH and nonspecific T-wave abnormalities. Follow-up electrocardiogram showed accelerated junctional rhythm with possible salvos of wandering atrial pacemaker. 2D echocardiogram was completed showing an ejection fraction in the range of 60-65%, mild concentric left ventricular hypertrophy, normal left ventricular size, mild to moderate mitral annular calcification with trace to mild mitral valve regurgitation. During hospitalization she developed an episode of AV disassociation with junctional rhythm and electrophysiology was consulted for evaluation. Their recommendations were to resume home medications for hypertension management and once patient stabilized to evaluate for an electrophysiology study to determine conduction time through the nodes to rule out rupal disease as a cause of syncope. 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 She had been independent in ADLs, driving, acting as a caregiver for her longtime friend with progressive dementia, Kathi Gamez. She suffered an acute onset of dysfunction in the right foot, finding herself unable to control her foot to step on the brake and then subsequently had a syncopal episode. There had been no prior episode of syncope or neurologic dysfunction. . Review of Systems ROS Limitations: Altered Mental Status Constitutional: COMPLAINS OF: Generalized weakness, DENIES: Diaphoretic episodes, Fatigue, Fever, Weight gain, Weight loss, Chills, Dizziness, Change in appetite, Night Sweats, Pain, Sleep problems Endocrine: DENIES: Abnorml menstrual pattern, Heat/cold intolerance, Polydipsia , Polyuria, Polyphagia Eyes: DENIES: Blurred vision, Diplopia, Eye inflammation, Eye pain, Vision loss , Photosensitivity, Double Vision, Blind spots Ears, nose, mouth, throat: DENIES: Tinnitus, Hearing loss, Vertigo, Nasal discharge, Oral lesions, Throat pain, Hoarseness, Ear Pain, Running Nose, Epistaxis, Sinus Pain, Toothache, Odynophagia Respiratory: DENIES: Apneas, Cough, Snoring, Wheezing, Hemoptysis, Sputum production, Shortness of breath Cardiovascular: COMPLAINS OF: Lower Extremity Edema, DENIES: Chest pain, Palpitations, Syncope, Dyspnea on Exertion, PND, Orthopnea, Claudication Gastrointestinal: DENIES: Abdominal pain, Black stools, Bloody stools, Constipation, Diarrhea, Nausea, Vomiting, Difficulty Swallowing, Anorexia, Dyspepsia or heartburn, Excessive gas, Bloating, Vomiting blood Genitourinary: DENIES: Abnormal vaginal bleeding, Dysmenorrhea, Dyspareunia, Sexual dysfunction, Urinary frequency, Urinary incontinence, Urgency, Hematuria , Dysuria, Nocturia, Vaginal discharge, Hesitancy, Dribbling, Decreased stream Musculoskeletal: COMPLAINS OF: Joint pain (Left arm, right elbow), Decreased range of motion (Left arm) Integumentary: DENIES: Abnormal pigmentation, Pruritus, Rash, Nail changes, Breast masses, Breast skin changes, Nipple discharge, Nodules, Tumors, Excessive dryness, Non-healing sores Hematologic/Lymphatics: DENIES: Bruising, Lymphadenopathy, Prolonged bleed w/ proced, History of transfusions Immunologic/Allergic: DENIES: Eczema, Urticaria Neurologic: COMPLAINS OF: Localized weakness (Bilateral lower extremities right greater than left), Poor Balance Psychiatric: COMPLAINS OF: Confusion, DENIES: Anxiety, Mood changes, Depression , Hallucinations, Agitation, Suicidal Ideation, Homicidal Ideation, Delusions, Anhedonia Past Family Social History Coded Allergies: azathioprine (Unverified Allergy, Severe, HEADACHES, FEVER, 02/11/17) cephalexin (Unverified Allergy, Severe, 02/11/17) ciprofloxacin (Unverified Allergy, Severe, DYSPNEA, 02/11/17) codeine (Unverified Allergy, Severe, 02/11/17) gabapentin (Unverified Allergy, Severe, VERTIGO, BLURRED VISION, 02/11/17) levofloxacin (Unverified Allergy, Severe, 02/11/17) oxycodone (Unverified Allergy, Severe, 02/11/17) pregabalin (Unverified Allergy, Severe, > HEPATIC ENZYMES, 02/11/17) cefazolin (Unverified Allergy, Intermediate, RASH, ITCHING, 02/11/17) duloxetine (Unverified Adverse Reaction, Unknown, NAUSEA, SEVERE HEADACHES , 02/11/17) Past Medical History Rheumatoid Arthritis GERD Scleroderma of the esophagus History of aspiration Bronchioloalveolar lung carcinoma status post resection Breast cancer status post bilateral mastectomy 1993 Thoracic outlet syndrome resection Melanoma left knee, 1970 with prophylactic lymph node dissection Basal cell carcinoma Hypertension Dyslipidemia Thyroid nodules Ray nods syndrome Lupus Left lower extremity lymphedema Benign cervical polyps Pulmonary embolus Deep vein thrombosis . Past Surgical History Left shoulder arthroscopy Bilateral mastectomy Bronchoscopy Wedge resection of right upper and right middle lobe, right upper lobectomy, right middle lobectomy, mediastinal lymph node dissection Cardiac catheterization 2003 Tonsillectomy Cervical polyp resection 1997 Right carotid endarterectomy with bovine pericardial patch angioplasty 2013 Left rotator cuff repair 2009 Lumbar epidural steroid injections Reported Medications Reported Meds & Active Scripts Active Reported Atorvastatin (Atorvastatin Calcium) 10 Mg Tab 10 Mg PO HS Pamelor (Nortriptyline HCl) 25 Mg Cap 25 Mg PO HS Lasix (Furosemide) 40 Mg Tab 40 Mg PO BID Prednisone 10 Mg Tab 10 Mg PO DAILY Requip (Ropinirole HCl) 0.5 Mg Tab 0.5 Mg PO HS Xanax (Alprazolam) 0.5 Mg Tab 0.5 Mg PO Q4H PRN Glimepiride 1 Mg Tab 1 Mg PO DAILY Take with breakfast or first main meal Ventolin Hfa 18 GM Inh (Albuterol Sulfate) 90 Mcg/Act Aer 1 Puff INH Q4H PRN Aspirin 325 Mg Tab 325 Mg PO DAILY . Current Medications Medications (Trade) Dose Ordered Sig/Lizeth Route Start Time Stop Time Status Last Admin Nicardipine HCl 25 mg/Sodium Chloride 260 ml @ 52 mls/hr TITRATE PRN IV 12/11/17 17:45 12/17/17 06:39 (Xanax) 0.5 mg Q4H PRN PO 12/11/17 19:45 12/15/17 22:04 (Lipitor) 10 mg HS PO 12/11/17 21:00 12/16/17 20:12 (Amaryl) 1 mg DAILY PO 12/12/17 09:00 12/16/17 08:11 (Pamelor) 25 mg HS PO 12/11/17 21:00 12/16/17 20:13 (Deltasone) 10 mg DAILY PO 12/12/17 09:00 12/17/17 08:26 (Requip) 0.5 mg HS PO 12/11/17 21:00 12/16/17 20:13 (NS Flush) 2 ml UNSCH PRN IV FLUSH 12/11/17 19:45 (NS Flush) 2 ml BID IV FLUSH 12/11/17 21:00 12/17/17 08:27 (Tylenol) 650 mg Q6H PRN PO 12/11/17 19:45 12/17/17 09:11 (Morphine Inj) 2 mg Q2H PRN IV PUSH 12/11/17 19:45 12/17/17 06:39 (Zofran Odt) 4 mg Q6H PRN PO 12/11/17 19:45 12/11/17 21:50 (Restoril) 15 mg HS PRN PO 12/11/17 21:00 12/16/17 00:19 (Duoneb Neb) 1 ampule Q2HR NEB PRN INH 12/11/17 19:45 ([facility] Nursing Information) 1 Q361D XX 12/11/17 19:45 12/11/17 19:45 (Chlorhexidine 2% Cloth) Taper DAILY@04 TOP 12/12/17 04:00 12/08/18 03:59 12/17/17 04:00 (Chlorhexidine 2% Cloth) 3 pack UNSCH PRN TOP 12/11/17 19:45 (Monique-Colace) 1 tab BID PO 12/11/17 21:00 12/17/17 08:26 (Milk Of Magnesia Liq) 30 ml Q12H PRN PO 12/11/17 19:45 (Senokot) 17.2 mg Q12H PRN PO 12/11/17 19:45 (Dulcolax Supp) 10 mg DAILY PRN RECTAL 12/11/17 19:45 (Lactulose Liq) 30 ml DAILY PRN PO 12/11/17 19:45 12/17/17 09:13 (D50w (Vial) Inj) 50 ml UNSCH PRN IV PUSH 12/11/17 21:30 (Glucagon Inj) 1 mg UNSCH PRN OTHER 12/11/17 21:30 (Vasotec Inj) 2.5 mg Q6H PRN IV PUSH 12/12/17 10:15 12/16/17 20:13 Sodium Chloride 1,000 ml @ 50 mls/hr Q20H IV 12/13/17 08:45 12/17/17 08:27 (Prinivil) 10 mg Q12HR PO 12/13/17 09:00 12/16/17 20:13 (Catapres) 0.1 mg Q4H PRN PO 12/14/17 09:00 12/16/17 20:13 (Keppra) 500 mg Q12HR PO 12/14/17 09:00 12/17/17 08:26 (NovoLOG SUPPLEMENTAL SCALE) 1 ACHS SLIDING SCALE SQ 12/14/17 12:00 12/14/17 20:59 (Pepcid) 20 mg BID PO 12/15/17 21:00 12/17/17 08:27 (Procardia Xl) 30 mg BID PO 12/17/17 09:00 12/17/17 08:27 (Dilaudid) 0.5 mg Q6H PRN PO 12/16/17 19:30 (Pill Splitter) 1 ea UNSCH PRN OTHER 12/16/17 19:30 Family History Father of an intracerebral bleed at age 66 with a history of hypertension, mother and youngest sister idiopathic hypertrophic subaortic stenosis (IHSS) from which the mother at age 65. She has 2 healthy sisters, one sister and one brother with hypertension. . Substance Use Tobacco: 2 pack a day smoker for 18 years. Quit smoking over 30 years ago. Alcohol: No history. Prescription med abuse: No history. Illicits: No history. . Psychosocial History She was born in [place] but has lived in [place] for over 35 years. She has 2 sisters and 2 brothers with whom she is very close. 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 She was once and is now . She has no children. . Spiritual/Cultural Factors Patient identifies with the Confucianist yaa. . Living Will: Copy in medical record Health Care Surrogate: Copy in medical record Date completed: December 17, 2006 . Health Care Surrogate(s): She named her friend, Geetha Gamez as her primary healthcare surrogate and her sister, Mireille John as her alternate surrogate , . She specifies that both surrogates must agree to withhold or withdraw life support. . Documented care wishes: Living will on chart. . Today's verbally stated goals: Patient unable to state goals. . Family/friends goals: To be determined. Family meeting pending later today. . Ethical and Legal Issues None noted. . Physical Exam Vital Signs Date Time Temp Pulse Resp B/P (MAP) Pulse Ox O2 Delivery O2 Flow Rate FiO2 12/17/17 09:37 96 Nasal Cannula 2.00 12/17/17 06:39 80 110/56 12/17/17 06:00 85 12/17/17 04:00 83 12/17/17 04:00 98.7 86 20 132/65 (87) 97 12/17/17 02:00 89 12/17/17 01:49 81 135/64 12/17/17 00:00 97.9 78 21 140/84 (102) 98 12/17/17 00:00 98 Nasal Cannula 2.00 12/17/17 00:00 98 12/16/17 22:00 98 12/16/17 20:23 89 198/100 12/16/17 20:00 97.8 90 18 198/100 (132) 12/16/17 20:00 98 12/16/17 20:00 92 Room Air 12/16/17 18:00 75 12/16/17 16:00 98.0 68 18 186/98 (127) 99 12/16/17 16:00 68 12/16/17 14:00 75 12/16/17 12:00 98.6 79 23 171/90 (117) 94 12/16/17 12:00 80 Exam CONSTITUTIONAL/GENERAL: This is an adequately nourished patient, in no apparent distress. TUBES/LINES/DRAINS: PIV RFA, De La Cruz. SKIN: No jaundice, rashes, or lesions. Ecchymoses on upper extremities. Mild erythema on medial aspect of right upper arm, no wounds seen anteriorly. Skin temperature appropriate. Not diaphoretic. HEAD: Atraumatic. Normocephalic. EYES: Pupils equal and round and reactive. Extraocular motions intact. No scleral icterus. No injection or drainage. Fundi not examined. ENT: Hearing grossly normal. Nose without bleeding or purulent drainage. Throat without visible erythema, exudates, masses, or lesions. NECK: Trachea midline. Supple, nontender. No palpable thyroid enlargement or nodularity. CARDIOVASCULAR: S1, S2, irregular rhythm, controlled rate, 1/6 systolic ejection murmur, no rub no gallop. RESPIRATORY/CHEST: Symmetric, unlabored respirations. Clear to auscultation. Breath sounds equal bilaterally. No wheezes, rales, or rhonchi. GASTROINTESTINAL: Abdomen soft, non-tender, nondistended. No hepato-splenomegaly , or palpable masses. No guarding. Bowel sounds present. GENITOURINARY: Without palpable bladder distension. De La Cruz catheter in place. MUSCULOSKELETAL: Extremities without clubbing, cyanosis, or edema. Weakness in right lower extremity greater than left lower extremity. LYMPHATICS: No palpable cervical or supraclavicular adenopathy. NEUROLOGICAL: Awake and alert. Intermittently follows commands, requires cueing , intermittently oriented to place, appears oriented to self, intermittently recognizing her sisters. PSYCHIATRIC: No obvious anxiety/depression. no apparent hallucinations or other psychotic thought process. . Diagnostic Tests Laboratory Laboratory Tests Test 12/15/17 05:35 12/17/17 06:12 White Blood Count 11.8 TH/MM3 (4.0-11.0) 18.2 TH/MM3 (4.0-11.0) Red Blood Count 4.07 MIL/MM3 (4.00-5.30) 4.58 MIL/MM3 (4.00-5.30) Hemoglobin 12.0 GM/DL (11.6-15.3) 13.3 GM/DL (11.6-15.3) Hematocrit 37.8 % (35.0-46.0) 41.8 % (35.0-46.0) Mean Corpuscular Volume 92.8 FL (80.0-100.0) 91.3 FL (80.0-100.0) Mean Corpuscular Hemoglobin 29.5 PG (27.0-34.0) 29.1 PG (27.0-34.0) Mean Corpuscular Hemoglobin Concent 31.7 % (32.0-36.0) 31.9 % (32.0-36.0) Red Cell Distribution Width 15.8 % (11.6-17.2) 15.7 % (11.6-17.2) Platelet Count 200 TH/MM3 (150-450) 245 TH/MM3 (150-450) Mean Platelet Volume 8.5 FL (7.0-11.0) 7.6 FL (7.0-11.0) Neutrophils (%) (Auto) 84.2 % (16.0-70.0) 88.2 % (16.0-70.0) Lymphocytes (%) (Auto) 8.6 % (9.0-44.0) 5.7 % (9.0-44.0) Monocytes (%) (Auto) 6.6 % (0.0-8.0) 5.7 % (0.0-8.0) Eosinophils (%) (Auto) 0.4 % (0.0-4.0) 0.2 % (0.0-4.0) Basophils (%) (Auto) 0.2 % (0.0-2.0) 0.2 % (0.0-2.0) Neutrophils # (Auto) 9.9 TH/MM3 (1.8-7.7) 16.1 TH/MM3 (1.8-7.7) Lymphocytes # (Auto) 1.0 TH/MM3 (1.0-4.8) 1.0 TH/MM3 (1.0-4.8) Monocytes # (Auto) 0.8 TH/MM3 (0-0.9) 1.0 TH/MM3 (0-0.9) Eosinophils # (Auto) 0.0 TH/MM3 (0-0.4) 0.0 TH/MM3 (0-0.4) Basophils # (Auto) 0.0 TH/MM3 (0-0.2) 0.0 TH/MM3 (0-0.2) CBC Comment DIFF FINAL DIFF FINAL Differential Comment Blood Urea Nitrogen 11 MG/DL (7-18) Creatinine 0.50 MG/DL (0.50-1.00) Random Glucose 107 MG/DL (74-106) Calcium Level 8.6 MG/DL (8.5-10.1) Magnesium Level 1.9 MG/DL (1.5-2.5) Sodium Level 137 MEQ/L (136-145) Potassium Level 3.8 MEQ/L (3.5-5.1) Chloride Level 103 MEQ/L (98-107) Carbon Dioxide Level 25.1 MEQ/L (21.0-32.0) Anion Gap 9 MEQ/L (5-15) Estimat Glomerular Filtration Rate 122 ML/MIN (>89) . Result Diagram: 12/17/1712 12/17/17 0612 Microbiology Microbiology Date/Time Source Procedure Growth Status 12/14/17 09:30 Urine Clean Catch Urine Culture - Final 50-100,000 CFU/ML MIXED CHER... Complete Imaging Last Impressions Head CT 12/16/17 1020 Signed Impressions: CONCLUSION: 1. Evolving bilateral subarachnoid hemorrhage with progressive encephalomalaci a and edema in the left frontal mid to lower convexities. There is slight incre ased associated mass effect with increased [id number] subfalcine shift measu ring up to 3 mm. 2. Evolving trace intraventricular hemorrhage. 3. No new intercurrent hemorrhage. Abdomen/Pelvis CT 12/12/17 0000 Signed Impressions: CONCLUSION: 1. No abdominal visceral injury. Chest X-Ray 12/11/17 1617 Signed Impressions: CONCLUSION: No evidence of acute airspace disease or significant congestion. Cervical Spine CT 12/11/17 1613 Signed Impressions: CONCLUSION: 1. Right occipital calvarial fracture. 2. Degenerative subluxations and advanced multilevel degenerative changes. Neck CTA 12/11/17 0000 Addendum Impressions: CONCLUSION: 1. No hemodynamically significant stenosis in either carotid artery. 2. Mild narrowing in the left carotid bulb estimated to be 30-40 %. Head CTA 12/11/17 0000 Signed Impressions: CONCLUSION: 1. Right occipital calvarial fracture. 2. No large vessel stenosis or aneurysm. 3. Dominant left vertebral artery. 4. Distal right vertebral artery not seen. Patient/Family Conference Present at Family Conference: Spoke with the family today to include the healthcare surrogate and his sister, Mireille, Sister Castillo, brother Kt and his as well as telephone conference and brothers Mark. We reviewed patient's medical course the current decline in her cognitive status. We reviewed the imaging study showing increased bleeding on the new CAT scan. We reviewed in detail the benefits and burdens of CPR and mechanical ventilation. We also reviewed the patient's prior stated wishes. After extensive discussion, it was the family consensus that at this time, due to her declining status, she would be made a DO NOT RESUSCITATE status. They did however state that should her condition reverse and she become more alert and cognizant, they would consider reversing it to full resuscitation. This information was conveyed to the nurse and the order entered for DNR. . Family Conference Location: Bedside, Telephone Issues Discussed: * Palliative care role, purpose, approach * Additional medical, psychosocial, and spiritual history * Patients general health, functional status, and cognitive changes in the months leading up to the current hospitalization * Patient/family understanding of the current medical problems * Patient/family understanding of prognosis * Patients goals of care as best understood from advance directives and/or conversations and/or values * Current medical treatment options and benefits/burdens of those options * Likely scenarios comparing ongoing aggressive care with a transition to comfort measures only * Questions answered to the best of my ability * Palliative care contact information provided Assessment and Plan Disease Oriented Problem List: (1) Subarachnoid hemorrhage (2) Skull fracture (3) Syncope and collapse (4) Rheumatoid arthritis (5) Diabetes (6) HTN (hypertension) (7) Junctional cardiac arrhythmia Symptom Scale: (1) Confusion (2) Pain, generalized Pertinent Non-Medical Issues Psychosocial:She was born in [place] but has lived in [place] for over 35 years. She has 2 sisters and 2 brothers with whom she is very close. 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 She was once and is now . She has no children. Spiritual: Identifies as an Confucianist Legal:has named her sister Mireille as her healthcare surrogate Ethical issues impacting care: None noted. . Important Contacts Sister: Mireille John , . Prognosis Her prognosis is guarded. She has a subarachnoid hemorrhage which is showing some extension on most recent CT. She remains confused and encephalopathic. She is not capacitated to make decisions on her own and it is not certain if she will regain that capacity. She has multiple comorbidities and is declining in cognitive activity and alertness instead of recovering. She is at elevated risk of continued complications and decline. . Code Status: Full Code (By default) Plan PLAN: Legal decision maker: patient is not capacitated at this time for independent decision-making. She had previously completed a healthcare surrogate naming her sister, Mireille John, as her alternate healthcare surrogate and Geetha Gamez as her primary healthcare surrogate. Geetha has dementia and is unable to serve, so healthcare surrogatcy has defaulted to patient's sister, Mireille, who is readily available, agrees to serve. Goals: To be determined. CODE STATUS: FULL CODE by default SYMPTOMS: * Confusion: This is new in onset and likely related to her traumatic brain injury and subarachnoid hemorrhage. There is no prior history of altered mental status or confusion per my discussion with her sisters, Mireille and Castillo. At this time neurosurgery is following and monitoring CT scans for progression. She is currently receiving prednisone for edema and Keppra as seizure prophylaxis. * Pain: She winces in pain with any movement of either arm. She acknowledges pain in her left shoulder and her right elbow. She is receiving acetaminophen and morphine for discomfort, but does have hydromorphone available if needed. She has received 1 dose of morphine in the last 24 hours of 2 mg IV and 1 dose of Tylenol 650 mg p.o. in the last 24 hours. She remains uncomfortable with movement. Would recommend occupational therapy evaluation and treatment once cleared by neurosurgery and critical care. SUMMARY This is a 71-year-old female who suffered a syncopal episode and inability to control her right foot, resulting in a fall with a subarachnoid hemorrhage. CT shows some extension of that today. Neurosurgery is following. Patient is not capacitated for decision-making but does have available and willing family. Her sister Mireille is her healthcare surrogate and does have baseline medical knowledge assisting her in understanding and communicating with her family. At this time the patient's prognosis is guarded and is at risk for continued complications and decline. Family meeting scheduled for later today to discuss goals of care and CODE STATUS. Palliative care will continue to follow the patient during hospital course as condition evolves, to assist patient/decision-maker with understanding of their medical conditions, weighing benefits/burdens of treatment options, for clarification of goals of treatment. Additionally will assist with any symptoms of palliative concern. . Thank you for the opportunity to participate in the care of Ms. John. Attestation To help prompt me to consider important information that might be impacting today's encounter and assessment, information from prior notes written by myself or my colleagues may have been "brought forward" into today's note. My signature on this note, however, is an attestation that I personally performed the exam, history, and/or decision-making noted today, and, unless otherwise indicated, the interactions with patient, family, and staff as well as the review of records all occurred today. I also attest that the listed assessment and stated plan reflect my best clinical judgment today based on the combination of historical information, prior notes, and today's exam/ interactions. When time spent is documented, it refers only to time spent today by the signer, or if indicated, combined time spent today by collaborating physician/nurse practitioner. . Laina Hilton Dec 17, 2017 11:09 am
--- NOTE | 2017-12-17 19:11 | HHI.PR ---
Subjective Remarks No new complaints. Objective Vitals Vital Signs Date Time Temp Pulse Resp B/P (MAP) Pulse Ox O2 Delivery O2 Flow Rate FiO2 12/17/17 18:00 88 12/17/17 16:03 72 12/17/17 16:00 98.3 79 41 135/64 (87) 93 12/17/17 14:00 78 12/17/17 12:00 74 12/17/17 12:00 98.2 74 21 117/58 (77) 92 12/17/17 10:00 81 12/17/17 09:37 96 Nasal Cannula 2.00 12/17/17 08:00 100.5 85 24 132/68 (89) 91 12/17/17 08:00 85 12/17/17 07:00 92 Nasal Cannula 2.00 12/17/17 06:39 80 110/56 12/17/17 06:00 85 12/17/17 04:00 83 12/17/17 04:00 98.7 86 20 132/65 (87) 97 12/17/17 02:00 89 12/17/17 01:49 81 135/64 12/17/17 00:00 97.9 78 21 140/84 (102) 98 12/17/17 00:00 98 Nasal Cannula 2.00 12/17/17 00:00 98 12/16/17 22:00 98 12/16/17 20:23 89 198/100 12/16/17 20:00 97.8 90 18 198/100 (132) 12/16/17 20:00 98 12/16/17 20:00 92 Room Air 12/17/17 12/17/17 12/18/17 15:00 23:00 07:00 Intake Total 120 ml Output Total 750 ml Balance -630 ml Intake Oral 120 ml Output Urine Total 750 ml # Bowel Movements 0 Result Diagram: 12/17/1712 12/17/17611 Imaging Last Impressions Head CT 12/13/17 0000 Signed Impressions: CONCLUSION: 1. Resolving bilateral subarachnoid hemorrhage. Developing encephalomalacia in the left frontal lobe with mild localized mass effect. No significant change i n midline shift of the septum pellucidum. No new hemorrhage. Stable calvarial f racture in the right occipital bone. Abdomen/Pelvis CT 12/12/17 0000 Signed Impressions: CONCLUSION: 1. No abdominal visceral injury. Chest X-Ray 12/11/17 1617 Signed Impressions: CONCLUSION: No evidence of acute airspace disease or significant congestion. Cervical Spine CT 12/11/17 1613 Signed Impressions: CONCLUSION: 1. Right occipital calvarial fracture. 2. Degenerative subluxations and advanced multilevel degenerative changes. Neck CTA 12/11/17 0000 Addendum Impressions: CONCLUSION: 1. No hemodynamically significant stenosis in either carotid artery. 2. Mild narrowing in the left carotid bulb estimated to be 30-40 %. Head CTA 12/11/17 0000 Signed Impressions: CONCLUSION: 1. Right occipital calvarial fracture. 2. No large vessel stenosis or aneurysm. 3. Dominant left vertebral artery. 4. Distal right vertebral artery not seen. Objective Remarks GENERAL: This is a well-nourished, well-developed patient, in no apparent distress. CARDIOVASCULAR: Regular rate and rhythm without murmurs, gallops, or rubs. RESPIRATORY: Clear to auscultation. Breath sounds equal bilaterally. No wheezes , rales, or rhonchi. GASTROINTESTINAL: Abdomen soft, non-tender, nondistended. Normal active bowel sounds MUSCULOSKELETAL: Extremities without clubbing, cyanosis, or edema. NEURO: Alert & Oriented x4 to person, place, time, situation. Moves all ext x4 Skin: wound at posterior scalp erythema at both forearms A/P Problem List: (1) Subarachnoid hemorrhage ICD Codes: I60.9 - Nontraumatic subarachnoid hemorrhage, unspecified Status: Acute Plan: 1. syncope/collapse 2. SAH/basilar skull fx 3. junctional rhythm 4. htn 5. diabetes 6. RA/chronic steroids - continue telemetry. - Case d/w Dr. Jones, 12/16. NO EP study at this time. Continue to observe clinical status. - Case d/w Dr. Le, 12/16. May require several week before clinical improvement. - lisinopril - change norvasc to procardia XL 30mg BID - Repeat CT brain per NSX - PT - keppra - SSI (2) Scalp wound ICD Codes: S01.00XA - Unspecified open wound of scalp, initial encounter Status: Acute Plan: - start clindamycin - obtain wound care consult (3) Cellulitis of forearm ICD Codes: L03.119 - Cellulitis of unspecified part of limb Status: Acute Plan: - start clindamycin (4) Junctional cardiac arrhythmia ICD Codes: I49.8 - Other specified cardiac arrhythmias Status: Acute (5) Skull fracture ICD Codes: S02.91XA - Unspecified fracture of skull, initial encounter for closed fracture Status: Acute (6) Syncope and collapse ICD Codes: R55 - Syncope and collapse Status: Acute (7) HTN (hypertension) ICD Codes: I10 - Essential (primary) hypertension Status: Chronic (8) Rheumatoid arthritis ICD Codes: M06.9 - Rheumatoid arthritis, unspecified Status: Chronic (9) Diabetes ICD Codes: E11.9 - Type 2 diabetes mellitus without complications Status: Chronic Problem Qualifiers (1) Scalp wound: (2) Skull fracture: Qualified Codes: S02.119B - Unspecified fracture of occiput, initial encounter for open fracture Dany Licea DO Dec 17, 2017 19:11
--- NOTE | 2017-12-17 20:18 | RADRPT ---
EXAM DATE: 12/17/2017 8:13 PM EDT AGE/SEX: 71 years / Female INDICATIONS: Elevated WBC CLINICAL DATA: This is the patient's subsequent encounter. Patient reports that signs and symptoms h ave been present for 4 - 6 days and indicates a pain score of Nonresponsive. MEDICAL/SURGICAL HISTORY: Non-responsive. Non-responsive. [place] [facility] [place]. . FINDINGS: A single AP view of the chest demonstrates the slight elevation right hemidiaphragm. Cardiomegaly. Mi nimal left basilar density. The cardiomediastinal contours are unremarkable. Osseous structures are intact. Clips in the left axilla and left chest wall, stable. CONCLUSION: Minimal left basilar density could be atelectasis or infiltrate. Electronically signed by: Roberto Auguste MD 12/17/2017 8:16 PM EDT
[2017-12-17] MEDS: CLINDAMYCIN 600 MG/NS PREMIX 50 ML IV SCH (21:00)
[2017-12-17] MEDS: ATORVASTATIN 10 MG TAB PO SCH (22:02)
[2017-12-17] MEDS: NORTRIPTYLINE HCL 25 MG CAP PO SCH (22:11)
[2017-12-18] VITALS (12 sets, daily range): BP systolic 122–157; BP diastolic 58–81; PULSE 69–89; RESP 16–22; TEMP 98.2–99.3; O2SAT 93–98
[2017-12-18] MEDS: CLINDAMYCIN 600 MG/NS PREMIX 50 ML IV SCH ×4 (03:26→21:45)
[2017-12-18] MEDS: CHLORHEXIDINE GLUCONATE 2 % 1 PACK (2 CLOTHS) TOP SCH (04:00)
[2017-12-18 04:14] LABS: AMORPHOUS SEDIMENT, URINE RARE; BACTERIA, URINE MANY /hpf; BILIRUBIN, URINE NEG (NEG); BLOOD, URINE MOD (NEG); GLUCOSE,URINE NEG (NEG); KETONE, URINE TRACE mg/dL (NEG); MUCUS URINE FEW /lpf (OCC); NITRITE,URINE NEG (NEG); URINE COLOR YELLOW (YELLW/STRAW); URINE LEUKOCYTE ESTERASE LARGE (NEG); WHITE BLOOD CELL CLUMPS MANY
[2017-12-18 06:23] LABS: AUTOMATED NEUTROPHIL # 13.6 TH/MM3 (1.8-7.7); BASOPHIL # 0.1 TH/MM3 (0-0.2); BASOPHIL % 0.4 % (0.0-2.0); EOSINOPHIL # 0.1 TH/MM3 (0-0.4); EOSINOPHIL % 0.4 % (0.0-4.0); HEMATOCRIT 41.1 % (35.0-46.0); HEMOGLOBIN 13.1 GM/DL (11.6-15.3); LYMPH % 6.5 % (9.0-44.0); MEAN CELL VOLUME 91.4 FL (80.0-100.0); MEAN CORPUSCULAR HEMOGLOBIN 29.1 PG (27.0-34.0); MEAN CORPUSCULAR HGB CONC 31.8 % (32.0-36.0); MEAN PLATELET VOLUME 8.1 FL (7.0-11.0); MONO % 5.4 % (0.0-8.0); MONOCYTE # 0.8 TH/MM3 (0-0.9); NEUT % 87.3 % (16.0-70.0); PLATELET COUNT 245 TH/MM3 (150-450); RED BLOOD COUNT 4.49 MIL/MM3 (4.00-5.30); RED CELL DISTRIBUTION WIDTH 15.9 % (11.6-17.2); WHITE BLOOD COUNT 15.6 TH/MM3 (4.0-11.0)
[2017-12-18 06:47] LABS: BICARBONATE 26.4 MEQ/L (21.0-32.0); CREATININE 0.5 MG/DL (0.50-1.00); MAGNESIUM 2.1 MG/DL (1.5-2.5)
[2017-12-18] MEDS: INSULIN ASPART SUPPLEMENTAL SCALE SQ SCH ×4 (08:00→21:45)
[2017-12-18] MEDS: GLIMEPIRIDE 1 MG TAB PO SCH (08:20)
[2017-12-18] MEDS: SODIUM CHLOR 0.9% 1000 ML INJ 1,000 ML IV SCH (08:45)
[2017-12-18] MEDS: FAMOTIDINE 20 MG TAB PO SCH (09:00)
[2017-12-18] MEDS: DOCUSATE SODIUM 50 MG/SENNA 8.6 MG TAB PO SCH (09:00)
[2017-12-18] MEDS: SODIUM CHLORIDE 0.9% FLUSH 10 ML FLUSH IV FLUSH SCH ×2 (09:00→21:30)
[2017-12-18] MEDS: levETIRAcetam 500 MG TAB PO SCH (09:00)
[2017-12-18] MEDS: LACTULOSE SYRUP 20 GM/30 ML CUP PO SCH (09:00)
[2017-12-18] MEDS: NIFEdipine 30 MG SUSTAINED RELEASE TAB PO SCH (09:00)
[2017-12-18] MEDS: LISINOPRIL 10 MG TAB PO SCH (09:00)
[2017-12-18] MEDS: predniSONE 10 MG TAB PO SCH (09:00)
--- NOTE | 2017-12-18 11:01 | HHI.NSPN ---
History Chief Complaint: None Interval History 12/11: 71 yo fall secondary to probable syncopal episode 12/12: The patient is drowsy when seen this morning. She awakens to voice and briefly participates before drifting back off to sleep. She does have some confusion and it appears that she may have either some receptive aphasia. Sensation intact upon evaluation. Mild left upper extremity weakness due to pain secondary to rotator cuff injury, and normal to the other extremities. She went for a repeat CT brain this morning which was without change. 12/13: Or new problems reported. No complaint of headache today. Out of bed in chair earlier this morning without difficulty Poor oral intake. No nausea or emesis 12/14: Pt awakens but is lethargic. Pupils 3mm bilaterally. She is on Cardene drip. She follows commands. Moves all 4 extremities. NC 2L. 12/15: The patient is awake and visiting with her family when seen. She reports that she developed a headache and dizziness when she got up earlier. Nursing reports that the patient is weak. She denied any pain, numbness or tingling to the extremities. Her confusion is improved upon evaluation. She continues to have weakness to the left upper extremity due to her rotator cuff injury. She also is weaker to both quadriceps upon testing. She is not on the nicardipine drip when seen although her systolic blood pressure was elevated. Also her heart rate was elevated. Nursing does report that Cardiology plans to do further testing mid week. 12/16: This morning the patient is drowsy laying in bed. She has family at the bedside. She awakens to voice and her affect is flat this morning. She does say she has a slight headache at present and has had dizziness when she gets up. She endorsed numbness to the lower extremities today. When asked again about the numbness to the lower extremities she states that it comes from the base of the skull up to the top of the head and disappears. Also it isn't there all the time. She states that this started after she came into the hospital. She is oriented to person, place and time upon evaluation. Her upper extremity exam is without change from yesterday. She has decreased sensation and weakness to the lower extremities. She is not able to hold the lower legs straight upon testing. 12/17: When seen this morning the patient is asleep but awakens to voice. She does interact but does requires coaxing at times. She drifts back off to sleep quickly. She denied any headache or dizziness. She continues to have pain to the left shoulder joint and now to the right elbow. She follows some commands. She participates to a limited degree in motor testing. Palliative Care is at the bedside to evaluate the patient. She went for a CT brain yesterday which demonstrated evolving SAH bilaterally and progressing encephalomalacia and edema. Also with slight increase in mass effect and subfalcine shift. Evolving intraventricular haemorrhage. No new haemorrhage noted. 12/18: The patient is asleep but awakens to voice. She had no complaints, denying headache, dizziness or any extremity pain, numbness or tingling. She participates better in her evaluation this morning but did have difficulty following some commands. She does have some confusion and thinks she is in [place] but knows she is in the intensive care unit. Exam Results 12/16/17 12/16/17 12/17/17 12/17/17 12/18/17 12/18/17 06:00 18:00 06:00 18:00 06:00 18:00 Intake Total 900 ml 546 ml 60 ml Output Total 3050 ml 2950 ml 950 ml Balance -2150 ml -2404 ml -890 ml Intake Oral 300 ml 120 ml 60 ml IV Total 600 ml 426 ml Output Urine Total 3050 ml 2950 ml 950 ml # Bowel Movements 0 0 Vital Signs Date Time Temp Pulse Resp B/P (MAP) Pulse Ox O2 Delivery O2 Flow Rate FiO2 12/18/17 10:00 89 12/18/17 08:00 96 Room Air 12/18/17 08:00 82 12/18/17 06:00 86 12/18/17 04:00 98.2 80 22 148/78 (101) 93 12/18/17 04:00 84 12/18/17 02:00 80 12/18/17 00:21 96 12/18/17 00:00 98.2 80 22 148/78 (101) 93 12/18/17 00:00 84 12/17/17 22:00 85 12/17/17 20:00 98.4 84 26 147/73 (97) 93 12/17/17 20:00 84 12/17/17 19:00 93 Room Air 12/17/17 18:00 88 12/17/17 16:03 72 12/17/17 16:00 98.3 79 41 135/64 (87) 93 12/17/17 14:00 78 12/17/17 12:00 74 12/17/17 12:00 98.2 74 21 117/58 (77) 92 12/17/17 10:00 81 12/17/17 09:37 96 Nasal Cannula 2.00 12/17/17 08:00 100.5 85 24 132/68 (89) 91 12/17/17 08:00 85 12/17/17 07:00 92 Nasal Cannula 2.00 12/17/17 06:39 80 110/56 12/17/17 06:00 85 12/17/17 04:00 83 12/17/17 04:00 98.7 86 20 132/65 (87) 97 12/17/17 02:00 89 12/17/17 01:49 81 135/64 12/17/17 00:00 97.9 78 21 140/84 (102) 98 12/17/17 00:00 98 Nasal Cannula 2.00 12/17/17 00:00 98 Nasal Cannula 2.00 12/17/17 00:00 98 12/16/17 22:00 98 12/16/17 20:23 89 198/100 12/16/17 20:00 97.8 90 18 198/100 (132) 12/16/17 20:00 98 12/16/17 20:00 92 Room Air 12/16/17 18:00 75 12/16/17 16:00 98.0 68 18 186/98 (127) 99 12/16/17 16:00 68 12/16/17 14:00 75 12/16/17 12:00 98.6 79 23 171/90 (117) 94 12/16/17 12:00 80 12/16/17 10:00 83 12/16/17 08:16 97 21 12/16/17 08:00 109 12/16/17 08:00 98.0 114 16 172/91 (118) 94 12/16/17 07:00 94 Room Air 12/16/17 06:00 73 12/16/17 04:02 98 Nasal Cannula 2.00 12/16/17 04:00 72 12/16/17 04:00 98.7 72 20 174/83 (113) 94 12/16/17 02:00 70 12/16/17 00:00 98.9 73 23 172/87 (115) 100 12/16/17 00:00 73 12/15/17 23:05 99 Nasal Cannula 2.00 12/15/17 23:05 99 Nasal Cannula 2.00 12/15/17 22:00 73 12/15/17 20:00 98.7 72 26 153/73 (99) 100 12/15/17 20:00 68 12/15/17 18:00 68 12/15/17 16:00 66 12/15/17 16:00 98.1 66 18 136/69 (91) 100 12/15/17 14:00 71 12/15/17 12:00 68 12/15/17 12:00 98.1 68 17 151/82 (105) 100 Physical Examination GENERAL: Asleep in bed but awakens to voice. Affect essentially normal. Readily interacts but requires coaxing at times. No apparent distress. HEENT: Normocephalic, atraumatic. PERRLA 2 mm, EOMI. MMM & pink, tongue midline to protrusion. MUSCULOSKELETAL: CAGLE to command. No evident clubbing or deformity. TTP at the left shoulder joint due to a rotator cuff injury. NEUROLOGICAL: Asleep but awakens to voice. Oriented to person & time, knows she is in ICU but thinks it is in [place]. Speech clear but w/some confusion. Follows some simple commands but had difficulty w/others even though demonstrated. Does require coaxing at times to participate. CN II through XII appear grossly intact. Sensation intact to light touch to all extremities. Motor strength: LUE is 4+ to 5/5 to biceps & triceps, 4+/5 to hand grasp, deltoid not tested due to rotator cuff injury. RUE is 4+ to 5/5 to deltoid, biceps & triceps, 4+/5 hand grasp. LLE is 4+/5 iliopsoas, 4+ to 5/5 quadriceps, 4 to 4+/5 hamstring, 5/5 tibialis anterior, 5/5 gastrocnemius and 5/5 extensor hallucis longus. RLE is 4+/5 iliopsoas, 4+ to 5/5 quadriceps, 4+/5 hamstring, 5/5 tibialis anterior, 5/5 gastrocnemius and 5/5 extensor hallucis longus. Lab, Micro, Other Results Recent Impressions Chest X-Ray 12/17/17 0000 Signed Impressions: CONCLUSION: Minimal left basilar density could be atelectasis or infiltrate. Head CT 12/16/17 1020 Signed Impressions: CONCLUSION: 1. Evolving bilateral subarachnoid hemorrhage with progressive encephalomalaci a and edema in the left frontal mid to lower convexities. There is slight incre ased associated mass effect with increased [id number] subfalcine shift measu ring up to 3 mm. 2. Evolving trace intraventricular hemorrhage. 3. No new intercurrent hemorrhage. Laboratory Tests Test 12/17/17 06:12 12/18/17 04:00 12/18/17 04:49 White Blood Count 18.2 TH/MM3 15.6 TH/MM3 Red Blood Count 4.58 MIL/MM3 4.49 MIL/MM3 Hemoglobin 13.3 GM/DL 13.1 GM/DL Hematocrit 41.8 % 41.1 % Mean Corpuscular Volume 91.3 FL 91.4 FL Mean Corpuscular Hemoglobin 29.1 PG 29.1 PG Mean Corpuscular Hemoglobin Concent 31.9 % 31.8 % Red Cell Distribution Width 15.7 % 15.9 % Platelet Count 245 TH/MM3 245 TH/MM3 Mean Platelet Volume 7.6 FL 8.1 FL Neutrophils (%) (Auto) 88.2 % 87.3 % Lymphocytes (%) (Auto) 5.7 % 6.5 % Monocytes (%) (Auto) 5.7 % 5.4 % Eosinophils (%) (Auto) 0.2 % 0.4 % Basophils (%) (Auto) 0.2 % 0.4 % Neutrophils # (Auto) 16.1 TH/MM3 13.6 TH/MM3 Lymphocytes # (Auto) 1.0 TH/MM3 1.0 TH/MM3 Monocytes # (Auto) 1.0 TH/MM3 0.8 TH/MM3 Eosinophils # (Auto) 0.0 TH/MM3 0.1 TH/MM3 Basophils # (Auto) 0.0 TH/MM3 0.1 TH/MM3 CBC Comment DIFF FINAL DIFF FINAL Differential Comment Blood Urea Nitrogen 11 MG/DL 9 MG/DL Creatinine 0.50 MG/DL 0.50 MG/DL Random Glucose 107 MG/DL 68 MG/DL Calcium Level 8.6 MG/DL 9.0 MG/DL Magnesium Level 1.9 MG/DL 2.1 MG/DL Sodium Level 137 MEQ/L 141 MEQ/L Potassium Level 3.8 MEQ/L 3.8 MEQ/L Chloride Level 103 MEQ/L 104 MEQ/L Carbon Dioxide Level 25.1 MEQ/L 26.4 MEQ/L Anion Gap 9 MEQ/L 11 MEQ/L Estimat Glomerular Filtration Rate 122 ML/MIN 122 ML/MIN Urine Color YELLOW Urine Turbidity TURBID Urine pH 8.0 Urine Specific Ferdinand 1.006 Urine Protein NEG mg/dL Urine Glucose (UA) NEG mg/dL Urine Ketones TRACE mg/dL Urine Occult Blood MOD Urine Nitrite NEG Urine Bilirubin NEG Urine Urobilinogen 2.0 mg/dL Urine Leukocyte Esterase LARGE Urine WBC /hpf Urine WBC Clumps MANY Urine Amorphous Sediment RARE Urine Bacteria MANY /hpf Urine Mucus FEW /lpf Microscopic Urinalysis Comment CATH-CULTURE IND Orders Procedure Category Date Status Time Physician Name Changes ADMITTING 12/15/17 Transmitted Amlodipine (Norvasc) MED 12/15/17 Complete 19:00 Lisinopril (Prinivil) MED 12/16/17 Complete 09:00 Ct Brain W/O Iv RADCT 12/16/17 Resulted Contrast(Rout) 10:20 Nifedipine Sr MED 12/16/17 Complete (Procardia Xl) 21:00 Complete Blood Count LAB 12/17/17 Complete With Diff 06:00 Basic Metabolic Panel LAB 12/17/17 Complete (Bmp) 06:00 Magnesium (Mg) LAB 12/17/17 Complete 06:00 Nifedipine Sr MED 12/16/17 Complete (Procardia Xl) 19:00 Diet Regular Basic DIET 12/16/17 Transmitted Dinner Consult Palliative CONS 12/16/17 Transmitted Care Acetamin-Hydrocod MED 12/16/17 Complete 325-5 Mg (Zwingle 5-325 19:00 Nifedipine Sr MED 12/17/17 In Process (Procardia Xl) 09:00 Nifedipine Sr MED 12/16/17 Complete (Procardia Xl) 19:00 (Hub Use Only)Inp Phy CONS 12/16/17 Transmitted Cons/Ref Hydromorphone MED 12/16/17 In Process (Dilaudid) 19:30 Pill Splitter (Pill MED 12/16/17 In Process Splitter) 19:30 Code Status CODE 12/17/17 Transmitted 16:25 Clindamycin 600 Mg/Ns MED 12/17/17 In Process Premix (Cleocin 60 21:00 Complete Blood Count LAB 12/18/17 Complete With Diff 06:00 Basic Metabolic Panel LAB 12/18/17 Complete (Bmp) 06:00 Magnesium (Mg) LAB 12/18/17 Complete 06:00 Urinalysis - C+S If LAB 12/17/17 Complete Indicated 19:09 Specimen To Be ROSA 12/17/17 In Process Collected 19:09 Chest, Single Ap RADDIAG 12/17/17 Resulted Consult Wound / CONS 12/17/17 Transmitted Ostomy Nurse Lactulose Liq MED 12/18/17 In Process (Lactulose Liq) 09:00 Urine Culture SOFYA 12/18/17 In Process 04:00 Vital Signs Date Time Temp Pulse Resp B/P (MAP) Pulse Ox O2 Delivery O2 Flow Rate FiO2 12/18/17 10:00 89 12/18/17 08:00 96 Room Air 12/18/17 08:00 82 12/18/17 06:00 86 12/18/17 04:00 98.2 80 22 148/78 (101) 93 12/18/17 04:00 84 12/18/17 02:00 80 12/18/17 00:21 96 12/18/17 00:00 98.2 80 22 148/78 (101) 93 12/18/17 00:00 84 12/17/17 22:00 85 12/17/17 20:00 98.4 84 26 147/73 (97) 93 12/17/17 20:00 84 12/17/17 19:00 93 Room Air 12/17/17 18:00 88 12/17/17 16:03 72 12/17/17 16:00 98.3 79 41 135/64 (87) 93 12/17/17 14:00 78 12/17/17 12:00 74 12/17/17 12:00 98.2 74 21 117/58 (77) 92 12/17/17 10:00 81 12/17/17 09:37 96 Nasal Cannula 2.00 12/17/17 08:00 100.5 85 24 132/68 (89) 91 12/17/17 08:00 85 12/17/17 07:00 92 Nasal Cannula 2.00 12/17/17 06:39 80 110/56 12/17/17 06:00 85 12/17/17 04:00 83 12/17/17 04:00 98.7 86 20 132/65 (87) 97 12/17/17 02:00 89 12/17/17 01:49 81 135/64 12/17/17 00:00 97.9 78 21 140/84 (102) 98 12/17/17 00:00 98 Nasal Cannula 2.00 12/17/17 00:00 98 Nasal Cannula 2.00 12/17/17 00:00 98 12/16/17 22:00 98 12/16/17 20:23 89 198/100 12/16/17 20:00 97.8 90 18 198/100 (132) 12/16/17 20:00 98 12/16/17 20:00 92 Room Air 12/16/17 18:00 75 12/16/17 16:00 98.0 68 18 186/98 (127) 99 12/16/17 16:00 68 12/16/17 14:00 75 12/16/17 12:00 98.6 79 23 171/90 (117) 94 12/16/17 12:00 80 12/16/17 10:00 83 12/16/17 08:16 97 21 12/16/17 08:00 109 12/16/17 08:00 98.0 114 16 172/91 (118) 94 12/16/17 07:00 94 Room Air 12/16/17 06:00 73 12/16/17 04:02 98 Nasal Cannula 2.00 12/16/17 04:00 72 12/16/17 04:00 98.7 72 20 174/83 (113) 94 12/16/17 02:00 70 12/16/17 00:00 98.9 73 23 172/87 (115) 100 12/16/17 00:00 73 12/15/17 23:05 99 Nasal Cannula 2.00 12/15/17 23:05 99 Nasal Cannula 2.00 12/15/17 22:00 73 12/15/17 20:00 98.7 72 26 153/73 (99) 100 12/15/17 20:00 68 12/15/17 18:00 68 12/15/17 16:00 66 12/15/17 16:00 98.1 66 18 136/69 (91) 100 12/15/17 14:00 71 12/15/17 12:00 68 12/15/17 12:00 98.1 68 17 151/82 (105) 100 Medical Decision Making Impression and Plan Impression: TBI - probable fall secondary to syncopal episode Occipital skull fracture Patient is fair this morning. She had no complaints. Improved orientation but still w/some confusion. Cranial Nerves appear intact. No sensory deficits. Motor strength essentially normal but left deltoid not tested due to injury. Past 24 hrs: 100.5 yesterday morning. SBP w/i range. Reviewed labs for today. Decrease in leukocytosis. Sodium 141. CT brain demonstrated evolving bilateral SAH w/progressing encephalomalacia & edema to left frontal lobe, slight increase in mass effect w/ 3 mm onil-gu-[id number] subfalcine shift; evolving trace IVH; no new haemorrhage noted. Plan: Primary & critical care management per Donor Specialist. Stat CT for any decline in neuro status. Seizure prophylaxis x7d. Monitor serum sodium. Maintain SBP between 110 and 150 mm Hg. Hold pharmacologic DVT prophylaxis. Mechanical DVT prophylaxis. Stress ulcer prophylaxis. Patient may be transferred to a regular med/surg floor from Neurosurgery's perspective. Barry Macdonald Dec 18, 2017 11:01
[2017-12-18] MEDS: ACETAMINOPHEN 325 MG TAB PO PRN (15:41)
[2017-12-18] MEDS ORDERED: COLLAGENASE OINT 30 GM TUBE TOPICAL SCH (16:15)
--- NOTE | 2017-12-18 16:18 | PD.WCN.NOT ---
Wound Consult Description: Received consult from Lexi Shabazz for wound management of posterior scalp Communicated with: MICHELE Argueta and Doctor Vinayak Recommendation: -CLEANSE WOUND TO POSTERIOR SCALP WITH NORMAL SALINE ONLY AND PAT DRY -APPLY SANTYL NICKLY THICKNESS TO WOUND BED ONLY WITH SALINE MOISTENED 2X2 GAUZE PAD -COVER WITH DRY 4X4 GAUZE PADS OR ABD PAD, SECURE DRESSING WITH SURGICAL CAP -CHANGE DRESSING DAILY Additional Information: Patient seen on [facility] for evaluation of wound to posterior scalp. Patient' s head was positioned with the assistance of MICHELE Argueta, patient's sister and customs entry writer off pillow to reveal wound to posterior scalp. Wound presents with ~30% yellow loosely adherent slough and ~80% pink tissue. No induration or erythema is noted to periwound. Wound drainage is minimal and serous without odor. Cleansed wound with normal saline and patted dry Applied dry gauze 4x4 gauze pad over wound and secured with surgical cap. RN to apply dressing as recommended above when supplies arrive. Bethany Mata [facility] Dec 18, 2017 16:18
--- NOTE | 2017-12-18 16:59 | HHI.PR ---
Subjective Remarks No new complaints. Objective Vitals Vital Signs Date Time Temp Pulse Resp B/P (MAP) Pulse Ox O2 Delivery O2 Flow Rate FiO2 12/18/17 16:00 77 12/18/17 16:00 98.7 77 20 139/81 (100) 96 12/18/17 14:00 69 12/18/17 12:00 98.7 72 17 122/58 (79) 96 12/18/17 12:00 72 12/18/17 10:00 89 12/18/17 08:00 96 Room Air 12/18/17 08:00 98.4 71 16 157/67 (97) 96 12/18/17 08:00 82 12/18/17 06:00 86 12/18/17 04:00 98.2 80 22 148/78 (101) 93 12/18/17 04:00 84 12/18/17 02:00 80 12/18/17 00:21 96 12/18/17 00:00 98.2 80 22 148/78 (101) 93 12/18/17 00:00 84 12/17/17 22:00 85 12/17/17 20:00 98.4 84 26 147/73 (97) 93 12/17/17 20:00 84 12/17/17 19:00 93 Room Air 12/17/17 18:00 88 Result Diagram: 12/18/17 0449 12/18/17 0449 Imaging Last Impressions Head CT 12/13/17 0000 Signed Impressions: CONCLUSION: 1. Resolving bilateral subarachnoid hemorrhage. Developing encephalomalacia in the left frontal lobe with mild localized mass effect. No significant change i n midline shift of the septum pellucidum. No new hemorrhage. Stable calvarial f racture in the right occipital bone. Abdomen/Pelvis CT 12/12/17 0000 Signed Impressions: CONCLUSION: 1. No abdominal visceral injury. Chest X-Ray 12/11/17 1617 Signed Impressions: CONCLUSION: No evidence of acute airspace disease or significant congestion. Cervical Spine CT 12/11/17 1613 Signed Impressions: CONCLUSION: 1. Right occipital calvarial fracture. 2. Degenerative subluxations and advanced multilevel degenerative changes. Neck CTA 12/11/17 0000 Addendum Impressions: CONCLUSION: 1. No hemodynamically significant stenosis in either carotid artery. 2. Mild narrowing in the left carotid bulb estimated to be 30-40 %. Head CTA 12/11/17 0000 Signed Impressions: CONCLUSION: 1. Right occipital calvarial fracture. 2. No large vessel stenosis or aneurysm. 3. Dominant left vertebral artery. 4. Distal right vertebral artery not seen. Objective Remarks GENERAL: This is a well-nourished, well-developed patient, in no apparent distress. CARDIOVASCULAR: Regular rate and rhythm without murmurs, gallops, or rubs. RESPIRATORY: Clear to auscultation. Breath sounds equal bilaterally. No wheezes , rales, or rhonchi. GASTROINTESTINAL: Abdomen soft, non-tender, nondistended. Normal active bowel sounds MUSCULOSKELETAL: Extremities without clubbing, cyanosis, or edema. NEURO: Alert & Oriented x4 to person, place, time, situation. Moves all ext x4 Skin: wound at posterior scalp erythema at both forearms A/P Problem List: (1) Subarachnoid hemorrhage ICD Codes: I60.9 - Nontraumatic subarachnoid hemorrhage, unspecified Status: Acute Plan: 1. syncope/collapse 2. SAH/basilar skull fx 3. junctional rhythm 4. htn 5. diabetes 6. RA/chronic steroids - continue telemetry. - Case d/w Dr. Jones, 12/16. NO EP study at this time. Continue to observe clinical status. - Case d/w Dr. Le, 12/16. May require several week before clinical improvement. - lisinopril - change norvasc to procardia XL 30mg BID - Repeat CT brain per NSX - PT - keppra - SSI (2) Scalp wound ICD Codes: S01.00XA - Unspecified open wound of scalp, initial encounter Status: Acute Plan: - start clindamycin - obtain wound care consult (3) Cellulitis of forearm ICD Codes: L03.119 - Cellulitis of unspecified part of limb Status: Acute Plan: - start clindamycin (4) UTI (lower urinary tract infection) ICD Codes: N39.0 - Urinary tract infection, site not specified Status: Acute Plan: - abnormal UA - await urine Culture - afebrile - leukocytosis improving, WBC 15.6 (12/18) - pt started on clindamycin (5) Junctional cardiac arrhythmia ICD Codes: I49.8 - Other specified cardiac arrhythmias Status: Acute (6) Skull fracture ICD Codes: S02.91XA - Unspecified fracture of skull, initial encounter for closed fracture Status: Acute (7) Syncope and collapse ICD Codes: R55 - Syncope and collapse Status: Acute (8) HTN (hypertension) ICD Codes: I10 - Essential (primary) hypertension Status: Chronic (9) Rheumatoid arthritis ICD Codes: M06.9 - Rheumatoid arthritis, unspecified Status: Chronic (10) Diabetes ICD Codes: E11.9 - Type 2 diabetes mellitus without complications Status: Chronic Problem Qualifiers (1) Scalp wound: (2) Skull fracture: Qualified Codes: S02.119B - Unspecified fracture of occiput, initial encounter for open fracture Dany Licea DO Dec 18, 2017 16:59
[2017-12-18] MEDS ORDERED: LORazepam 2 MG/ML VIAL IV PUSH PRN (17:15)
--- NOTE | 2017-12-18 17:16 | HHI.HCPN ---
Reason for visit a. To assist with evaluation and management of symptoms including: Encephalopathy, pain, agitation b. To assist medical decision maker(s) with: better understanding of current medical conditions; weighing benefits/burdens of medical treatment options; making medical treatment decisions. Subjective/Interval History Patient seen for follow-up on symptom management for encephalopathy, pain and agitation. Patient remains encephalopathic and confused. She is now convinced that she is home and not in a hospital. She is aware that she is in [place]. She is more alert and active in the bed. She is no longer restrained and is moving all extremities both to command, the majority of the time, and spontaneously with purpose. She remains with difficulty expressing her symptoms, stating she was not in pain while she was fidgeting and trying to reposition herself and putting her hand to her head as though she had a headache. She previously knew that she was in the intensive care unit this morning, now denying that she is in the hospital. This morning she thought she was in [place], this afternoon she says she is in [place]. She received Tylenol earlier today for back pain. In addition to immobility her risk factors for pain include rheumatoid arthritis, lupus, head injury and obesity. As she is having difficulty consistently expressing her needs and has some confusion, it is difficult to obtain an accurate assessment of her pain level and the nonverbal pain scale is being employed for this. She is exhibiting some agitation, pulling herself around in bed, taking covers off and on, saying "okay let us get out of here now". Her sister does report some combativeness earlier today. She has been refusing medications for the nurse, but would take them for her sister. She is attempting to get out of bed and may benefit from a bed alarm. Family/friend interactions Spoke with patient's sisterMireille and brother's at bedside. They report increased agitation and confusion today as well as some combativeness. Family is now engaged in considering possible discharge options, should the patient survive this hospitalization. Reviewed possible options to discuss with hospitalist and case management. Reviewed symptoms and prescribed interventions. All questions answered. Did notify the family that she has been cleared from neurosurgery standpoint for transfer to a medical floor. They expressed concern regarding possible decline from continued bleeding. I did explain that neurosurgery had left in order to reimage her for any acute neuro changes which did reassure them. . Advance Directives Living Will: Copy in medical record Health Care Surrogate: Copy in medical record Advance Directive Specifics Date completed: December 17, 2006 . Health Care Surrogate(s): She named her friend, Geetha Gamez as her primary healthcare surrogate and her sister, Mireille John as her alternate surrogate , . She specifies that both surrogates must agree to withhold or withdraw life support. . Documented care wishes: Living will on chart. . Significant change in goals: Family made patient a DO NOT RESUSCITATE status 12/17/17. . Objective Vital Signs Date Time Temp Pulse Resp B/P (MAP) Pulse Ox O2 Delivery O2 Flow Rate FiO2 12/18/17 16:00 77 12/18/17 16:00 98.7 77 20 139/81 (100) 96 12/18/17 14:00 69 12/18/17 12:00 98.7 72 17 122/58 (79) 96 12/18/17 12:00 72 12/18/17 10:00 89 12/18/17 08:00 96 Room Air 12/18/17 08:00 98.4 71 16 157/67 (97) 96 12/18/17 08:00 82 12/18/17 06:00 86 12/18/17 04:00 98.2 80 22 148/78 (101) 93 12/18/17 04:00 84 12/18/17 02:00 80 12/18/17 00:21 96 12/18/17 00:00 98.2 80 22 148/78 (101) 93 12/18/17 00:00 84 12/17/17 22:00 85 12/17/17 20:00 98.4 84 26 147/73 (97) 93 12/17/17 20:00 84 12/17/17 19:00 93 Room Air 12/17/17 18:00 88 Intake & Output 12/18/17 12/18/17 07:00 19:00 Intake Total 60 ml Output Total 950 ml Balance -890 ml Intake Oral 60 ml Output Urine Total 950 ml # Bowel Movements 0 Physical Exam CONSTITUTIONAL/GENERAL: This is an adequately nourished patient, in no apparent distress. TUBES/LINES/DRAINS: PIV RFA, De La Cruz. SKIN: No jaundice, rashes, or lesions. Ecchymoses on upper extremities. Improving erythema on medial aspect of right upper arm, no wounds seen anteriorly. Skin temperature appropriate. Not diaphoretic. HEAD: Posterior head contusion with s/s drainage. Normocephalic. EYES: Pupils equal and round and reactive. Extraocular motions intact. No scleral icterus. No injection or drainage. Fundi not examined. ENT: Hearing grossly normal. Nose without bleeding or purulent drainage. Throat without visible erythema, exudates, masses, or lesions. NECK: Trachea midline. Supple, nontender. No palpable thyroid enlargement or nodularity. CARDIOVASCULAR: S1, S2, irregular rhythm, controlled rate, 1/6 systolic ejection murmur, no rub no gallop. RESPIRATORY/CHEST: Symmetric, unlabored respirations. Clear to auscultation. Breath sounds equal bilaterally. No wheezes, rales, or rhonchi. GASTROINTESTINAL: Abdomen soft, non-tender, nondistended. No hepato-splenomegaly , or palpable masses. No guarding. Bowel sounds present. GENITOURINARY: Without palpable bladder distension. De [place] Cruz catheter in place. MUSCULOSKELETAL: Extremities without clubbing, cyanosis, or edema. Weakness in right lower extremity greater than left lower extremity. LYMPHATICS: No palpable cervical or supraclavicular adenopathy. NEUROLOGICAL: Awake and alert. Intermittently follows commands, requires cueing , oriented to self, not oriented to place time or purpose. PSYCHIATRIC: Agitated and intermittently combative this afternoon. . Diagnostic Tests Laboratory Laboratory Tests Test 12/17/17 06:12 12/18/17 04:00 12/18/17 04:49 White Blood Count 18.2 TH/MM3 (4.0-11.0) 15.6 TH/MM3 (4.0-11.0) Red Blood Count 4.58 MIL/MM3 (4.00-5.30) 4.49 MIL/MM3 (4.00-5.30) Hemoglobin 13.3 GM/DL (11.6-15.3) 13.1 GM/DL (11.6-15.3) Hematocrit 41.8 % (35.0-46.0) 41.1 % (35.0-46.0) Mean Corpuscular Volume 91.3 FL (80.0-100.0) 91.4 FL (80.0-100.0) Mean Corpuscular Hemoglobin 29.1 PG (27.0-34.0) 29.1 PG (27.0-34.0) Mean Corpuscular Hemoglobin Concent 31.9 % (32.0-36.0) 31.8 % (32.0-36.0) Red Cell Distribution Width 15.7 % (11.6-17.2) 15.9 % (11.6-17.2) Platelet Count 245 TH/MM3 (150-450) 245 TH/MM3 (150-450) Mean Platelet Volume 7.6 FL (7.0-11.0) 8.1 FL (7.0-11.0) Neutrophils (%) (Auto) 88.2 % (16.0-70.0) 87.3 % (16.0-70.0) Lymphocytes (%) (Auto) 5.7 % (9.0-44.0) 6.5 % (9.0-44.0) Monocytes (%) (Auto) 5.7 % (0.0-8.0) 5.4 % (0.0-8.0) Eosinophils (%) (Auto) 0.2 % (0.0-4.0) 0.4 % (0.0-4.0) Basophils (%) (Auto) 0.2 % (0.0-2.0) 0.4 % (0.0-2.0) Neutrophils # (Auto) 16.1 TH/MM3 (1.8-7.7) 13.6 TH/MM3 (1.8-7.7) Lymphocytes # (Auto) 1.0 TH/MM3 (1.0-4.8) 1.0 TH/MM3 (1.0-4.8) Monocytes # (Auto) 1.0 TH/MM3 (0-0.9) 0.8 TH/MM3 (0-0.9) Eosinophils # (Auto) 0.0 TH/MM3 (0-0.4) 0.1 TH/MM3 (0-0.4) Basophils # (Auto) 0.0 TH/MM3 (0-0.2) 0.1 TH/MM3 (0-0.2) CBC Comment DIFF FINAL DIFF FINAL Differential Comment Blood Urea Nitrogen 11 MG/DL (7-18) 9 MG/DL (7-18) Creatinine 0.50 MG/DL (0.50-1.00) 0.50 MG/DL (0.50-1.00) Random Glucose 107 MG/DL (74-106) 68 MG/DL (74-106) Calcium Level 8.6 MG/DL (8.5-10.1) 9.0 MG/DL (8.5-10.1) Magnesium Level 1.9 MG/DL (1.5-2.5) 2.1 MG/DL (1.5-2.5) Sodium Level 137 MEQ/L (136-145) 141 MEQ/L (136-145) Potassium Level 3.8 MEQ/L (3.5-5.1) 3.8 MEQ/L (3.5-5.1) Chloride Level 103 MEQ/L (98-107) 104 MEQ/L (98-107) Carbon Dioxide Level 25.1 MEQ/L (21.0-32.0) 26.4 MEQ/L (21.0-32.0) Anion Gap 9 MEQ/L (5-15) 11 MEQ/L (5-15) Estimat Glomerular Filtration Rate 122 ML/MIN (>89) 122 ML/MIN (>89) Urine Color YELLOW (YELLW/STRAW) Urine Turbidity TURBID (CLEAR) Urine pH 8.0 (5.0-8.5) Urine Specific Baxter 1.006 (1.002-1.035) Urine Protein NEG mg/dL (NEG-TRACE) Urine Glucose (UA) NEG mg/dL (NEG) Urine Ketones TRACE mg/dL (NEG) Urine Occult Blood MOD (NEG) Urine Nitrite NEG (NEG) Urine Bilirubin NEG (NEG) Urine Urobilinogen 2.0 mg/dL (LESS THAN 2) Urine Leukocyte Esterase LARGE (NEG) Urine WBC /hpf (0-5) Urine WBC Clumps MANY (NONE) Urine Amorphous Sediment RARE Urine Bacteria MANY /hpf (NONE) Urine Mucus FEW /lpf (OCC) Microscopic Urinalysis Comment CATH-CULTURE IND Result Diagram: 12/18/17 0449 12/18/17 0449 Microbiology Microbiology Date/Time Source Procedure Growth Status 12/18/17 04:00 Urine Catheterized Urine Urine Culture Pending Received Imaging Last Impressions Chest X-Ray 12/17/17 0000 Signed Impressions: CONCLUSION: Minimal left basilar density could be atelectasis or infiltrate. Head CT 12/16/17 1020 Signed Impressions: CONCLUSION: 1. Evolving bilateral subarachnoid hemorrhage with progressive encephalomalaci a and edema in the left frontal mid to lower convexities. There is slight incre ased associated mass effect with increased [id number] subfalcine shift measu ring up to 3 mm. 2. Evolving trace intraventricular hemorrhage. 3. No new intercurrent hemorrhage. Abdomen/Pelvis CT 12/12/17 0000 Signed Impressions: CONCLUSION: 1. No abdominal visceral injury. Cervical Spine CT 12/11/17 1613 Signed Impressions: CONCLUSION: 1. Right occipital calvarial fracture. 2. Degenerative subluxations and advanced multilevel degenerative changes. Neck CTA 12/11/17 0000 Addendum Impressions: CONCLUSION: 1. No hemodynamically significant stenosis in either carotid artery. 2. Mild narrowing in the left carotid bulb estimated to be 30-40 %. Head CTA 12/11/17 0000 Signed Impressions: CONCLUSION: 1. Right occipital calvarial fracture. 2. No large vessel stenosis or aneurysm. 3. Dominant left vertebral artery. 4. Distal right vertebral artery not seen. Assessment and Plan Disease Oriented Problem List: (1) Subarachnoid hemorrhage (2) Skull fracture (3) Syncope and collapse (4) Rheumatoid arthritis (5) Diabetes (6) HTN (hypertension) (7) Junctional cardiac arrhythmia Symptom Scale: (1) Confusion (2) Pain, generalized Pertinent Non-Medical Issues Psychosocial:She was born in [place] but has lived in [place] for over 35 years. She has 2 sisters and 2 brothers with whom she is very close. 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 She was once and is now . She has no children. Spiritual: Identifies as an [employer] Legal:has named her sister Mireille as her healthcare surrogate Ethical issues impacting care: None noted. . Important Contacts Sister: Mireille John , . Prognosis Her prognosis is guarded. She has a subarachnoid hemorrhage which is showing some extension on most recent CT. She remains confused and encephalopathic. She is not capacitated to make decisions on her own and it is not certain if she will regain that capacity. She has multiple comorbidities and is declining in cognitive activity and alertness instead of recovering. She is at elevated risk of continued complications and decline. . Code Status: No Code Plan PLAN: Legal decision maker: patient is not capacitated at this time for independent decision-making. She had previously completed a healthcare surrogate naming her sister, Mireille John, as her alternate healthcare surrogate and Geetha Gamez as her primary healthcare surrogate. Geetha has dementia and is unable to serve, so healthcare surrogacy has defaulted to patient's sister, Mireille, who is readily available, agrees to serve. Goals: Comfort oriented. CODE STATUS: DO NOT RESUSCITATE SYMPTOMS: * Encephalopathy: This is new in onset and likely related to her traumatic brain injury and subarachnoid hemorrhage. There is no prior history of altered mental status or confusion per my discussion with her sisters, Mireille and Castillo. At this time neurosurgery is following and monitoring CT scans for progression. She is currently receiving prednisone for edema and Keppra as seizure prophylaxis. While she is more alert, she is also more confused. * Pain: She is moving all extremities spontaneously at this time. She did receive 1 dose of Tylenol earlier today for back pain. Her last dose of IV morphine was given 12/17/17 at 6:39 AM. Due to her confusion, she is unable to accurately and consistently identifying her pain. * Agitation: She is more agitated today but spontaneously moving and intermittently trying to get out of bed. She is stating that she wants to get out of here and go home, yet states that she is home. She is not restrained today. She remains on prednisone 10 mg daily. If agitation continues would recommend low dose Seroquel if okay with neurosurgery. Palliative care will continue to follow the patient during hospital course as condition evolves, to assist patient/decision-maker with understanding of their medical conditions, weighing benefits/burdens of treatment options, for clarification of goals of treatment. Additionally will assist with any symptoms of palliative concern. . Attestation To help prompt me to consider important information that might be impacting today's encounter and assessment, information from prior notes written by myself or my colleagues may have been "brought forward" into today's note. My signature on this note, however, is an attestation that I personally performed the exam, history, and/or decision-making noted today, and, unless otherwise indicated, the interactions with patient, family, and staff as well as the review of records all occurred today. I also attest that the listed assessment and stated plan reflect my best clinical judgment today based on the combination of historical information, prior notes, and today's exam/ interactions. When time spent is documented, it refers only to time spent today by the signer, or if indicated, combined time spent today by collaborating physician/nurse practitioner. . Laina Hilton Dec 18, 2017 5:16 pm
[2017-12-18] MEDS: D5-NS + KCL 20 MEQ INJ 1,000 ML IV SCH (17:46)
[2017-12-18] MEDS: levETIRAcetam INJ 500 MG in SODIUM CHLORIDE 0.9% INJ 100 ML IV SCH (21:30)
[2017-12-19] VITALS (10 sets, daily range): BP systolic 135–177; BP diastolic 71–89; PULSE 78–90; RESP 16–25; TEMP 98.3–99.6; O2SAT 91–98
[2017-12-19] MEDS: CLINDAMYCIN 600 MG/NS PREMIX 50 ML IV SCH ×4 (03:27→21:25)
[2017-12-19] MEDS: CHLORHEXIDINE GLUCONATE 2 % 1 PACK (2 CLOTHS) TOP SCH (03:55)
[2017-12-19] MEDS: ENALAPRILAT 2.5 MG/2 ML VIAL IV PUSH PRN ×2 (04:20→10:17)
[2017-12-19] MEDS: D5-NS + KCL 20 MEQ INJ 1,000 ML IV SCH ×2 (06:27→17:05)
[2017-12-19] MEDS: INSULIN ASPART SUPPLEMENTAL SCALE SQ SCH ×4 (08:00→21:00)
[2017-12-19] MEDS: levETIRAcetam INJ 500 MG in SODIUM CHLORIDE 0.9% INJ 100 ML IV SCH ×2 (09:47→21:25)
[2017-12-19] MEDS: predniSONE 10 MG TAB PO SCH (09:47)
[2017-12-19] MEDS: SODIUM CHLORIDE 0.9% FLUSH 10 ML FLUSH IV FLUSH SCH ×2 (09:47→21:00)
[2017-12-19] MEDS: LACTULOSE SYRUP 20 GM/30 ML CUP PO SCH (09:47)
[2017-12-19 11:47] LABS: AUTOMATED NEUTROPHIL # 10.4 TH/MM3 (1.8-7.7); BASOPHIL # 0.1 TH/MM3 (0-0.2); BASOPHIL % 0.6 % (0.0-2.0); EOSINOPHIL # 0.1 TH/MM3 (0-0.4); EOSINOPHIL % 0.6 % (0.0-4.0); HEMATOCRIT 42.5 % (35.0-46.0); HEMOGLOBIN 13.6 GM/DL (11.6-15.3); MEAN CORPUSCULAR HEMOGLOBIN 29.5 PG (27.0-34.0); MEAN CORPUSCULAR HGB CONC 32.1 % (32.0-36.0); MEAN PLATELET VOLUME 8.4 FL (7.0-11.0); MONO % 6.9 % (0.0-8.0); MONOCYTE # 0.9 TH/MM3 (0-0.9); NEUT % 83.9 % (16.0-70.0); PLATELET COUNT 283 TH/MM3 (150-450); RED BLOOD COUNT 4.62 MIL/MM3 (4.00-5.30); WHITE BLOOD COUNT 12.4 TH/MM3 (4.0-11.0)
[2017-12-19 11:49] LABS: BICARBONATE 22.2 MEQ/L (21.0-32.0); CALCIUM 8.6 MG/DL (8.5-10.1); CREATININE 0.55 MG/DL (0.50-1.00); MAGNESIUM 1.9 MG/DL (1.5-2.5)
--- NOTE | 2017-12-19 14:08 | HHI.NSPN ---
(Madison Zhou) Note Status Status: Progress Note (Madison Zhou) Interval History Interval History 12/11: 71 yo fall secondary to probable syncopal episode 12/12: The patient is drowsy when seen this morning. She awakens to voice and briefly participates before drifting back off to sleep. She does have some confusion and it appears that she may have either some receptive aphasia. Sensation intact upon evaluation. Mild left upper extremity weakness due to pain secondary to rotator cuff injury, and normal to the other extremities. She went for a repeat CT brain this morning which was without change. 12/13: Or new problems reported. No complaint of headache today. Out of bed in chair earlier this morning without difficulty Poor oral intake. No nausea or emesis 12/14: Pt awakens but is lethargic. Pupils 3mm bilaterally. She is on Cardene drip. She follows commands. Moves all 4 extremities. NC 2L. 12/15: The patient is awake and visiting with her family when seen. She reports that she developed a headache and dizziness when she got up earlier. Nursing reports that the patient is weak. She denied any pain, numbness or tingling to the extremities. Her confusion is improved upon evaluation. She continues to have weakness to the left upper extremity due to her rotator cuff injury. She also is weaker to both quadriceps upon testing. She is not on the nicardipine drip when seen although her systolic blood pressure was elevated. Also her heart rate was elevated. Nursing does report that Cardiology plans to do further testing mid week. 12/16: This morning the patient is drowsy laying in bed. She has family at the bedside. She awakens to voice and her affect is flat this morning. She does say she has a slight headache at present and has had dizziness when she gets up. She endorsed numbness to the lower extremities today. When asked again about the numbness to the lower extremities she states that it comes from the base of the skull up to the top of the head and disappears. Also it isn't there all the time. She states that this started after she came into the hospital. She is oriented to person, place and time upon evaluation. Her upper extremity exam is without change from yesterday. She has decreased sensation and weakness to the lower extremities. She is not able to hold the lower legs straight upon testing. 12/17: When seen this morning the patient is asleep but awakens to voice. She does interact but does requires coaxing at times. She drifts back off to sleep quickly. She denied any headache or dizziness. She continues to have pain to the left shoulder joint and now to the right elbow. She follows some commands. She participates to a limited degree in motor testing. Palliative Care is at the bedside to evaluate the patient. She went for a CT brain yesterday which demonstrated evolving SAH bilaterally and progressing encephalomalacia and edema. Also with slight increase in mass effect and subfalcine shift. Evolving intraventricular haemorrhage. No new haemorrhage noted. 12/18: The patient is asleep but awakens to voice. She had no complaints, denying headache, dizziness or any extremity pain, numbness or tingling. She participates better in her evaluation this morning but did have difficulty following some commands. She does have some confusion and thinks she is in [place] but knows she is in the intensive care unit. 12/19: Awake, confused, oriented to name only, not to time and place. Follows simple commands. Denies headaches, vomiting. (Madison Zhou) Labs, Micro, & Vital Signs Results Date Time Temp Pulse Resp B/P (MAP) Pulse Ox O2 Delivery O2 Flow Rate FiO2 12/19/17 08:00 98.7 86 16 175/83 (113) 95 12/19/17 07:00 97 Nasal Cannula 2.00 12/19/17 04:00 98.4 88 24 177/88 (117) 95 12/19/17 00:00 99.6 90 25 135/77 (96) 96 12/18/17 20:00 99.3 89 20 128/76 (93) 98 12/18/17 19:30 Room Air 12/18/17 18:00 69 12/18/17 16:00 77 12/18/17 16:00 98.7 77 20 139/81 (100) 96 12/18/17 14:00 69 Constitutional Vital Signs Date Time Temp Pulse Resp B/P (MAP) Pulse Ox O2 Delivery O2 Flow Rate FiO2 12/19/17 08:00 98.7 86 16 175/83 (113) 95 12/19/17 07:00 97 Nasal Cannula 2.00 12/19/17 04:00 98.4 88 24 177/88 (117) 95 12/19/17 00:00 99.6 90 25 135/77 (96) 96 12/18/17 20:00 99.3 89 20 128/76 (93) 98 12/18/17 19:30 Room Air 12/18/17 18:00 69 12/18/17 16:00 77 12/18/17 16:00 98.7 77 20 139/81 (100) 96 12/18/17 14:00 69 (Madison Zhou) Review of Systems Cardiovascular: DENIES: Chest pain Neurologic: DENIES: Headache, Localized weakness, Seizures (Madison Zhou) Physical Exam General: Elderly female in no apparent distress appears to be resting comfortably in bed Neuro: patient is awake, confused, oriented to self only. Follows few simple commands. Cranial nerve examination: pupils to be equal, round, and reactive to light. Facial motor function appears normal and symmetrical. Neck is soft and supple. Musculoskeletal no obvious deformities. She moves all 4 extremities spontaneously. Motor exam limited due to clinical conditions. Plantars flexors bilaterally. No ankle clonus. Cerebellar examination is limited due to the patient condition, but no obvious deficits are noted. Heart regular rate rhythm Lungs clear to auscultate bilaterally (Madison Zhou) General: Elderly female in no apparent distress appears to be resting comfortably in bed Neuro: patient is awake, confused, oriented to self only. Follows few simple commands. Cranial nerve examination: pupils to be equal, round, and reactive to light. Facial motor function appears normal and symmetrical. Neck is soft and supple. Musculoskeletal no obvious deformities. She moves all 4 extremities spontaneously. Motor exam limited due to clinical conditions. Plantars flexors bilaterally. No ankle clonus. Cerebellar examination is limited due to the patient condition, but no obvious deficits are noted. Heart regular rate rhythm Lungs clear to auscultate bilaterally (Yoel Corbett MD) Medications Current Medications Current Medications Medications (Trade) Dose Ordered Sig/Lizeth Route PRN Reason Start Time Stop Time Status Last Admin Dose Admin Nicardipine HCl 25 mg/Sodium Chloride 260 ml @ 52 mls/hr TITRATE PRN IV Blood pressure management 12/11/17 17:45 12/17/17 06:39 Prednisone (Deltasone) 10 mg DAILY PO 12/12/17 09:00 12/19/17 09:47 Sodium Chloride (NS Flush) 2 ml UNSCH PRN IV FLUSH FLUSH AFTER USING IV ACCESS 12/11/17 19:45 Sodium Chloride (NS Flush) 2 ml BID IV FLUSH 12/11/17 21:00 12/19/17 09:47 Acetaminophen (Tylenol) 650 mg Q6H PRN PO FEVER >101F 12/11/17 19:45 12/18/17 15:41 Ondansetron HCl (Zofran Odt) 4 mg Q6H PRN PO NAUSEA OR VOMITING 12/11/17 19:45 12/11/17 21:50 Albuterol/ Ipratropium (Duoneb Neb) 1 ampule Q2HR NEB PRN INH WHEEZING 12/11/17 19:45 Miscellaneous Information ([facility] [place] [facility]) 1 [id number] XX 12/11/17 19:45 12/11/17 19:45 Chlorhexidine Gluconate (Chlorhexidine 2% Cloth) Taper DAILY@04 TOP 12/12/17 04:00 12/08/18 03:59 12/17/17 04:00 Chlorhexidine Gluconate (Chlorhexidine 2% Cloth) 3 pack UNSCH PRN TOP HYGIENIC CARE 12/11/17 19:45 Magnesium Hydroxide (Milk Of Magnesia Liq) 30 ml Q12H PRN PO Mild constipation 12/11/17 19:45 Sennosides (Senokot) 17.2 mg Q12H PRN PO Moderate constipation 12/11/17 19:45 Bisacodyl (Dulcolax Supp) 10 mg DAILY PRN RECTAL SEVERE CONSITIPATION 12/11/17 19:45 Lactulose (Lactulose Liq) 30 ml DAILY PRN PO SEVERE CONSITIPATION 12/11/17 19:45 12/17/17 09:13 Dextrose (D50w (Vial) Inj) 50 ml UNSCH PRN IV PUSH HYPOGLYCEMIA-SEE COMMENTS 12/11/17 21:30 Glucagon (Glucagon Inj) 1 mg UNSCH PRN OTHER HYPOGLYCEMIA-SEE COMMENTS 12/11/17 21:30 Enalaprilat (Vasotec Inj) 2.5 mg Q6H PRN IV PUSH SBP > 160 12/12/17 10:15 12/19/17 10:17 Clonidine (Catapres) 0.1 mg Q4H PRN PO sbp > 150 12/14/17 09:00 12/16/17 20:13 Insulin Aspart (NovoLOG SUPPLEMENTAL SCALE) 1 ACHS SLIDING SCALE SQ 12/14/17 12:00 12/19/17 08:00 Miscellaneous (Pill Splitter) 1 ea UNSCH PRN OTHER SEE LABEL COMMENTS 12/16/17 19:30 Clindamycin/ Sodium Chloride 50 ml @ 100 mls/hr Q6H IV 12/17/17 21:00 12/19/17 10:06 Lactulose (Lactulose Liq) 30 ml DAILY PO 12/18/17 09:00 12/19/17 09:47 Collagenase (Santyl Oint) 1 applic UNSCH TOPICAL 12/18/17 16:15 Lorazepam (Ativan Inj) 0.5 mg Q4H PRN IV PUSH AGITATION AND/OR HALLUCINATION 12/18/17 17:15 12/18/17 22:39 Levetriacetam 500 mg/Sodium Chloride 105 ml @ 420 mls/hr Q12HR IV 12/18/17 21:00 12/19/17 09:47 Potassium Chloride/Dextrose/ Sod Cl 1,000 ml @ 84 mls/hr [id number] IV 12/18/17 17:15 12/19/17 06:27 (Madison Zhou) Medical Decision Making MDM Remarks 72-year-old female status post fall TBI with bilateral subarachnoid hemorrhage, cerebral edema, occipital skull fracture (Madison Zhou) Plan Plan Remarks Neurologically stable, cont nonsurgical management serial neuro checks, follow-up neurological examination, medical management (Madison Zhou) Attending Statement Assessment and plan 72 year old female with multiple critical problems 1. syncope/collapse 2. SAH/basilar skull fx 3. junctional rhythm 4. htn 5. diabetes 6. RA/chronic steroids Subarachnoid hemorrhage ICD Codes: I60.9 - Nontraumatic subarachnoid hemorrhage, unspecified Status: Acute Plan: Stable. continue telemetry. Continue serial neuro checks. There are no neurological changes. Continue known surgical management of her traumatic brain injury Her follow up CT brain showed evolving bilateral subarachnoid hemorrhage with progressive encephalomalacia and edema on the left frontal mid to lower convexities. There is slight increased associated mass effect with increased [id number] subfalcine shift measuring up to 3 mm. Evolving trace intraventricular hemorrhage. No new intercurrent hemorrhage. Hypertension. - lisinopril was discontinues - change norvasc to procardia XL 30mg BID -DC'd, patient not taking PO well BP medication transitioned to IV - Enalapril 2.5 mg IV as needed for HTN Plan: -goal to maintain SBP 120 - 150 due to subarachnoid hemorrhage - lisinopril -DC'd - change norvasc to procardia XL 30mg BID -DC'd, patient not taking PO well BP medication transitioned to IV - Enalapril 2.5 mg IV as needed for HTN Scalp wound ICD Codes: S01.00XA - Unspecified open wound of scalp, initial encounter Status: Acute Plan: - start clindamycin - obtain wound care consult Cellulitis of forearm ICD Codes: L03.119 - Cellulitis of unspecified part of limb Status: Acute Plan: - start clindamycin UTI (lower urinary tract infection) ICD Codes: N39.0 - Urinary tract infection, site not specified Status: Acute Plan: - abnormal UA - urine Culture growing gram negative rods - afebrile - leukocytosis improving - started on clindamycin Junctional cardiac arrhythmia ICD Codes: I49.8 - Other specified cardiac arrhythmias Status: Acute Plan: - Case d/w Dr. Jones, 12/16. NO EP study at this time. Continue to observe clinical status. Skull fracture ICD Codes: S02.91XA - Unspecified fracture of skull, initial encounter for closed fracture Status: Acute Continue aggressive pulmonary toilette, nasotracheal suction, and breathing treatments with nebulizers. Daily PT and OT Renal. Continue to monitor closely urine output, BUN and creatinine Endocrine. Continue to Monitor serial Acu checks and SSI as needed in detail Syncope and collapse ICD Codes: R55 - Syncope and collapse Status: Acute HTN (hypertension) Rheumatoid arthritis ICD Codes: M06.9 - Rheumatoid arthritis, unspecified Status: Chronic Diabetes ICD Codes: E11.9 - Type 2 diabetes mellitus without complications Status: Chronic Plan: - accu check ACHS with SSI coverage Continue Protonix for stress ulcer prophylaxis Continue Tyshawn hose and SCD's for DVT prophylaxis The exam, history, and the medical decision-making described in the above note were completed with the assistance of the mid-level provider. I reviewed and agree with the findings presented. I attest that I had a xogs-ev-wior encounter with the patient on the same day, and personally performed and documented my assessment and findings in the medical record. (Yoel Corbett MD) Madison Zhou Dec 19, 2017 14:08 Yoel Corbett MD Dec 21, 2017 15:58
--- NOTE | 2017-12-19 18:48 | HHI.PR ---
Subjective Remarks Patient resting in bed, able to awake to voice oriented to person only appears to be declining, appears comfortable Objective Vitals Vital Signs Date Time Temp Pulse Resp B/P (MAP) Pulse Ox O2 Delivery O2 Flow Rate FiO2 12/19/17 17:16 98.5 82 20 160/85 (110) 91 12/19/17 16:07 99.1 88 23 148/78 (101) 97 12/19/17 14:00 90 23 145/71 (95) 97 12/19/17 13:00 85 24 156/89 (111) 97 12/19/17 12:00 99.0 90 23 145/71 (95) 96 12/19/17 08:00 98.7 86 16 175/83 (113) 95 12/19/17 07:00 97 Nasal Cannula 2.00 12/19/17 04:00 98.4 88 24 177/88 (117) 95 12/19/17 00:00 99.6 90 25 135/77 (96) 96 12/18/17 20:00 99.3 89 20 128/76 (93) 98 12/18/17 19:30 Room Air 12/19/17 12/19/17 12/20/17 15:00 23:00 07:00 Output Total 1100 ml Balance -1100 ml Output Urine Total 1100 ml Stool Total 0 ml # Bowel Movements 0 Result Diagram: 12/19/17 1055 12/19/17 1035 Other Results Laboratory Tests Test 12/17/17 06:12 12/18/17 04:00 12/18/17 04:49 12/19/17 10:35 White Blood Count 18.2 TH/MM3 15.6 TH/MM3 Red Blood Count 4.58 MIL/MM3 4.49 MIL/MM3 Hemoglobin 13.3 GM/DL 13.1 GM/DL Hematocrit 41.8 % 41.1 % Mean Corpuscular Volume 91.3 FL 91.4 FL Mean Corpuscular Hemoglobin 29.1 PG 29.1 PG Mean Corpuscular Hemoglobin Concent 31.9 % 31.8 % Red Cell Distribution Width 15.7 % 15.9 % Platelet Count 245 TH/MM3 245 TH/MM3 Mean Platelet Volume 7.6 FL 8.1 FL Neutrophils (%) (Auto) 88.2 % 87.3 % Lymphocytes (%) (Auto) 5.7 % 6.5 % Monocytes (%) (Auto) 5.7 % 5.4 % Eosinophils (%) (Auto) 0.2 % 0.4 % Basophils (%) (Auto) 0.2 % 0.4 % Neutrophils # (Auto) 16.1 TH/MM3 13.6 TH/MM3 Lymphocytes # (Auto) 1.0 TH/MM3 1.0 TH/MM3 Monocytes # (Auto) 1.0 TH/MM3 0.8 TH/MM3 Eosinophils # (Auto) 0.0 TH/MM3 0.1 TH/MM3 Basophils # (Auto) 0.0 TH/MM3 0.1 TH/MM3 CBC Comment DIFF FINAL DIFF FINAL Differential Comment Blood Urea Nitrogen 11 MG/DL 9 MG/DL 9 MG/DL Creatinine 0.50 MG/DL 0.50 MG/DL 0.55 MG/DL Random Glucose 107 MG/DL 68 MG/DL 138 MG/DL Calcium Level 8.6 MG/DL 9.0 MG/DL 8.6 MG/DL Magnesium Level 1.9 MG/DL 2.1 MG/DL 1.9 MG/DL Sodium Level 137 MEQ/L 141 MEQ/L 143 MEQ/L Potassium Level 3.8 MEQ/L 3.8 MEQ/L 3.7 MEQ/L Chloride Level 103 MEQ/L 104 MEQ/L 110 MEQ/L Carbon Dioxide Level 25.1 MEQ/L 26.4 MEQ/L 22.2 MEQ/L Anion Gap 9 MEQ/L 11 MEQ/L 11 MEQ/L Estimat Glomerular Filtration Rate 122 ML/MIN 122 ML/MIN 109 ML/MIN Urine Color YELLOW Urine Turbidity TURBID Urine pH 8.0 Urine Specific [place] 1.006 Urine Protein NEG mg/dL Urine Glucose (UA) NEG mg/dL Urine Ketones TRACE mg/dL Urine Occult Blood MOD Urine Nitrite NEG Urine Bilirubin NEG Urine Urobilinogen 2.0 mg/dL Urine Leukocyte Esterase LARGE Urine WBC /hpf Urine WBC Clumps MANY Urine Amorphous Sediment RARE Urine Bacteria MANY /hpf Urine Mucus FEW /lpf Microscopic Urinalysis Comment CATH-CULTURE IND Test 12/19/17 10:55 White Blood Count 12.4 TH/MM3 Red Blood Count 4.62 MIL/MM3 Hemoglobin 13.6 GM/DL Hematocrit 42.5 % Mean Corpuscular Volume 92.0 FL Mean Corpuscular Hemoglobin 29.5 PG Mean Corpuscular Hemoglobin Concent 32.1 % Red Cell Distribution Width 16.0 % Platelet Count 283 TH/MM3 Mean Platelet Volume 8.4 FL Neutrophils (%) (Auto) 83.9 % Lymphocytes (%) (Auto) 8.0 % Monocytes (%) (Auto) 6.9 % Eosinophils (%) (Auto) 0.6 % Basophils (%) (Auto) 0.6 % Neutrophils # (Auto) 10.4 TH/MM3 Lymphocytes # (Auto) 1.0 TH/MM3 Monocytes # (Auto) 0.9 TH/MM3 Eosinophils # (Auto) 0.1 TH/MM3 Basophils # (Auto) 0.1 TH/MM3 CBC Comment DIFF FINAL Differential Comment Imaging Last Impressions Head CT 12/13/17 0000 Signed Impressions: CONCLUSION: 1. Resolving bilateral subarachnoid hemorrhage. Developing encephalomalacia in the left frontal lobe with mild localized mass effect. No significant change i n midline shift of the septum pellucidum. No new hemorrhage. Stable calvarial f racture in the right occipital bone. Abdomen/Pelvis CT 12/12/17 0000 Signed Impressions: CONCLUSION: 1. No abdominal visceral injury. Chest X-Ray 12/11/17 1617 Signed Impressions: CONCLUSION: No evidence of acute airspace disease or significant congestion. Cervical Spine CT 12/11/17 1613 Signed Impressions: CONCLUSION: 1. Right occipital calvarial fracture. 2. Degenerative subluxations and advanced multilevel degenerative changes. Neck CTA 12/11/17 0000 Addendum Impressions: CONCLUSION: 1. No hemodynamically significant stenosis in either carotid artery. 2. Mild narrowing in the left carotid bulb estimated to be 30-40 %. Head CTA 12/11/17 0000 Signed Impressions: CONCLUSION: 1. Right occipital calvarial fracture. 2. No large vessel stenosis or aneurysm. 3. Dominant left vertebral artery. 4. Distal right vertebral artery not seen. Objective Remarks GENERAL: This is a well-nourished, well-developed patient, in no apparent distress. CARDIOVASCULAR: Regular rate and rhythm RESPIRATORY: Clear to auscultation. Breath sounds equal bilaterally. GASTROINTESTINAL: Abdomen soft, non-tender, nondistended. Normal active bowel sounds MUSCULOSKELETAL: Extremities without clubbing, cyanosis, or edema. NEURO: Alert & Oriented to person only. Moves all ext x4 Skin: wound at posterior scalp erythema at both forearms A/P Problem List: (1) Subarachnoid hemorrhage ICD Codes: I60.9 - Nontraumatic subarachnoid hemorrhage, unspecified Status: Acute Plan: 1. syncope/collapse 2. SAH/basilar skull fx 3. junctional rhythm 4. htn 5. diabetes 6. RA/chronic steroids - continue telemetry. - Case d/w Dr. Jones, 12/16. NO EP study at this time. Continue to observe clinical status. - Case d/w Dr. Le, 12/16. May require several week before clinical improvement. - lisinopril -DC'd - change norvasc to procardia XL 30mg BID -DC'd, patient not taking PO well BP medication transitioned to IV - Enalapril 2.5 mg IV as needed for HTN - Repeat CT brain per NSX latest CT scan reveals: evolving bilateral subarachnoid hemorrhage with progressive encephalomalacia and edema on the left frontal mid to lower convexities. There is slight increased associated mass effect with increased [id number] subfalcine shift measuring up to 3 mm. Evolving trace intraventricular hemorrhage. No new intercurrent hemorrhage. - PT - prednisone for edema per neurosurgery - keppra IV - SSI - Patient's prognosis is guarded. Patient continues to decline, care also following patient made a DNR 12/17/17 (2) Scalp wound ICD Codes: S01.00XA - Unspecified open wound of scalp, initial encounter Status: Acute Plan: - start clindamycin - obtain wound care consult (3) Cellulitis of forearm ICD Codes: L03.119 - Cellulitis of unspecified part of limb Status: Acute Plan: - start clindamycin (4) UTI (lower urinary tract infection) ICD Codes: N39.0 - Urinary tract infection, site not specified Status: Acute Plan: - abnormal UA - urine Culture growing gram negative rods - afebrile - leukocytosis improving, WBC 15.6 (12/18) -> 12.4 (12/19) - pt started on clindamycin (5) Junctional cardiac arrhythmia ICD Codes: I49.8 - Other specified cardiac arrhythmias Status: Acute Plan: - Case d/w Dr. Jones, 12/16. NO EP study at this time. Continue to observe clinical status. (6) Skull fracture ICD Codes: S02.91XA - Unspecified fracture of skull, initial encounter for closed fracture Status: Acute (7) Syncope and collapse ICD Codes: R55 - Syncope and collapse Status: Acute (8) HTN (hypertension) ICD Codes: I10 - Essential (primary) hypertension Status: Chronic Plan: -goal to maintain SBP 120 - 150 due to subarachnoid hemorrhage - lisinopril -DC'd - change norvasc to procardia XL 30mg BID -DC'd, patient not taking PO well BP medication transitioned to IV - Enalapril 2.5 mg IV as needed for HTN (9) Rheumatoid arthritis ICD Codes: M06.9 - Rheumatoid arthritis, unspecified Status: Chronic (10) Diabetes ICD Codes: E11.9 - Type 2 diabetes mellitus without complications Status: Chronic Plan: - accu check ACHS with SSI coverage Assessment and Plan Patient examined. Assessment and plan formulated with Lexi Shabazz PA-C. I agree with the above. If pt continues to decline, will need hospice. Problem Qualifiers (1) Scalp wound: (2) Skull fracture: Qualified Codes: S02.119B - Unspecified fracture of occiput, initial encounter for open fracture Lexi Shabazz Dec 19, 2017 18:48 Dany Licea DO Dec 20, 2017 15:07
[2017-12-20] VITALS (9 sets, daily range): BP systolic 135–173; BP diastolic 64–109; PULSE 83–95; RESP 16–22; TEMP 98.4–99.8; O2SAT 86–100
[2017-12-20] MEDS: CHLORHEXIDINE GLUCONATE 2 % 1 PACK (2 CLOTHS) TOP SCH (03:02)
[2017-12-20] MEDS: CLINDAMYCIN 600 MG/NS PREMIX 50 ML IV SCH ×3 (03:02→15:42)
[2017-12-20] MEDS: D5-NS + KCL 20 MEQ INJ 1,000 ML IV SCH ×2 (05:11→11:09)
[2017-12-20] MEDS: RESP: ALBUTEROL 2.5 MG/IPRATROPIUM 0.5 MG NEB (PRN) INH ×2 (05:54→10:19)
[2017-12-20] MEDS: SODIUM CHLORIDE 0.9% FLUSH 10 ML FLUSH IV FLUSH SCH (09:00)
[2017-12-20] MEDS: levETIRAcetam INJ 500 MG in SODIUM CHLORIDE 0.9% INJ 100 ML IV SCH (09:33)
[2017-12-20] MEDS: INSULIN ASPART SUPPLEMENTAL SCALE SQ SCH ×3 (09:36→16:52)
[2017-12-20] MEDS: LACTULOSE SYRUP 20 GM/30 ML CUP PO SCH (09:37)
[2017-12-20] MEDS: predniSONE 10 MG TAB PO SCH (09:37)
--- NOTE | 2017-12-20 12:36 | HHI.NSPN ---
(Madison Zhou) Note Status Status: Progress Note (Madison Zhou) Interval History Interval History 12/11: 71 yo fall secondary to probable syncopal episode 12/12: The patient is drowsy when seen this morning. She awakens to voice and briefly participates before drifting back off to sleep. She does have some confusion and it appears that she may have either some receptive aphasia. Sensation intact upon evaluation. Mild left upper extremity weakness due to pain secondary to rotator cuff injury, and normal to the other extremities. She went for a repeat CT brain this morning which was without change. 12/13: Or new problems reported. No complaint of headache today. Out of bed in chair earlier this morning without difficulty Poor oral intake. No nausea or emesis 12/14: Pt awakens but is lethargic. Pupils 3mm bilaterally. She is on Cardene drip. She follows commands. Moves all 4 extremities. NC 2L. 12/15: The patient is awake and visiting with her family when seen. She reports that she developed a headache and dizziness when she got up earlier. Nursing reports that the patient is weak. She denied any pain, numbness or tingling to the extremities. Her confusion is improved upon evaluation. She continues to have weakness to the left upper extremity due to her rotator cuff injury. She also is weaker to both quadriceps upon testing. She is not on the nicardipine drip when seen although her systolic blood pressure was elevated. Also her heart rate was elevated. Nursing does report that Cardiology plans to do further testing mid week. 12/16: This morning the patient is drowsy laying in bed. She has family at the bedside. She awakens to voice and her affect is flat this morning. She does say she has a slight headache at present and has had dizziness when she gets up. She endorsed numbness to the lower extremities today. When asked again about the numbness to the lower extremities she states that it comes from the base of the skull up to the top of the head and disappears. Also it isn't there all the time. She states that this started after she came into the hospital. She is oriented to person, place and time upon evaluation. Her upper extremity exam is without change from yesterday. She has decreased sensation and weakness to the lower extremities. She is not able to hold the lower legs straight upon testing. 12/17: When seen this morning the patient is asleep but awakens to voice. She does interact but does requires coaxing at times. She drifts back off to sleep quickly. She denied any headache or dizziness. She continues to have pain to the left shoulder joint and now to the right elbow. She follows some commands. She participates to a limited degree in motor testing. Palliative Care is at the bedside to evaluate the patient. She went for a CT brain yesterday which demonstrated evolving SAH bilaterally and progressing encephalomalacia and edema. Also with slight increase in mass effect and subfalcine shift. Evolving intraventricular haemorrhage. No new haemorrhage noted. 12/18: The patient is asleep but awakens to voice. She had no complaints, denying headache, dizziness or any extremity pain, numbness or tingling. She participates better in her evaluation this morning but did have difficulty following some commands. She does have some confusion and thinks she is in [place] but knows she is in the intensive care unit. 12/19: Awake, confused, oriented to name only, not to time and place. Follows simple commands. Denies headaches, vomiting. 12/20: transferred out of [facility], confused, awake. (Madison Zhou) Labs, Micro, & Vital Signs Results Date Time Temp Pulse Resp B/P (MAP) Pulse Ox O2 Delivery O2 Flow Rate FiO2 12/20/17 10:50 84 12/20/17 10:19 86 21 12/20/17 08:00 98.7 87 22 160/90 (113) 94 12/20/17 04:00 98.4 89 22 135/90 (105) 93 12/20/17 01:13 140/64 (89) 12/20/17 00:00 98.5 95 22 166/81 (109) 98 12/19/17 22:55 90 12/19/17 21:42 98 Room Air 12/19/17 20:00 98.3 78 18 160/75 (103) 98 12/19/17 17:16 98.5 82 20 160/85 (110) 91 12/19/17 16:07 99.1 88 23 148/78 (101) 97 12/19/17 14:00 90 23 145/71 (95) 97 12/19/17 13:00 85 24 156/89 (111) 97 Constitutional Vital Signs Date Time Temp Pulse Resp B/P (MAP) Pulse Ox O2 Delivery O2 Flow Rate FiO2 12/20/17 10:50 84 12/20/17 10:19 86 21 12/20/17 08:00 98.7 87 22 160/90 (113) 94 12/20/17 04:00 98.4 89 22 135/90 (105) 93 12/20/17 01:13 140/64 (89) 12/20/17 00:00 98.5 95 22 166/81 (109) 98 12/19/17 22:55 90 12/19/17 21:42 98 Room Air 12/19/17 20:00 98.3 78 18 160/75 (103) 98 12/19/17 17:16 98.5 82 20 160/85 (110) 91 12/19/17 16:07 99.1 88 23 148/78 (101) 97 12/19/17 14:00 90 23 145/71 (95) 97 12/19/17 13:00 85 24 156/89 (111) 97 (Madison Zhou) Physical Exam General: Elderly female in no apparent distress appears to be resting comfortably in bed Neuro: patient is awake, confused, oriented to self only. Follows few simple commands. Cranial nerve examination: pupils to be equal, round, and reactive to light. Facial motor function appears normal and symmetrical. Neck is soft and supple. Musculoskeletal no obvious deformities. She moves all 4 extremities spontaneously. Motor exam limited due to clinical conditions. Plantars flexors bilaterally. No ankle clonus. Cerebellar examination is limited due to the patient condition, but no obvious deficits are noted. Heart regular rate rhythm Lungs clear to auscultate bilaterally (Madison Zhou) General: Elderly female in no apparent distress appears to be resting comfortably in bed Neuro: patient is awake, confused, oriented to self only. Follows few simple commands. Cranial nerve examination: pupils to be equal, round, and reactive to light. Facial motor function appears normal and symmetrical. Neck is soft and supple. Musculoskeletal no obvious deformities. She moves all 4 extremities spontaneously. Motor exam limited due to clinical conditions. Plantars flexors bilaterally. No ankle clonus. Cerebellar examination is limited due to the patient condition, but no obvious deficits are noted. Heart regular rate rhythm Lungs clear to auscultate bilaterally (Yoel Corbett MD) Medications Current Medications Current Medications Medications (Trade) Dose Ordered Sig/Lizeth Route PRN Reason Start Time Stop Time Status Last Admin Dose Admin Nicardipine HCl 25 mg/Sodium Chloride 260 ml @ 52 mls/hr TITRATE PRN IV Blood pressure management 12/11/17 17:45 12/17/17 06:39 Prednisone (Deltasone) 10 mg DAILY PO 12/12/17 09:00 12/20/17 09:37 Sodium Chloride (NS Flush) 2 ml UNSCH PRN IV FLUSH FLUSH AFTER USING IV ACCESS 12/11/17 19:45 Sodium Chloride (NS Flush) 2 ml BID IV FLUSH 12/11/17 21:00 12/19/17 09:47 Acetaminophen (Tylenol) 650 mg Q6H PRN PO FEVER >101F 12/11/17 19:45 12/18/17 15:41 Ondansetron HCl (Zofran Odt) 4 mg Q6H PRN PO NAUSEA OR VOMITING 12/11/17 19:45 12/11/17 21:50 Albuterol/ Ipratropium (Duoneb Neb) 1 ampule Q2HR NEB PRN INH WHEEZING 12/11/17 19:45 12/20/17 10:19 Miscellaneous Information ([facility] Nursing Information) 1 Q361D XX 12/11/17 19:45 12/11/17 19:45 Chlorhexidine Gluconate (Chlorhexidine 2% Cloth) Taper DAILY@04 TOP 12/12/17 04:00 12/08/18 03:59 12/17/17 04:00 Chlorhexidine Gluconate (Chlorhexidine 2% Cloth) 3 pack UNSCH PRN TOP HYGIENIC CARE 12/11/17 19:45 Magnesium Hydroxide (Milk Of Magnesia Liq) 30 ml Q12H PRN PO Mild constipation 12/11/17 19:45 Sennosides (Senokot) 17.2 mg Q12H PRN PO Moderate constipation 12/11/17 19:45 Bisacodyl (Dulcolax Supp) 10 mg DAILY PRN RECTAL SEVERE CONSITIPATION 12/11/17 19:45 Lactulose (Lactulose Liq) 30 ml DAILY PRN PO SEVERE CONSITIPATION 12/11/17 19:45 12/17/17 09:13 Dextrose (D50w (Vial) Inj) 50 ml UNSCH PRN IV PUSH HYPOGLYCEMIA-SEE COMMENTS 12/11/17 21:30 Glucagon (Glucagon Inj) 1 mg UNSCH PRN OTHER HYPOGLYCEMIA-SEE COMMENTS 12/11/17 21:30 Enalaprilat (Vasotec Inj) 2.5 mg Q6H PRN IV PUSH SBP > 160 12/12/17 10:15 12/19/17 10:17 Clonidine (Catapres) 0.1 mg Q4H PRN PO sbp > 150 12/14/17 09:00 12/16/17 20:13 Insulin Aspart (NovoLOG SUPPLEMENTAL SCALE) 1 ACHS SLIDING SCALE SQ 12/14/17 12:00 12/20/17 09:36 Miscellaneous (Pill Splitter) 1 ea UNSCH PRN OTHER SEE LABEL COMMENTS 12/16/17 19:30 Clindamycin/ Sodium Chloride 50 ml @ 100 mls/hr Q6H IV 12/17/17 21:00 12/20/17 09:38 Lactulose (Lactulose Liq) 30 ml DAILY PO 12/18/17 09:00 12/20/17 09:37 Collagenase (Santyl Oint) 1 applic UNSCH TOPICAL 12/18/17 16:15 12/20/17 05:11 Lorazepam (Ativan Inj) 0.5 mg Q4H PRN IV PUSH AGITATION AND/OR HALLUCINATION 12/18/17 17:15 12/18/17 22:39 Levetriacetam 500 mg/Sodium Chloride 105 ml @ 420 mls/hr Q12HR IV 12/18/17 21:00 12/20/17 09:33 (Madison Zhou) Current Medications Current Medications Nortriptyline HCl (Pamelor) 25 mg ONCE ONCE PO ; Start 12/11/17 at 16:45; Stop 12/11/17 at 16:46; Status DC Tramadol HCl (Ultram) 50 mg ONCE ONCE PO Last administered on 12/11/17at 17:32 ; Start 12/11/17 at 17:15; Stop 12/11/17 at 17:17; Status DC Nicardipine HCl 25 mg/Sodium Chloride 260 ml @ 52 mls/hr TITRATE PRN IV Blood pressure management Last administered on 12/17/17at 06:39; Start 12/11/17 at 17: 45; Stop 12/20/17 at 17:54; Status DC Ondansetron HCl (Zofran Odt) 4 mg ONCE ONCE PO Last administered on at 18:45; Start 12/11/17 at 18:45; Stop 12/11/17 at 18:46; Status DC Alprazolam (Xanax) 0.5 mg Q4H PRN PO ANXIETY Last administered on 12/15/17at 22: 04; Start 12/11/17 at 19:45; Stop 12/18/17 at 17:08; Status DC Atorvastatin Calcium (Lipitor) 10 mg HS PO Last administered on 12/17/17at 22:02 ; Start 12/11/17 at 21:00; Stop 12/18/17 at 17:08; Status DC Glimepiride (Amaryl) 1 mg DAILY PO Last administered on 12/16/17at 08:11; Start 12/12/17 at 09:00; Stop 12/18/17 at 17:08; Status DC Nortriptyline HCl (Pamelor) 25 mg HS PO Last administered on 12/17/17at 22:11; Start 12/11/17 at 21:00; Stop 12/18/17 at 17:08; Status DC Prednisone (Deltasone) 10 mg DAILY PO Last administered on 12/20/17at 09:37; Start 12/12/17 at 09:00; Stop 12/20/17 at 17:54; Status DC Ropinirole HCl (Requip) 0.5 mg HS PO Last administered on 12/17/17at 22:11; Start 12/11/17 at 21:00; Stop 12/18/17 at 17:08; Status DC Sodium Chloride 1,000 ml @ 100 mls/hr Q10H IV Last administered on 12/13/17at 04:56; Start 12/11/17 at 19:39; Stop 12/13/17 at 08:44; Status DC Sodium Chloride (NS Flush) 2 ml UNSCH PRN IV FLUSH FLUSH AFTER USING IV ACCESS ; Start 12/11/17 at 19:45; Stop 12/20/17 at 17:54; Status DC Sodium Chloride (NS Flush) 2 ml BID IV FLUSH Last administered on 12/19/17at 09: 47; Start 12/11/17 at 21:00; Stop 12/20/17 at 17:54; Status DC Acetaminophen (Tylenol) 650 mg Q6H PRN PO FEVER >101F Last administered on 12/18at 15:41; Start 12/11/17 at 19:45; Stop 12/20/17 at 17:54; Status DC Morphine Sulfate (Morphine Inj) 2 mg Q2H PRN IV PUSH breakthrough pain over 6 Last administered on 12/17/17at 06:39; Start 12/11/17 at 19:45; Stop 12/18/17 at 17:08; Status DC Famotidine (Pepcid Inj) 20 mg Q12HR IV PUSH Last administered on 12/15/17at 08: 25; Start 12/11/17 at 21:00; Stop 12/15/17 at 09:08; Status DC Ondansetron HCl (Zofran Odt) 4 mg Q6H PRN PO NAUSEA OR VOMITING Last administered on 12/11/17at 21:50; Start 12/11/17 at 19:45; Stop 12/20/17 at 17:54 ; Status DC Temazepam (Restoril) 15 mg HS PRN PO INSOMNIA Last administered on 12/16/17at 00 :19; Start 12/11/17 at 21:00; Stop 12/18/17 at 17:11; Status DC Albuterol/ Ipratropium (Duoneb Neb) 1 ampule Q2HR NEB PRN INH WHEEZING Last administered on 12/20/17at 10:19; Start 12/11/17 at 19:45; Stop 12/20/17 at 17:54 ; Status DC Miscellaneous Information ([facility] Nursing Information) 1 Q361D XX Last administered on 12/11/17at 19:45; Start 12/11/17 at 19:45; Stop 12/20/17 at 17:54 ; Status DC Chlorhexidine Gluconate (Chlorhexidine 2% Cloth) Taper DAILY@04 TOP Last administered on 12/17/17at 04:00; Start 12/12/17 at 04:00; Stop 12/20/17 at 17:54 ; Status DC Chlorhexidine Gluconate (Chlorhexidine 2% Cloth) 3 pack UNSCH PRN TOP HYGIENIC CARE; Start 12/11/17 at 19:45; Stop 12/20/17 at 17:54; Status DC Senna/Docusate Sodium (Monique-Colace) 1 tab BID PO Last administered on at 22:01; Start 12/11/17 at 21:00; Stop 12/18/17 at 17:08; Status DC Magnesium Hydroxide (Milk Of Magnesia Liq) 30 ml Q12H PRN PO Mild constipation ; Start 12/11/17 at 19:45; Stop 12/20/17 at 17:54; Status DC Sennosides (Senokot) 17.2 mg Q12H PRN PO Moderate constipation; Start 12/11/17 at 19:45; Stop 12/20/17 at 17:54; Status DC Bisacodyl (Dulcolax Supp) 10 mg DAILY PRN RECTAL SEVERE CONSITIPATION; Start at 19:45; Stop 12/20/17 at 17:54; Status DC Lactulose (Lactulose Liq) 30 ml DAILY PRN PO SEVERE CONSITIPATION Last administered on 12/17/17at 09:13; Start 12/11/17 at 19:45; Stop 12/20/17 at 17:54 ; Status DC Iohexol (Omnipaque 350 Inj) 75 ml STK-MED ONCE IVCONTRAST Last administered on 12/11/17at 20:26; Start 12/11/17 at 20:26; Stop 12/11/17 at 20:27; Status DC Levetriacetam 100 ml @ 400 mls/hr Q12HR IV Last administered on 12/13/17at 21: 39; Start 12/11/17 at 22:00; Stop 12/14/17 at 08:56; Status DC Dextrose (D50w (Vial) Inj) 50 ml UNSCH PRN IV PUSH HYPOGLYCEMIA-SEE COMMENTS; Start 12/11/17 at 21:30; Stop 12/20/17 at 17:54; Status DC Glucagon (Glucagon Inj) 1 mg UNSCH PRN OTHER HYPOGLYCEMIA-SEE COMMENTS; Start 12/11/17 at 21:30; Stop 12/20/17 at 17:54; Status DC Lisinopril (Prinivil) 5 mg DAILY PO Last administered on 12/12/17at 11:18; Start 12/12/17 at 10:30; Stop 12/13/17 at 08:44; Status DC Enalaprilat (Vasotec Inj) 2.5 mg Q6H PRN IV PUSH SBP > 160 Last administered on 12/19/17at 10:17; Start 12/12/17 at 10:15; Stop 12/20/17 at 15:14; Status DC Iohexol (Omnipaque 350 Inj) 100 ml STK-MED ONCE IVCONTRAST Last administered on 12/12/17at 23:23; Start 12/12/17 at 23:23; Stop 12/12/17 at 23:24; Status DC Sodium Chloride 1,000 ml @ 50 mls/hr Q20H IV Last administered on 12/17/17at 13 :55; Start 12/13/17 at 08:45; Stop 12/18/17 at 17:11; Status DC Lisinopril (Prinivil) 10 mg Q12HR PO Last administered on 12/17/17at 22:01; Start 12/13/17 at 09:00; Stop 12/18/17 at 17:08; Status DC Clonidine (Catapres) 0.1 mg Q4H PRN PO sbp > 150 Last administered on at 20:13; Start 12/14/17 at 09:00; Stop 12/20/17 at 17:54; Status DC Levetriacetam (Keppra) 500 mg Q12HR PO Last administered on 12/17/17at 22:02; Start 12/14/17 at 09:00; Stop 12/18/17 at 17:08; Status DC Insulin Aspart (NovoLOG SUPPLEMENTAL SCALE) 1 ACHS SLIDING SCALE SQ Last administered on 12/20/17at 09:36; Start 12/14/17 at 12:00; Stop 12/20/17 at 17:54 ; Status DC Famotidine (Pepcid) 20 mg BID PO Last administered on 12/17/17at 22:02; Start at 21:00; Stop 12/18/17 at 17:08; Status DC Amlodipine Besylate (Norvasc) 5 mg DAILY PO Last administered on 12/16/17at 08: 11; Start 12/15/17 at 19:00; Stop 12/16/17 at 18:15; Status DC Lisinopril (Prinivil) 20 mg DAILY PO Last administered on 12/16/17at 09:00; Start 12/16/17 at 09:00; Stop 12/16/17 at 18:55; Status DC Nifedipine (Procardia Xl) 30 mg BID PO ; Start 12/16/17 at 21:00; Stop 12/16/17 at 21:00; Status DC Nifedipine (Procardia Xl) 30 mg BID PO ; Start 12/16/17 at 19:00; Stop 12/16/17 at 19:00; Status DC Acetaminophen/ Hydrocodone Bitart ([place] 5-325 Mg) 1 tab Q4H PRN PO pain 1-10 ; Start 12/16/17 at 19:00; Stop 12/16/17 at 19:18; Status DC Nifedipine (Procardia Xl) 30 mg BID PO Last administered on 12/17/17at 22:02; Start 12/17/17 at 09:00; Stop 12/18/17 at 17:08; Status DC Nifedipine (Procardia Xl) 30 mg ONCE ONCE PO Last administered on 12/16/17at 20 :12; Start 12/16/17 at 19:00; Stop 12/16/17 at 19:19; Status DC Hydromorphone HCl (Dilaudid) 0.5 mg Q6H PRN PO PAIN 1-10; Start 12/16/17 at 19: 30; Stop 12/18/17 at 17:08; Status DC Miscellaneous (Pill Splitter) 1 ea UNSCH PRN OTHER SEE LABEL COMMENTS; Start at 19:30; Stop 12/20/17 at 17:54; Status DC Clindamycin/ Sodium Chloride 50 ml @ 100 mls/hr Q6H IV Last administered on at 15:42; Start 12/17/17 at 21:00; Stop 12/20/17 at 17:54; Status DC Lactulose (Lactulose Liq) 30 ml DAILY PO Last administered on 12/20/17at 09:37; Start 12/18/17 at 09:00; Stop 12/20/17 at 17:54; Status DC Collagenase (Santyl Oint) 1 applic UNSCH TOPICAL Last administered on at 05:11; Start 12/18/17 at 16:15; Stop 12/20/17 at 17:54; Status DC Lorazepam (Ativan Inj) 0.5 mg Q4H PRN IV PUSH AGITATION AND/OR HALLUCINATION Last administered on 12/18/17at 22:39; Start 12/18/17 at 17:15; Stop 12/20/17 at 17:54; Status DC Levetriacetam 500 mg/Sodium Chloride 105 ml @ 420 mls/hr Q12HR IV Last administered on 12/20/17at 09:33; Start 12/18/17 at 21:00; Stop 12/20/17 at 17:54 ; Status DC Potassium Chloride/Dextrose/ Sod Cl 1,000 ml @ 84 mls/hr [id number] IV Last administered on 12/20/17at 11:09; Start 12/18/17 at 17:15; Stop 12/20/17 at 11:50 ; Status DC Enalaprilat (Vasotec Inj) 1.25 mg Q6H PRN IV sbp above 160 Last administered on 12/20/17at 15:42; Start 12/20/17 at 15:15; Stop 12/20/17 at 17:54; Status DC (Yoel Corbett MD) Medical Decision Making MDM Remarks 72-year-old female status post fall TBI with bilateral subarachnoid hemorrhage, cerebral edema, occipital skull fracture (Madison Zhou) Plan Plan Remarks Neurologically stable, cont nonsurgical management serial neuro checks, follow-up neurological examination, medical management (Madison Zhou) Attending Statement 1. syncope/collapse 2. SAH/basilar skull fx 3. junctional rhythm 4. htn 5. diabetes 6. RA/chronic steroids Subarachnoid hemorrhage ICD Codes: I60.9 - Nontraumatic subarachnoid hemorrhage, unspecified Status: Acute Plan: Stable. continue telemetry. I reviewed her CT scan brain showed: evolving bilateral subarachnoid hemorrhage with progressive encephalomalacia and edema on the left frontal mid to lower convexities. There is slight increased associated mass effect with increased [id number] subfalcine shift measuring up to 3 mm. Evolving trace intraventricular hemorrhage. No new intercurrent hemorrhage. Hypertension - lisinopril -DC'd - change norvasc to procardia XL 30mg BID -DC'd, patient not taking PO well BP medication transitioned to IV - Enalapril 2.5 mg IV as needed for HTN Plan: -goal to maintain SBP 120 - 150 due to subarachnoid hemorrhage - lisinopril -DC'd - change norvasc to procardia XL 30mg BID -DC'd, patient not taking PO well BP medication transitioned to IV - Enalapril 2.5 mg IV as needed for HTN Scalp wound ICD Codes: S01.00XA - Unspecified open wound of scalp, initial encounter Status: Acute Plan: - start clindamycin - obtain wound care consult Cellulitis of forearm ICD Codes: L03.119 - Cellulitis of unspecified part of limb Status: Acute Plan: - start clindamycin UTI (lower urinary tract infection) ICD Codes: N39.0 - Urinary tract infection, site not specified Status: Acute Plan: - abnormal UA - urine Culture growing gram negative rods - afebrile - leukocytosis improving - started on clindamycin Junctional cardiac arrhythmia ICD Codes: I49.8 - Other specified cardiac arrhythmias Status: Acute Plan: - Case d/w Dr. Jones, 12/16. NO EP study at this time. Continue to observe clinical status. Skull fracture ICD Codes: S02.91XA - Unspecified fracture of skull, initial encounter for closed fracture Status: Acute Syncope and collapse ICD Codes: R55 - Syncope and collapse Status: Acute HTN (hypertension) Rheumatoid arthritis ICD Codes: M06.9 - Rheumatoid arthritis, unspecified Status: Chronic Diabetes ICD Codes: E11.9 - Type 2 diabetes mellitus without complications Status: Chronic Plan: - accu check ACHS with SSI coverage There is concern regarding her respiratory function. She is DNR and family requests no intubation Continue Protonix for stress ulcer prophylaxis Continue Tyshawn hose and SCD's for DVT prophylaxis The exam, history, and the medical decision-making described in the above note were completed with the assistance of the mid-level provider. I reviewed and agree with the findings presented. I attest that I had a [id number] encounter with the patient on the same day, and personally performed and documented my assessment and findings in the medical record. (Yoel Corbett MD) Madison Zhou Dec 20, 2017 12:36 Yoel Corbett MD Dec 21, 2017 16:08
--- NOTE | 2017-12-20 14:02 | HHI.PR ---
Subjective Remarks Pt unable to tolerate PO intake this AM without chocking. Objective Vitals Vital Signs Date Time Temp Pulse Resp B/P (MAP) Pulse Ox O2 Delivery O2 Flow Rate FiO2 12/20/17 13:54 90 12/20/17 12:00 99.8 88 20 173/109 (130) 100 12/20/17 10:50 84 12/20/17 10:19 86 21 12/20/17 08:00 98.7 87 22 160/90 (113) 94 12/20/17 04:00 98.4 89 22 135/90 (105) 93 12/20/17 01:13 140/64 (89) 12/20/17 00:00 98.5 95 22 166/81 (109) 98 12/19/17 22:55 90 12/19/17 21:42 98 Room Air 12/19/17 20:00 98.3 78 18 160/75 (103) 98 12/19/17 17:16 98.5 82 20 160/85 (110) 91 12/19/17 16:07 99.1 88 23 148/78 (101) 97 Result Diagram: 12/19/17 1055 12/19/17 1035 Imaging Last Impressions Chest X-Ray 12/17/17 0000 Signed Impressions: CONCLUSION: Minimal left basilar density could be atelectasis or infiltrate. Head CT 12/16/17 1020 Signed Impressions: CONCLUSION: 1. Evolving bilateral subarachnoid hemorrhage with progressive encephalomalaci a and edema in the left frontal mid to lower convexities. There is slight incre ased associated mass effect with increased yfoy-sh-opqra subfalcine shift measu ring up to 3 mm. 2. Evolving trace intraventricular hemorrhage. 3. No new intercurrent hemorrhage. Abdomen/Pelvis CT 12/12/17 0000 Signed Impressions: CONCLUSION: 1. No abdominal visceral injury. Cervical Spine CT 12/11/17 1613 Signed Impressions: CONCLUSION: 1. Right occipital calvarial fracture. 2. Degenerative subluxations and advanced multilevel degenerative changes. Neck CTA 12/11/17 0000 Addendum Impressions: CONCLUSION: 1. No hemodynamically significant stenosis in either carotid artery. 2. Mild narrowing in the left carotid bulb estimated to be 30-40 %. Head CTA 12/11/17 0000 Signed Impressions: CONCLUSION: 1. Right occipital calvarial fracture. 2. No large vessel stenosis or aneurysm. 3. Dominant left vertebral artery. 4. Distal right vertebral artery not seen. Objective Remarks GENERAL: This is a well-nourished, well-developed patient, in no apparent distress. CARDIOVASCULAR: Regular rate and rhythm RESPIRATORY: Clear to auscultation. Breath sounds equal bilaterally. GASTROINTESTINAL: Abdomen soft, non-tender, nondistended. Normal active bowel sounds MUSCULOSKELETAL: Extremities without clubbing, cyanosis, or edema. NEURO: Alert & Oriented to person only. Moves all ext x4 Skin: wound at posterior scalp erythema at both forearms A/P Problem List: (1) Subarachnoid hemorrhage ICD Codes: I60.9 - Nontraumatic subarachnoid hemorrhage, unspecified Status: Acute Plan: 1. syncope/collapse 2. SAH/basilar skull fx 3. junctional rhythm 4. htn 5. diabetes 6. RA/chronic steroids CT brain (12/16) - Evolving bilateral subarachnoid hemorrhage with progressive encephalomalacia and edema on the left frontal mid to lower convexities. - There is slight increased associated mass effect with increased ogta-sl-iolla subfalcine shift measuring up to 3 mm. Evolving trace intraventricular hemorrhage. - No new intercurrent hemorrhage. - Case d/w Dr. Jones, 12/16. NO EP study at this time. Continue to observe clinical status. - Case d/w Dr. Corbett (12/20). He agrees with Hospice. - pt NPO per ST - IV vasotec prn - PO prednisone (NPO) - IV keppra - SSI - DNR status - Pt is actively dying. [facility] would be appropriate for symptom mgmt, eg. chocking, pain. - met with pt/significant other/ sister(POA)/ 2 brothers/ rjauim-ch-lcx(RN) () - pt expressed earlier in the meet that she would NOT want PEG - POA requested Hospice. Hospice Consult placed. (2) Scalp wound ICD Codes: S01.00XA - Unspecified open wound of scalp, initial encounter Status: Acute Plan: - clindamycin - appreciate input from wound care. (3) Cellulitis of forearm ICD Codes: L03.119 - Cellulitis of unspecified part of limb Status: Acute Plan: - clindamycin (4) UTI (lower urinary tract infection) ICD Codes: N39.0 - Urinary tract infection, site not specified Status: Acute Plan: - abnormal UA - urine Culture growing gram negative rods - afebrile - leukocytosis improving, WBC 15.6 (12/18) -> 12.4 (12/19) - pt started on clindamycin (5) Junctional cardiac arrhythmia ICD Codes: I49.8 - Other specified cardiac arrhythmias Status: Acute Plan: - Case d/w Dr. Jones, 12/16. NO EP study at this time. Continue to observe clinical status. (6) Skull fracture ICD Codes: S02.91XA - Unspecified fracture of skull, initial encounter for closed fracture Status: Acute (7) Syncope and collapse ICD Codes: R55 - Syncope and collapse Status: Acute (8) HTN (hypertension) ICD Codes: I10 - Essential (primary) hypertension Status: Chronic Plan: -goal to maintain SBP 120 - 150 due to subarachnoid hemorrhage - lisinopril -DC'd - change norvasc to procardia XL 30mg BID -DC'd, patient not taking PO well BP medication transitioned to IV - Enalapril 2.5 mg IV as needed for HTN (9) Rheumatoid arthritis ICD Codes: M06.9 - Rheumatoid arthritis, unspecified Status: Chronic (10) Diabetes ICD Codes: E11.9 - Type 2 diabetes mellitus without complications Status: Chronic Plan: - accu check ACHS with SSI coverage Problem Qualifiers (1) Scalp wound: (2) Skull fracture: Qualified Codes: S02.119B - Unspecified fracture of occiput, initial encounter for open fracture Dany Licea DO Dec 20, 2017 14:02
[2017-12-20] MEDS ORDERED: ENALAPRILAT 1.25 MG/ML VIAL IV PRN (15:15)
[2017-12-20] MEDS ORDERED: LEVE500S PO (15:57)
--- NOTE | 2017-12-20 15:59 | HHI.DCPOC ---
Discharge Care Plan Diagnosis: (1) Scalp wound (2) Cellulitis of forearm (3) Subdural hemorrhage Goals to Promote Your Health * To prevent worsening of your condition and complications * To maintain your health at the optimal level Directions to Meet Your Goals Take your medications as prescribed Follow your dietary instruction Follow activity as directed Keep your appointments as scheduled Take your immunizations and boosters as scheduled If your symptoms worsen call your PCP, if no PCP go to Urgent Care Center or Emergency Room Smoking is Dangerous to Your Health. Avoid second hand smoke Call the 24-hour hour crisis hotline for domestic abuse at Dany Licea DO Dec 20, 2017 15:59
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
== END 2017-12-20 17:53 | disposition hospice, inpatient (51) | DRG 82 ==
LOC: NEPC 16:04 → NEDA 19:11 → N03A 20:47 → N05B 12-19 16:23
PROVIDERS: ADMIT Hospitalist; ATTEND Hospitalist
DX: S06.6X9A Traumatic subarachnoid hemorrhage with loss of consciousness of unspecified duration, initial encounter (principal); G93.40 Encephalopathy, unspecified; E11.42 Type 2 diabetes mellitus with diabetic polyneuropathy; I45.89 Other specified conduction disorders; E11.649 Type 2 diabetes mellitus with hypoglycemia without coma; M34.9 Systemic sclerosis, unspecified; R47.01 Aphasia; L03.114 Cellulitis of left upper limb; L03.113 Cellulitis of right upper limb; N39.0 Urinary tract infection, site not specified; J44.9 Chronic obstructive pulmonary disease, unspecified; M06.9 Rheumatoid arthritis, unspecified; E78.5 Hyperlipidemia, unspecified; S06.5X9A Traumatic subdural hemorrhage with loss of consciousness of unspecified duration, initial encounter; S02.11HA Other fracture of occiput, left side, initial encounter for closed fracture; W18.30XA Fall on same level, unspecified, initial encounter; I10 Essential (primary) hypertension; I73.00 Raynaud's syndrome without gangrene; F41.9 Anxiety disorder, unspecified; E78.00 Pure hypercholesterolemia, unspecified; E86.0 Dehydration; M79.7 Fibromyalgia; K21.9 Gastro-esophageal reflux disease without esophagitis; S01.01XA Laceration without foreign body of scalp, initial encounter; B96.20 Unspecified Escherichia coli [E. coli] as the cause of diseases classified elsewhere; Z66 Do not resuscitate; E04.2 Nontoxic multinodular goiter; M19.90 Unspecified osteoarthritis, unspecified site; R29.6 Repeated falls; M25.512 Pain in left shoulder; M54.9 Dorsalgia, unspecified; Z85.820 Personal history of malignant melanoma of skin; Z85.3 Personal history of malignant neoplasm of breast; Z85.118 Personal history of other malignant neoplasm of bronchus and lung; Z79.52 Long term (current) use of systemic steroids; Z79.84 Long term (current) use of oral hypoglycemic drugs; Z79.82 Long term (current) use of aspirin; Z87.891 Personal history of nicotine dependence; Z86.711 Personal history of pulmonary embolism; Z86.718 Personal history of other venous thrombosis and embolism
CPT/HCPCS: 70450; 70496; 70498; 71045; 72125; 74177; 80048; 80053; 81001; 82550; 82948; 83605; 83735; 84100; 84484; 85025; 85610; 85730; 87077; 87086; 87186; 87641; 93005; 93306; 94640; 94664; 96365; J1815; J1953; J2060; J2270; J3480; J7030; J7050; J7512; Q9967